=== PATIENT | female | born 1940 | race Caucasian/White ===

== ENCOUNTER → 2020-09-01 08:09 | Outpatient (BNVA) | payer MEDICARE, SELFPAY | PROVIDERS: Visit Provider Internal Medicine | DX: I48.92 Unspecified atrial flutter (principal); Z51.81 Encounter for therapeutic drug level monitoring; Z79.01 Long term (current) use of anticoagulants | CPT/HCPCS: 85610; 99211 ==

== ENCOUNTER → 2020-09-16 08:12 | Outpatient (BNVA) | payer MEDICARE, SELFPAY | PROVIDERS: Visit Provider Internal Medicine | DX: I48.92 Unspecified atrial flutter (principal); Z51.81 Encounter for therapeutic drug level monitoring; Z79.01 Long term (current) use of anticoagulants | CPT/HCPCS: 85610; 99211 ==

== ENCOUNTER → 2020-10-13 08:02 | Outpatient (BNVA) | payer MEDICARE, SELFPAY | PROVIDERS: Visit Provider Internal Medicine | DX: I48.92 Unspecified atrial flutter (principal); Z51.81 Encounter for therapeutic drug level monitoring; Z79.01 Long term (current) use of anticoagulants | CPT/HCPCS: 85610; 99211 ==

== ENCOUNTER → 2020-11-11 08:04 | Outpatient (BNVA) | payer MEDICARE, SELFPAY | PROVIDERS: Visit Provider Internal Medicine | DX: I48.92 Unspecified atrial flutter (principal); Z79.01 Long term (current) use of anticoagulants; Z51.81 Encounter for therapeutic drug level monitoring | CPT/HCPCS: 85610; 99211 ==

== ENCOUNTER → 2020-11-25 08:12 | Outpatient (BNVA) | payer MEDICARE, SELFPAY | PROVIDERS: Visit Provider Internal Medicine | DX: I48.92 Unspecified atrial flutter (principal); Z51.81 Encounter for therapeutic drug level monitoring; Z79.01 Long term (current) use of anticoagulants | CPT/HCPCS: 85610; 99211 ==

== ENCOUNTER → 2020-12-16 08:21 | Outpatient (BNVA) | payer MEDICARE, SELFPAY | PROVIDERS: PCP Internal Medicine; Visit Provider Internal Medicine | DX: I48.92 Unspecified atrial flutter (principal); Z51.81 Encounter for therapeutic drug level monitoring; Z79.01 Long term (current) use of anticoagulants | CPT/HCPCS: 85610; 99211 ==

== ENCOUNTER → 2021-01-13 08:02 | Outpatient (BNVA) | payer MEDICARE, SELFPAY | PROVIDERS: PCP Internal Medicine; Visit Provider Internal Medicine | DX: I48.92 Unspecified atrial flutter (principal); Z51.81 Encounter for therapeutic drug level monitoring; Z79.01 Long term (current) use of anticoagulants | CPT/HCPCS: 85610; 99211 ==

== ENCOUNTER → 2021-01-31 09:07 | Outpatient (BNVA) | payer MEDICARE, SELFPAY | PROVIDERS: PCP Internal Medicine; Visit Provider Internal Medicine | DX: E66.9 Obesity, unspecified (principal); J44.9 Chronic obstructive pulmonary disease, unspecified; I48.92 Unspecified atrial flutter; Z79.01 Long term (current) use of anticoagulants; Z51.81 Encounter for therapeutic drug level monitoring | CPT/HCPCS: 85610; 99211; 99212 ==

== ENCOUNTER → 2021-02-22 08:21 | Outpatient (BNVA) | payer MEDICARE, SELFPAY | PROVIDERS: PCP Internal Medicine; Visit Provider Internal Medicine | DX: I48.92 Unspecified atrial flutter (principal); Z79.01 Long term (current) use of anticoagulants; Z51.81 Encounter for therapeutic drug level monitoring | CPT/HCPCS: 85610; 99211 ==

== ENCOUNTER 2021-03-15 07:32 | Outpatient (REF) | payer MEDICARE, SELFPAY ==
[2021-03-15 08:08] LABS: MANUAL DIFF FLAG NO
[2021-03-15 08:25] LABS: Basophils Absolute Auto 0.1 X10*3/uL (0.0-0.2); Eosinophils Absolute Auto 0.2 X10*3/uL (0.0-0.4); Eosinophils Percent Auto 1.8 % (0-4); Hematocrit 45.4 % (37-47); Hemoglobin 15.1 g/dl (12.0-16.0); Imm Gran Abs Auto 0.03 X10*3/uL (0.00-0.03); Imm Gran Pct Auto 0.3 % (0.0-0.4); Lymphocytes Absolute Auto 3.1 X10*3/uL (1.2-4.9); Lymphocytes Percent Auto 33.7 % (20-40); Mean Corpuscular HGB Conc 33.3 g/dl (31.0-35.0); Mean Corpuscular Hemoglobin 30.7 pg (27.0-33.0); Mean Corpuscular Volume 92.3 fL (80-98); Mean Platelet Volume 9.9 fL (9.4-12.3); Monocytes Absolute Auto 0.6 X10*3/uL (0.1-1.2); Monocytes Percent Auto 6.7 % (2-11); Neutrophils Absolute Auto 5.2 X10*3/uL (2.0-8.3); Neutrophils Percent Auto 56.5 % (45-73); Platelet Count 311 X10*3/uL (160-400); Red Blood Count 4.92 X10*6/uL (4.20-5.50); Red Cell Distribution Width 12.4 % (11.0-16.0); White Blood Count 9.2 X10*3/uL (4.8-10.8)
[2021-03-15 08:35] LABS: Alanine Aminotransferase 13 U/L (0-31); Albumin Level 3.8 g/dL (3.5-5.0); Alkaline Phosphatase 63 U/L (39-117); Anion Gap 14 (12-20); Aspartate Amino Transferase 14 U/L (5-31); Bilirubin Total 0.3 mg/dL (0.0-1.0); Blood Urea Nitrogen 28 mg/dL (9-16); Calcium 9.4 mg/dL (8.4-10.2); Carbon Dioxide 30 mmol/L (22-29); Chloride 104 mmol/L (96-108); Cholesterol 198 mg/dL; Estimated Glomerular Filt Rate 51; Glucose Fasting 123 mg/dL (60-99); HDL Cholesterol 50 mg/dL; LDL Cholesterol Calculated 90 mg/dl; Potassium 3.9 mmol/L (3.3-5.1); Sodium 144 mmol/L (135-145); Total Protein 6.4 g/dL (6.5-8.0); Triglycerides 292 mg/dL
[2021-03-15 08:57] LABS: TSH reflex Free T4 1.25 uIU/mL (0.32-4.0)
[2021-03-15 09:19] LABS: Estimated Average Glucose 140 mg/dL; Hemoglobin A1c % 6.5 %
[2021-03-15 09:26] LABS: Glucose Urine UA NEG (NEG); Leukocyte Esterase Urine 2+ (NEG); Nitrite Urine POS (NEG); PH 6.5 (5.0-8.0); UACC Culture Trigger YES; Urine Blood TRACE (NEG); Urine Ketones NEG (NEG); Urine Protein NEG (NEG-TRACE)
[2021-03-15 09:33] LABS: Appearance Urine HAZY; Color Urine YELLOW
[2021-03-15 09:49] LABS: Bacteria Urine 4+ /LPF; RBC Urine 0-2 /HPF (0); Renal Epithelial Cells Urine TRACE /LPF; Squamous Epithelial Cell Urine 1+ /LPF
[2021-03-15 10:16] LABS: Creatinine Urine 113.31 mg/dL; Microalbum/Creatinine Ratio Ur 13.2 ug/mg cr
== END 2021-03-15 07:33 | disposition home or self-care (01) ==
LOC: HO.LAB 07:32
PROVIDERS: PCP Internal Medicine; Visit Provider Internal Medicine
DX: I10 Essential (primary) hypertension (principal); I48.0 Paroxysmal atrial fibrillation; E78.00 Pure hypercholesterolemia, unspecified; E11.69 Type 2 diabetes mellitus with other specified complication; E66.9 Obesity, unspecified
CPT/HCPCS: 36415; 80053; 80061; 81001; 81003; 82043; 83036; 84443; 85025; 87086; 87088; 87186

== ENCOUNTER → 2021-03-20 08:10 | Outpatient (BNVA) | payer MEDICARE, SELFPAY | PROVIDERS: PCP Internal Medicine; Visit Provider Internal Medicine | DX: I48.92 Unspecified atrial flutter (principal); Z51.81 Encounter for therapeutic drug level monitoring; Z79.01 Long term (current) use of anticoagulants | CPT/HCPCS: 85610; 99211 ==

== ENCOUNTER → 2021-04-18 08:00 | Outpatient (BNVA) | payer MEDICARE, SELFPAY | PROVIDERS: PCP Internal Medicine; Visit Provider Internal Medicine | DX: I48.92 Unspecified atrial flutter (principal); Z51.81 Encounter for therapeutic drug level monitoring; Z79.01 Long term (current) use of anticoagulants | CPT/HCPCS: 85610; 99211 ==

== ENCOUNTER → 2021-05-09 08:09 | Outpatient (REF) | payer MEDICARE, SELFPAY ==
--- NOTE | 2021-05-09 08:30 | CA_ITS ---
Transthoracic Echocardiogram Patient (Last, First, Middle): Rosa Carter R Gender: Female Date of : 1940 Age: 81 Procedure Date: 05/09/2021 Procedure Type: Transthoracic Echocardiogram Location: OP Height: 160.02 cm Weight: 89.36 kg BSA: 1.92 m2 Heart Rate: bpm BP: 140 / 70 mmHg Pool Nurse: Referring MD: Mike Tejada MD Symptoms: I35.0 NONRHEUMATIC Conclusions: - The left ventricular systolic function is normal. The visually estimated ejection fraction is between 60-65%. - There is moderate calcification of the aortic valve. There is mild aortic valve stenosis. Findings Procedure Information The patient receives contrast. Left Ventricle Normal left ventricular cavity size. The left ventricular systolic function is normal. The visually estimated ejection fraction is between 60-65%. There is no evidence of regional wall motion abnormalities. Evidence suggests grade I (mild) diastolic dysfunction. There is mild septal and mild basal asymmetric hypertrophy. Right Ventricle Normal right ventricular cavity size and systolic function. Atria Both atria are normal in size. Aortic Valve There is moderate calcification of the aortic valve. There is mild aortic valve stenosis. The peak aortic velocity is 2.48 m/s with a calculated peak gradient of 25 mmHg. The mean gradient is 13 mmHg. The aortic valve area is 1.60 cm2. There is no aortic valve regurgitation. Mitral Valve There is mild anterior mitral leaflet thickening. There is trace mitral valve regurgitation. There is no mitral valve stenosis. Pulmonic Valve The pulmonic valve was not well visualized. Tricuspid Valve Normal tricuspid valve structure. There is trace tricuspid valve regurgitation. The pulmonary artery systolic pressure is normal. Great Vessels The aortic annulus, sinuses of valsalva, and asc aorta are normal in size. Venous The inferior vena cava was not well visualized. The inferior vena cava is normal in size and collapses greater than 50% with inspiration. Pericardium/Pleural There is no evidence of pericardial effusion. Prior Study Comparison No significant change compared to prior study dated: 04/29/2020. Measurements 2D Linear Measurements RVIDd: 3.07 RVIDd Index: 0.30 IVSd: 1.15 0.6-0.9/0.6-1.0 cm LVIDd: 4.68 3.9-5.3/4.2-5.9 cm LVIDd Index: 0.46 2.4-3.2/2.2-3.1 cm/m2 LVIDs: 2.82 2.0-3.6 cm LVPWd: 0.95 0.7-1.1 cm Ao Root: 2.90 2.1-3.5 cm LA Diam: 3.30 2.7-3.8/3.0-4.0 cm LAIDs Index: 0.32 1.5-2.3 cm/m2 LV Mass: 216.96 67-162/88-224 g LV Mass Index: 21.12 43-95/49-115 g/m2 LVOT Diam: 2.30 3.0+(-)1.3 cm 2D Systolic Function EF 4C: 57.30 >55% EF 2C: 64.90 >55% EF BiP: 62.00 >55% Mitral Valve MV Pk E: 0.60 MV PK A: 0.80 MV Decel Time: 354.00 E/A: 0.70 E'Lateral: 6.96 E'Medial: 3.59 E/E' Med: 16.60 E/E' Lat: 8.60 Aortic Valve AoV Pk Daniel: 2.48 AoV Mn Daniel: 1.70 AoV VTI: 0.62 AoV Pk Grad: 25.00 Aov Mn Grad: 13.00 BELINDA Cont.VTI: 1.60 LVOT LVOT Pk Daniel: 0.91 LVOT Mn Daniel: 0.66 LVOT VTI: 0.24 LVOT Pk Grad: 3.00 LVOT Mn Grad: 2.00 LVOT Diam: 2.30 LVOT Area: 4.15 Diastolic Function MV Pk E: 0.60 MV Pk A: 0.80 E/A: 0.70 E'Medial: 3.59 E/E' Med: 16.60 E' Laterial: 6.96 E/E' Lat: 8.60 Tricuspid Valve TR Pk Daniel: 2.26 TR Pk Grad: 20.00 RA Press: 3.00 RVSP: 23.00 Great Vessels Aorta Ao Root-2D: 2.90 2.0-3.7 cm Ao Asc: 3.50 2.1-3.4 cm Ao Arch: 2.50 Updated in Other Vendor System with Status of Final Mike Tejada MD electronically signed on 05/09/2021 12:31:52 PM with status of Final
== END ==
LOC: HO.CARD 08:09
PROVIDERS: Visit Provider Internal Medicine
DX: J44.9 Chronic obstructive pulmonary disease, unspecified (principal); I35.0 Nonrheumatic aortic (valve) stenosis
CPT/HCPCS: 85610; 93306; 99211; Q9957

== ENCOUNTER → 2021-05-18 09:08 | Outpatient (BNVA) | payer MEDICARE, SELFPAY | PROVIDERS: PCP Internal Medicine; Referring Provider Internal Medicine; Visit Provider Internal Medicine | DX: I35.0 Nonrheumatic aortic (valve) stenosis (principal); I48.92 Unspecified atrial flutter; I10 Essential (primary) hypertension; E11.8 Type 2 diabetes mellitus with unspecified complications | CPT/HCPCS: 93005; 99212 ==

== ENCOUNTER → 2021-05-29 08:48 | Outpatient (BNVA) | payer MEDICARE, SELFPAY | PROVIDERS: PCP Internal Medicine; Visit Provider Internal Medicine | DX: I48.92 Unspecified atrial flutter (principal); J44.9 Chronic obstructive pulmonary disease, unspecified; E66.9 Obesity, unspecified; J98.4 Other disorders of lung; Z79.899 Other long term (current) drug therapy; Z51.81 Encounter for therapeutic drug level monitoring; Z79.01 Long term (current) use of anticoagulants | CPT/HCPCS: 85610; 99211; 99212 ==

== ENCOUNTER → 2021-06-27 08:12 | Outpatient (BNVA) | payer MEDICARE, SELFPAY | PROVIDERS: PCP Internal Medicine; Visit Provider Internal Medicine | DX: I48.92 Unspecified atrial flutter (principal); Z51.81 Encounter for therapeutic drug level monitoring; Z79.01 Long term (current) use of anticoagulants | CPT/HCPCS: 85610; 99211 ==

== ENCOUNTER → 2021-07-25 08:23 | Outpatient (BNVA) | payer MEDICARE, SELFPAY | PROVIDERS: PCP Internal Medicine; Visit Provider Internal Medicine | DX: I48.92 Unspecified atrial flutter (principal); Z51.81 Encounter for therapeutic drug level monitoring; Z79.01 Long term (current) use of anticoagulants | CPT/HCPCS: 85610; 99211 ==

== ENCOUNTER → 2021-08-29 08:13 | Outpatient (BNVA) | payer MEDICARE, SELFPAY | PROVIDERS: PCP Internal Medicine; Visit Provider Internal Medicine | DX: I48.92 Unspecified atrial flutter (principal); Z51.81 Encounter for therapeutic drug level monitoring; Z79.01 Long term (current) use of anticoagulants | CPT/HCPCS: 85610; 99211 ==

== ENCOUNTER → 2021-09-26 08:31 | Outpatient (BNVA) | payer MEDICARE, SELFPAY | PROVIDERS: PCP Internal Medicine; Visit Provider Internal Medicine | DX: I48.92 Unspecified atrial flutter (principal); Z51.81 Encounter for therapeutic drug level monitoring; Z79.01 Long term (current) use of anticoagulants | CPT/HCPCS: 85610; 99211 ==

== ENCOUNTER 2021-10-20 10:12 | Outpatient (REF) | payer MEDICARE, SELFPAY ==
[2021-10-20 10:28] LABS: MANUAL DIFF FLAG NO
[2021-10-20 11:03] LABS: Basophils Absolute Auto 0.1 X10*3/uL (0.0-0.2); Basophils Percent Auto 0.8 % (0-2); Eosinophils Absolute Auto 0.2 X10*3/uL (0.0-0.4); Eosinophils Percent Auto 1.9 % (0-4); Hematocrit 43.1 % (37.0-47.0); Hemoglobin 13.8 g/dl (12.0-16.0); Imm Gran Abs Auto 0.03 X10*3/uL (0.00-0.03); Imm Gran Pct Auto 0.3 % (0.0-0.4); Lymphocytes Absolute Auto 2.3 X10*3/uL (1.2-4.9); Lymphocytes Percent Auto 23.5 % (20-40); Mean Corpuscular Volume 93.7 fL (80.0-98.0); Monocytes Absolute Auto 0.7 X10*3/uL (0.1-1.2); Monocytes Percent Auto 6.9 % (2-11); Neutrophils Absolute Auto 6.4 x10*3/uL (2.0-8.3); Neutrophils Percent Auto 66.6 % (45-73); Platelet Count 405 X10*3/uL (160-400); Red Cell Distribution Width 12.5 % (11.0-16.0); White Blood Count 9.6 X10*3/uL (4.8-10.8)
[2021-10-20 11:15] LABS: Estimated Average Glucose 169 mg/dL; Hemoglobin A1c % 7.5 %
[2021-10-20 11:26] LABS: Alanine Aminotransferase 13 U/L (0-31); Albumin Level 3.7 g/dL (3.5-5.0); Alkaline Phosphatase 82 U/L (39-117); Anion Gap 12 (12-20); Aspartate Amino Transferase 16 U/L (5-31); Bilirubin Total 0.5 mg/dL (0.0-1.0); Blood Urea Nitrogen 21 mg/dL (9-16); Calcium 9.3 mg/dL (8.4-10.2); Carbon Dioxide 30 mmol/L (22-29); Chloride 105 mmol/L (96-108); Cholesterol 189 mg/dL; Estimated Glomerular Filt Rate 50; Glucose Fasting 134 mg/dL (60-99); HDL Cholesterol 46 mg/dL; LDL Cholesterol Calculated 97 mg/dl; Potassium 4.1 mmol/L (3.3-5.1); Sodium 143 mmol/L (135-145); Total Protein 6.7 g/dL (6.5-8.0); Triglycerides 233 mg/dL
[2021-10-20 13:58] LABS: Appearance Urine HAZY; Color Urine YELLOW; Glucose Urine UA NEG (NEG); Leukocyte Esterase Urine 2+ (NEG); Nitrite Urine POS (NEG); UACC Culture Trigger YES; Urine Blood TRACE (NEG); Urine Ketones NEG (NEG); Urine Protein NEG (NEG-TRACE)
[2021-10-20 14:28] LABS: Bacteria Urine 4+ /LPF; Squamous Epithelial Cell Urine 1+ /LPF
[2021-10-20 14:29] LABS: RBC Urine 0 /HPF (0)
== END 2021-10-20 10:13 | disposition home or self-care (01) ==
LOC: HO.LAB 10:12
PROVIDERS: PCP Internal Medicine; Visit Provider Internal Medicine
DX: I48.92 Unspecified atrial flutter (principal); Z51.81 Encounter for therapeutic drug level monitoring; Z79.01 Long term (current) use of anticoagulants; E11.69 Type 2 diabetes mellitus with other specified complication; E78.00 Pure hypercholesterolemia, unspecified; I10 Essential (primary) hypertension; E66.9 Obesity, unspecified; I48.0 Paroxysmal atrial fibrillation; J44.9 Chronic obstructive pulmonary disease, unspecified
CPT/HCPCS: 36415; 80053; 80061; 81001; 83036; 84443; 85025; 85610; 87086; 87088; 87186; 99211

== ENCOUNTER → 2021-11-02 08:34 | Outpatient (BNVA) | payer MEDICARE, SELFPAY | PROVIDERS: PCP Internal Medicine; Visit Provider Internal Medicine | DX: I48.92 Unspecified atrial flutter (principal); Z51.81 Encounter for therapeutic drug level monitoring; Z79.01 Long term (current) use of anticoagulants | CPT/HCPCS: 85610; 99211 ==

== ENCOUNTER → 2021-11-16 09:28 | Outpatient (BNVA) | payer MEDICARE, SELFPAY | PROVIDERS: PCP Internal Medicine; Visit Provider Internal Medicine | DX: I48.92 Unspecified atrial flutter (principal); Z51.81 Encounter for therapeutic drug level monitoring; Z79.01 Long term (current) use of anticoagulants | CPT/HCPCS: 85610; 99211 ==

== ENCOUNTER → 2021-11-28 09:39 | Outpatient (BNVA) | payer MEDICARE, SELFPAY | PROVIDERS: PCP Internal Medicine; Visit Provider Internal Medicine | DX: J44.9 Chronic obstructive pulmonary disease, unspecified (principal) | CPT/HCPCS: Q3014 ==

== ENCOUNTER → 2021-12-18 08:36 | Outpatient (BNVA) | payer MEDICARE, SELFPAY | PROVIDERS: PCP Internal Medicine; Visit Provider Internal Medicine | DX: I48.92 Unspecified atrial flutter (principal); Z51.81 Encounter for therapeutic drug level monitoring; Z79.01 Long term (current) use of anticoagulants | CPT/HCPCS: 85610; 99211 ==

== ENCOUNTER → 2022-01-15 08:46 | Outpatient (BNVA) | payer MEDICARE, SELFPAY | PROVIDERS: PCP Internal Medicine; Visit Provider Internal Medicine | DX: I48.92 Unspecified atrial flutter (principal); Z51.81 Encounter for therapeutic drug level monitoring; Z79.01 Long term (current) use of anticoagulants | CPT/HCPCS: 85610; 99211 ==

== ENCOUNTER 2022-02-15 08:26 | Outpatient (REF) | payer MEDICARE, SELFPAY ==
[2022-02-15 09:11] LABS: MANUAL DIFF FLAG NO
[2022-02-15 09:22] LABS: Basophils Absolute Auto 0.1 X10*3/uL (0.0-0.2); Basophils Percent Auto 0.9 % (0-2); Eosinophils Absolute Auto 0.2 X10*3/uL (0.0-0.4); Eosinophils Percent Auto 1.9 % (0-4); Hemoglobin 13.8 g/dl (12.0-16.0); Imm Gran Abs Auto 0.04 X10*3/uL (0.00-0.03); Imm Gran Pct Auto 0.4 % (0.0-0.4); Lymphocytes Absolute Auto 2.4 X10*3/uL (1.2-4.9); Lymphocytes Percent Auto 25.6 % (20-40); Mean Corpuscular HGB Conc 32.1 g/dl (31.0-35.0); Mean Corpuscular Hemoglobin 29.3 pg (27.0-33.0); Mean Corpuscular Volume 91.3 fL (80.0-98.0); Mean Platelet Volume 9.9 fL (9.4-12.3); Monocytes Absolute Auto 0.7 X10*3/uL (0.1-1.2); Monocytes Percent Auto 6.9 % (2-11); Neutrophils Absolute Auto 6.1 x10*3/uL (2.0-8.3); Neutrophils Percent Auto 64.3 % (45-73); Platelet Count 341 X10*3/uL (160-400); Red Blood Count 4.71 X10*6/uL (4.20-5.50); Red Cell Distribution Width 13.2 % (11.0-16.0); White Blood Count 9.5 X10*3/uL (4.8-10.8)
[2022-02-15 09:34] LABS: Estimated Average Glucose 189 mg/dL; Hemoglobin A1c % 8.2 %
[2022-02-15 10:04] LABS: Alanine Aminotransferase 12 U/L (0-31); Albumin Level 3.7 g/dL (3.5-5.0); Alkaline Phosphatase 77 U/L (39-117); Anion Gap 14 (12-20); Aspartate Amino Transferase 15 U/L (5-31); Bilirubin Total 0.7 mg/dL (0.0-1.0); Blood Urea Nitrogen 23 mg/dL (9-16); Calcium 9.1 mg/dL (8.4-10.2); Carbon Dioxide 28 mmol/L (22-29); Chloride 105 mmol/L (96-108); Cholesterol 190 mg/dL; Estimated Glomerular Filt Rate 51; Glucose Fasting 159 mg/dL (60-99); HDL Cholesterol 46 mg/dL; LDL Cholesterol Calculated 95 mg/dl; Potassium 3.8 mmol/L (3.3-5.1); Sodium 143 mmol/L (135-145); Total Protein 6.8 g/dL (6.5-8.0); Triglycerides 247 mg/dL
[2022-02-15 10:24] LABS: TSH reflex Free T4 1.03 uIU/mL (0.32-4.0); Vitamin D 25-OH Total 14.9 ng/mL (>30)
[2022-02-15 11:58] LABS: Appearance Urine CLOUDY; Color Urine YELLOW; Glucose Urine UA NEG (NEG); Leukocyte Esterase Urine 2+ (NEG); Nitrite Urine POS (NEG); Specific Gravity - Urine 1.025 (1.005-1.025); UACC Culture Trigger YES; Urine Blood 1+ (NEG); Urine Ketones NEG (NEG); Urine Protein NEG (NEG-TRACE)
[2022-02-15 12:07] LABS: Creatinine Urine 90.42 mg/dL; Microalbum/Creatinine Ratio Ur 27.6 ug/mg cr
[2022-02-15 12:31] LABS: Bacteria Urine 4+ /LPF; Squamous Epithelial Cell Urine 4+ /LPF
[2022-02-15 12:32] LABS: RBC Urine 0 /HPF (0)
== END 2022-02-15 08:27 | disposition home or self-care (01) ==
LOC: HO.LAB 08:26
PROVIDERS: PCP Internal Medicine; Visit Provider Internal Medicine
DX: I48.92 Unspecified atrial flutter (principal); I10 Essential (primary) hypertension; E11.9 Type 2 diabetes mellitus without complications; E78.00 Pure hypercholesterolemia, unspecified; E55.9 Vitamin D deficiency, unspecified; Z51.81 Encounter for therapeutic drug level monitoring; Z79.01 Long term (current) use of anticoagulants
CPT/HCPCS: 36415; 80053; 80061; 81001; 81003; 82043; 82306; 83036; 84443; 85025; 85610; 87086; 99211

== ENCOUNTER 2022-03-14 09:47 | Emergency (ER) | payer MEDICARE, SELFPAY ==
--- NOTE | ~2022-03-14 | CT_ITS ---
EXAMINATION: CT CERVICAL SPINE WITHOUT CONTRAST CLINICAL INFORMATION: Fall. Headache. Patient on blood thinning medicine. COMPARISON: None TECHNIQUE: Axial images through the cervical spine without contrast. Sagittal and coronal reconstructions on the technologist workstation were performed. This CT examination was performed using dose optimization techniques as appropriate, variously including the following: *Automated exposure control *Adjustment of mA and/or kV according to patient size (this includes techniques or standardized protocols for targeted exams where dose is matched to indication/reason for exam; i.e. extremities or head) *Use of iterative reconstruction technique DLP: 574 mGy-cm FINDINGS: There is mild 2 mm anterior subluxation of C4 respect to C5. There is slight head tilt to the left and curvature of the mid cervical spine to the right. Bone alignment is otherwise normal. No fracture or dislocation is seen. There is degenerative spondylosis and degenerative disc disease from C5-C6 to C7-T1. There is degenerative disc disease at C4-C5. There is bilateral multilevel facet arthritis. There are soft tissue well-corticated ossifications posterior to the C5 and C6 spinous processes likely related to old trauma. Prevertebral soft tissues are normal. There is a spiculated nodule at the left lung apex. This measures approximately 0.8 x 2.4 cm. This is new from November [address]/CT cervical spine wo con IMPRESSION: Degenerative changes. No fracture or dislocation seen. New spiculated nodule at the left lung apex. Follow-up chest CT recommended. Fleischner guidelines were followed.
--- NOTE | ~2022-03-14 | XR_ITS ---
EXAMINATION: XR CHEST CLINICAL INFORMATION: Hypoxia, cough, COPD. COMPARISON: 10/23/2017 chest radiographs. TECHNIQUE: 2 views of the chest were obtained. FINDINGS: No significant abnormality is noted involving the heart, lungs, mediastinum, bony thorax or soft tissues. XR/XR chest 2V IMPRESSION: No acute cardiopulmonary process.
--- NOTE | ~2022-03-14 | CT_ITS ---
CT HEAD WITHOUT CONTRAST CLINICAL INFORMATION: Headache. On Coumadin. COMPARISON: None available. TECHNIQUE: Contiguous axial imaging was performed from the skull base to vertex without intravenous administration of contrast. This CT examination was performed using dose optimization techniques as appropriate, variously including the following: *Automated exposure control *Adjustment of mA and/or kV according to patient size (this includes techniques or standardized protocols for targeted exams where dose is matched to indication/reason for exam; i.e. extremities or head) *Use of iterative reconstruction technique FINDINGS: Intraparenchymal hemorrhage with surrounding edema located within the right cerebellum. Additionally there is a peripherally calcified rounded tubular structure along the medial surface of the right cerebellar hemisphere. Right cerebellar hemorrhage with surrounding edema results in partial effacement of the fourth ventricle and leftward shift of the right cerebellar hemisphere. There is mild retroclival hemorrhage. There is mild lateral and third ventriculomegaly that should be followed to exclude developing hydrocephalus. The basilar cisterns are preserved. No significant soft tissue abnormality. No acute osseous abnormality. The paranasal sinuses and the mastoid air cells are well aerated. CT/CT head/brain wo con IMPRESSION: - Intraparenchymal hemorrhage with surrounding edema located within the right cerebellum. Additionally there is a peripherally calcified rounded tubular structure along the medial surface of the right cerebellar hemisphere adjacent to the hemorrhage. A CTA of the head and neck is recommended to exclude the presence of an underlying high flow vascular malformation or aneurysm. If the CTA is negative, a MRI of the brain with and without IV contrast would be advised to exclude an underlying pathologic lesion. - Right cerebellar hemorrhage with surrounding edema results in partial effacement of the fourth ventricle and leftward shift of the right cerebellar hemisphere. There is mild retroclival hemorrhage. - There is mild lateral and third ventriculomegaly that should be followed to exclude developing hydrocephalus. Covering provider paged with these findings at 1:57 PM on 03/14/2022.
[2022-03-14 10:08] VITALS: BP 139/72; PULSE 89; RESP 18; TEMP 37.1; O2SAT 92; BMI 37.2
[2022-03-14 10:48] LABS: MANUAL DIFF FLAG NO
[2022-03-14 10:52] LABS: Basophils Absolute Auto 0.1 X10*3/uL (0.0-0.2); Basophils Percent Auto 0.2 % (0-2); Hematocrit 42.9 % (37.0-47.0); Hemoglobin 14.4 g/dl (12.0-16.0); Imm Gran Abs Auto 0.15 X10*3/uL (0.00-0.03); Imm Gran Pct Auto 0.7 % (0.0-0.4); Lymphocytes Absolute Auto 1.1 X10*3/uL (1.2-4.9); Lymphocytes Percent Auto 5.2 % (20-40); Mean Corpuscular HGB Conc 33.6 g/dl (31.0-35.0); Mean Corpuscular Hemoglobin 29.8 pg (27.0-33.0); Mean Corpuscular Volume 88.8 fL (80.0-98.0); Mean Platelet Volume 9.6 fL (9.4-12.3); Monocytes Absolute Auto 0.9 X10*3/uL (0.1-1.2); Monocytes Percent Auto 4.6 % (2-11); Neutrophils Absolute Auto 18.4 x10*3/uL (2.0-8.3); Neutrophils Percent Auto 89.3 % (45-73); Platelet Count 360 X10*3/uL (160-400); Red Blood Count 4.83 X10*6/uL (4.20-5.50); Red Cell Distribution Width 13.4 % (11.0-16.0); White Blood Count 20.6 X10*3/uL (4.8-10.8)
[2022-03-14 10:54] LABS: INTERNATIONAL NORM RATIO 3.6 (0.9-1.1); Prothrombin Time 41.8 SEC (9.9-13.0)
[2022-03-14] MEDS: Albuterol Sulfate (0.083%) 2.5 MG/3 ML VIAL.NEB INHALE (10:57)
[2022-03-14] MEDS: Albuterol/Iprat 2.5/0.5MG 3 ML AMPUL.NEB INHALE (10:58)
[2022-03-14 11:00] VITALS: PULSE 82; RESP 20; O2SAT 95
--- NOTE | 2022-03-14 11:00 | ED_ITS ---
HPI - Fall General Chief Complaint: Fall Stated Complaint: fall head inj Time Seen by Provider: 03/14/22 10:15 Source: patient Mode of arrival: ambulatory Limitations: no limitations History of Present Illness HPI Narrative: Patient presents to the emergency department for evaluation headache. She reports a fall 3 days ago. She reports that she was going to her car, when suddenly she had fallen backwards striking her head. Denies any preceding dizziness or lightheadedness, vision changes, chest pain, shortness of breath, difficulty breathing. Does not recall tripping on anything in particular. She was not evaluated after the fall. She is on Coumadin. She reports that since she has been experiencing a diffuse headache that is becoming slightly worse, and today with vomiting x2 episodes. Currently denying fevers, chills, neck pain, neck stiffness, dizziness, lightheadedness, vision changes, confusion, numbness or tingling of the extremities, chest pain, shortness of breath breathing, palpitations, pedal edema abdominal pain, dysuria. Related Data Home Medications Medication Instructions Recorded Confirmed cholecalciferol (vitamin D3) 25 25 mcg PO DAILY 03/20/21 02/20/22 mcg (1,000 unit) capsule Previous Rx's Medication Instructions Recorded blood sugar diagnostic (OneTouch 1 strip MISCELLANEOUS BID #100 02/22/21 Ultra Blue Test Strip) strip lancets 30 gauge (OneTouch Delica See Rx Instructions .ROUTE BID 10/16/21 Plus Lancet) #100 cap potassium chloride 10 mEq 10 meq PO Q OTHER DAY #42 tab 11/07/21 tablet,extended release warfarin 2.5 mg tablet 2.5 mg PO DAILY #120 tab 11/25/21 albuterol sulfate 90 mcg/actuation 2 puff INHALATION QID PRN 30 Days 11/28/21 aerosol inhaler #8.5 g Breo Ellipta 200 mcg-25 mcg/dose 1 inh INHALATION DAILY #60 ea NS 01/15/22 powder for inhalation (fluticasone furoate-vilanterol) furosemide 20 mg tablet 20 mg PO DAILY #90 tab 01/18/22 lisinopril 20 1 tab PO DAILY #90 tab 01/18/22 mg-hydrochlorothiazide 12.5 mg tablet lovastatin 40 mg tablet 40 mg PO DAILY #90 tab 01/18/22 metoprolol succinate 50 mg 50 mg PO DAILY #90 tab 01/18/22 tablet,extended release 24 hr Januvia 100 mg tablet (sitagliptin) 100 mg PO DAILY 90 Days #90 tab NS 02/20/22 glipizide 5 mg tablet 5 mg PO BID 90 Days #180 tab 02/20/22 alogliptin 25 mg tablet 25 mg PO QAM 30 Days #30 tab 02/21/22 Allergies Allergy/AdvReac Type Severity Reaction Status Date / Time No Known Allergies Allergy Verified 02/20/22 09:06 [No Known Allergies*] Review of Systems Review of Systems: Constitutional: No weight loss. No fever. No chills. No weakness. No fatigue. Eye: No swelling. No redness. ENT: No sore throat. No rhinorrhea. No nasal congestion. No sore throat. No difficulty swallowing. Skin: No rash. No itching. Cardiovascular: No chest pain. No chest pressure. No palpitations. No pedal edema. Respiratory: No shortness of breath. positive cough. No sputum production. Gastrointestinal: No anorexia. No nausea. No vomiting. No diarrhea. No abdominal pain. No blood in stool. Genitourinary: No burning micturition. No urinary frequency. No incontinence. Neurologic: positive headache. No dizziness. No pre-syncope/ syncope. No unilateral weakness. No ataxia. No numbness. No tingling. No change in bowel or bladder control. Musculoskeletal: No muscle pain. No back pain. No joint pain. No stiffness. Hematologic: No bleeding. No bruising. Endocrine:. No polydipsia. Yes all other systems are reviewed and are negative PMFSH Past Medical History Attestation statement: The following information was validated with the patient. Source: old records reviewed Medical History Benign essential hypertension COPD (chronic obstructive pulmonary disease) Diabetes mellitus Non-rheumatic aortic stenosis Obesity (BMI 30-39.9) Paroxysmal atrial flutter Pure hypercholesterolemia Restrictive lung disease Surgical History No significant past surgical history Family History Family History Other Family history non-contributory Social History Social History (Reviewed 03/14/22 @ 11:49 by SILVIANO Morris Housing: House Alcohol intake: never Patient Tobacco Use Status: Former Tobacco user Quit Date: 3+ yrs ago Second Hand Smoke Exposure: Yes Use of substances other than those prescribed or required for medical reasons: No Advance Directives: Yes Advance Directives Information Provided: No Advance Directives on File: No service: No Current occupational status: retired Cognitive needs: No Hearing needs: No Vision needs: Yes Physical Exam Vital Signs: Vital Signs: Last Vital Signs Temp 99.2 F 03/14/22 14:30 Pulse 77 03/14/22 14:30 Resp 16 03/14/22 14:30 BP 118/58 L 03/14/22 14:30 Pulse Ox 93 03/14/22 14:30 BMI result Body Mass Index 37.2 Vital signs have been reviewed as normal and appeared to be correct. Blood pressure normal.? Heart rate normal.? Respiration rate normal. Temperature normal.? Oxygen saturation normal. Appearance: Alert.?Oriented to person, place and time. No acute distress.?Normal affect. Head: normocephalic atraumatic Eyes: Pupils equal, round and reactive to light.?EOMi. no nystagmus. Neck: no palpable midline cervical spine tenderness, step-offs, deformities ENT: Pharynx normal.?? Neck: Normal inspection.? Neck supple.?? CVS: Heart sounds normal. Normal heart rate and rhythm.? Pulses normal.?? Respiratory: No respiratory distress.? Lung sounds significantly diminished bilaterally, no wheezing, no rales Abdomen: Soft and non-tender. Normoactive bowel sounds. ? Skin: Skin warm and dry.? Normal skin color.? ? Extremities: No lower extremity edema.? No calf ttp? Neuro: Moves all extremities spontaneously. Sensation intact bilaterally. CN II- XII intact. No focal neuro deficits. Ambulates with normal steady gait. NIH Stroke Scale Time: 10:25 Level of Consciousness: Alert Level of Consciousness Questions: Answers both questions correctly Level of Consciousness Commands: Performs both tasks correctly Best Gaze: Normal Visual: No visual loss Facial Palsy: Normal Motor Arm (Right): No drift Motor Arm (Left): No drift Motor Leg (Right): No drift Motor Leg (Left): No drift Limb Ataxia: Absent Sensory: Normal Best Language: No aphasia Dysarthia: Normal Extinction and Inattention: No abnormality Score: 0 Course Course Course Narrative: patient is a 81-year-old female with a past medical history of hypertension, COPD, restrictive lung disease, diabetes, atrial flutter, aortic stenosis, on long-term anticoagulation with Coumadin. She presents to the emergency department for evaluation of a persistent headache with vomiting after a fall with head strike 3 days ago. She denies any loss of consciousness at that time. She was not evaluated after the fall, she states that she felt fine, therefore was not concerned. The mechanism of her fall is unclear, does not seem to have a mechanical component based on her history. NIH stroke score is negative. No focal neurological deficits. She is overall well-appearing, clear speech, ambulatory with a steady gait. On exam, her lung sounds are significantly diminished bilaterally, reports that she has been using her inhalers as prescribed, will order DuoNeb with total of albuterol 5 mg, Hypoxia on room air to 88%, while at rest and not talking. Applied O2 via nasal cannula at 2 L and O2 sat improved to 94%. Will obtain CBC to evaluate for leukocytosis/ anemia, CMP to evaluate for abnormal electrolytes /abnormal renal function/ abnormal hepatic function, CT of the head and cervical spine to evaluate for ICH/SAH/ fracture/subluxation, Chest x-ray to evaluate for consolidation/ infiltrate/ mass/ pulmonary congestion. Urinalysis to evaluate for infection. Reevaluation(s) Reevaluation #1: CBC reveals leukocytosis with WBC 20.6 with left shift, unclear for source of infection, urinalysis pending at this time, no obvious pneumonia on CXR. CT of the cervical spine revealed an incidental finding of a new spiculated nodule at the left lung apex new when compared to prior chest CT in November 2017. Cervical spine with no acute fracture subluxation, degenerative changes are present. CMP reveals BUN 32 and creatinine 1.24, both higher than prior labs, likely secondary to dehydration. INR 3.6, Supratherapeutic goal is 2-3. chest x-ray unremarkable for any acute cardiopulmonary, Time: 13:15 Reevaluation #2: CT of the head reveals an intraparenchymal hemorrhage with surrounding edema located within the right cerebellum and a peripherally calcified rounded tubular structure along the medial surface of the right cerebellar hemisphere adjacent to the hemorrhage. Partial effacement of the 4th ventricle and a leftward shift of the right cerebellar hemisphere, mild retroclivial hemorrhage. Patient with supratherapeutic INR, ordered vitamin K and Kcentra. Call placed to [facility] for transfer, awaiting call back from trauma service. Imaging uploaded to [facility] Trauma box. Patient and her family member updated on findings. Time: 14:01 Reevaluation #3: Patient placement called back, Trauma doctor currently in surgery, spoke with ED attending Jayy Moseley, who accepts patient for transfer to ED at [facility], transportation arrangements made with [facility] ambulance service. Time: 14:44 MDM - Fall Medical Records Attestation: I reviewed the patient's medical records. Lab Data Attestation: I reviewed the patient's lab results. Result diagrams: 03/14/22 10:44 03/14/22 10:44 Labs: Lab Results 03/14/22 03/14/22 03/14/22 Range/Units 10:44 10:44 10:44 WBC 20.6 H (4.8-10.8) X10*3/uL RBC 4.83 (4.20-5.50) X10*6/uL Hgb 14.4 (12.0-16.0) g/dl Hct 42.9 (37.0-47.0) % MCV 88.8 (80.0-98.0) fL MCH 29.8 (27.0-33.0) pg MCHC 33.6 (31.0-35.0) g/dl RDW 13.4 (11.0-16.0) % Plt Count 360 (160-400) X10*3/uL MPV 9.6 (9.4-12.3) fL Immature Gran % (Auto) 0.7 H (0.0-0.4) % Neut % (Auto) 89.3 H (45-73) % Lymph % (Auto) 5.2 L (20-40) % [place] % (Auto) 4.6 (2-11) % Eos % (Auto) 0.0 (0-4) % Baso % (Auto) 0.2 (0-2) % Lymph # (Auto) 1.1 L (1.2-4.9) X10*3/uL [place] # (Auto) 0.9 (0.1-1.2) X10*3/uL Eos # (Auto) 0.0 (0.0-0.4) X10*3/uL Baso # (Auto) 0.1 (0.0-0.2) X10*3/uL Abs Immat Gran (auto) 0.15 H (0.00-0.03) X10*3/uL Absolute Neuts (auto) 18.4 H (2.0-8.3) x10*3/uL Absolute Nucleated RBC 0.000 (0.0-0.012) X10*3/uL Nucleated RBC % (auto) 0.0 (0.0-0.2) /100WBC PT 41.8 H (9.9-13.0) SEC INR 3.6 H (0.9-1.1) Sodium 143 (135-145) mmol/L Potassium 3.7 (3.3-5.1) mmol/L Chloride 104 (96-108) mmol/L Carbon Dioxide 28 (22-29) mmol/L Anion Gap 15 (12-20) BUN 32 H (9-16) mg/dL Creatinine 1.24 (0.5-1.4) mg/dL Estim Creat Clear Calc 40.4 Estimated GFR 42 Random Glucose 268 H (60-115) mg/dL Calcium 9.6 (8.4-10.2) mg/dL Total Bilirubin 0.6 (0.0-1.0) mg/dL AST 14 (5-31) U/L ALT 14 (0-31) U/L Alkaline Phosphatase 71 (39-117) U/L Total Protein 7.1 (6.5-8.0) g/dL Albumin 3.8 (3.5-5.0) g/dL COVID-19 (ANEESH) (Negative) COVID-19 Clin Com 03/14/22 Range/Units 14:29 WBC (4.8-10.8) X10*3/uL RBC (4.20-5.50) X10*6/uL Hgb (12.0-16.0) g/dl Hct (37.0-47.0) % MCV (80.0-98.0) fL MCH (27.0-33.0) pg MCHC (31.0-35.0) g/dl RDW (11.0-16.0) % Plt Count (160-400) X10*3/uL MPV (9.4-12.3) fL Immature Gran % (Auto) (0.0-0.4) % Neut % (Auto) (45-73) % Lymph % (Auto) (20-40) % [place] % (Auto) (2-11) % Eos % (Auto) (0-4) % Baso % (Auto) (0-2) % Lymph # (Auto) (1.2-4.9) X10*3/uL [place] # (Auto) (0.1-1.2) X10*3/uL Eos # (Auto) (0.0-0.4) X10*3/uL Baso # (Auto) (0.0-0.2) X10*3/uL Abs Immat Gran (auto) (0.00-0.03) X10*3/uL Absolute Neuts (auto) (2.0-8.3) x10*3/uL Absolute Nucleated RBC (0.0-0.012) X10*3/uL Nucleated RBC % (auto) (0.0-0.2) /100WBC PT (9.9-13.0) SEC INR (0.9-1.1) Sodium (135-145) mmol/L Potassium (3.3-5.1) mmol/L Chloride (96-108) mmol/L Carbon Dioxide (22-29) mmol/L Anion Gap (12-20) BUN (9-16) mg/dL Creatinine (0.5-1.4) mg/dL Estim Creat Clear Calc Estimated GFR Random Glucose (60-115) mg/dL Calcium (8.4-10.2) mg/dL Total Bilirubin (0.0-1.0) mg/dL AST (5-31) U/L ALT (0-31) U/L Alkaline Phosphatase (39-117) U/L Total Protein (6.5-8.0) g/dL Albumin (3.5-5.0) g/dL COVID-19 (ANEESH) Negative (Negative) COVID-19 Clin Com See Note Imaging Data CT scan - head: Radiologist's impression: FINDINGS: Intraparenchymal hemorrhage with surrounding edema located within the right cerebellum. Additionally there is a peripherally calcified rounded tubular structure along the medial surface of the right cerebellar hemisphere. Right cerebellar hemorrhage with surrounding edema results in partial effacement of the fourth ventricle and leftward shift of the right cerebellar hemisphere. There is mild retroclival hemorrhage. There is mild lateral and third ventriculomegaly that should be followed to exclude developing hydrocephalus. The basilar cisterns are preserved. No significant soft tissue abnormality. No acute osseous abnormality. The paranasal sinuses and the mastoid air cells are well aerated. CT/CT head/brain wo con IMPRESSION: - Intraparenchymal hemorrhage with surrounding edema located within the right cerebellum. Additionally there is a peripherally calcified rounded tubular structure along the medial surface of the right cerebellar hemisphere adjacent to the hemorrhage. A CTA of the head and neck is recommended to exclude the presence of an underlying high flow vascular malformation or aneurysm. If the CTA is negative, a MRI of the brain with and without IV contrast would be advised to exclude an underlying pathologic lesion. ? - Right cerebellar hemorrhage with surrounding edema results in partial effacement of the fourth ventricle and leftward shift of the right cerebellar hemisphere. There is mild retroclival hemorrhage. ? - There is mild lateral and third ventriculomegaly that should be followed to exclude developing hydrocephalus. Chest x-ray: Radiologist's impression: FINDINGS: No significant abnormality is noted involving the heart, lungs, mediastinum, bony thorax or soft tissues. XR/XR chest 2V IMPRESSION: No acute cardiopulmonary process. CT cervical spine: Radiologist's impression: CT/CT cervical spine wo con IMPRESSION: Degenerative changes. No fracture or dislocation seen. New spiculated nodule at the left lung apex. Follow-up chest CT recommended Critical Care Time Critical Care Time Critical Care Time: Yes Total Critical Care Time: 45 Attestation: I personally attest to this time spent taking care of the patient Discharge Plan Discharge Clinical Impression: Acute cerebellar hemorrhage, Current use of anticoagulant therapy Patient Disposition: Xfer Acute Care Hospital Transfer Details: [facility] Prescriptions: No Action blood sugar diagnostic [OneTouch Ultra Blue Test Strip] Strip 1 strip miscellaneous BID Qty: 100 3RF lancets [OneTouch Delica Plus Lancet] 30 gauge misc See Rx Instructions .ROUTE BID Qty: 100 0RF Rx Instructions: 30 guage 2 times a day; potassium chloride 10 mEq tablet extended release 10 meq PO Q OTHER DAY Qty: 42 2RF warfarin 2.5 mg tablet 2.5 mg PO DAILY Qty: 120 3RF Protocol: Dose Management Condition: Saturday (Week One) Dose/Route: 2.5 mg Instruction: 1 x 2.5 mg tablet Condition: Saturday Dose/Route: 2.5 mg Instruction: 1 x 2.5 mg tablet Condition: Saturday Dose/Route: 5 mg Instruction: 2 x 2.5 mg tablets Condition: Saturday Dose/Route: 2.5 mg Instruction: 1 x 2.5 mg tablet Condition: Dose/Route: 2.5 mg Instruction: 1 x 2.5 mg tablet Condition: Saturday Dose/Route: 5 mg Instruction: 2 x 2.5 mg tablets Condition: Saturday Dose/Route: 2.5 mg Instruction: 1 x 2.5 mg tablet Condition: Saturday (Week Two) Dose/Route: 2.5 mg Instruction: 1 x 2.5 mg tablet Condition: Saturday Dose/Route: 2.5 mg Instruction: 1 x 2.5 mg tablet Condition: Saturday Dose/Route: 5 mg Instruction: 2 x 2.5 mg tablets Condition: Saturday Dose/Route: 2.5 mg Instruction: 1 x 2.5 mg tablet Condition: Dose/Route: 2.5 mg Instruction: 1 x 2.5 mg tablet Condition: Saturday Dose/Route: 5 mg Instruction: 2 x 2.5 mg tablets Condition: Saturday Dose/Route: 2.5 mg Instruction: 1 x 2.5 mg tablet Protocol Text: Adjustment Start Date: 02/15/22 INR Value: 2.8 INR Date: 02/15/22 Recheck Date: 03/15/22 Additional Instructions: eat a mix of reds and greens talk with MD maybe try physical therapy for balance and strength Breo Ellipta 200-25 mcg/dose blister with device 1 inh inhalation DAILY Qty: 60 5RF lovastatin 40 mg tablet 40 mg PO DAILY Qty: 90 3RF furosemide 20 mg tablet 20 mg PO DAILY Qty: 90 2RF lisinopril-hydrochlorothiazide 20-12.5 mg tablet 1 tab PO DAILY Qty: 90 1RF metoprolol succinate 50 mg tablet extended release 24 hr 50 mg PO DAILY Qty: 90 1RF alogliptin 25 mg tablet 25 mg PO QAM 30 Days Qty: 30 0RF cholecalciferol (vitamin D3) 25 mcg (1,000 unit) capsule 25 mcg PO DAILY 0RF Januvia 100 mg tablet 100 mg PO DAILY 90 Days Qty: 90 1RF glipizide 5 mg tablet 5 mg PO BID 90 Days Qty: 180 1RF albuterol sulfate 90 mcg/actuation HFA aerosol inhaler 2 puff inhalation QID PRN (Reason: shortness of breath or wheezing) 30 Days Qty: 8.5 5RF Interventions: Acute Care Transfer Worksheet (ED) Last Done: 03/14/22 15:41 Discharge Date/Time: 03/14/22 15:10
[2022-03-14 11:05] LABS: Albumin Level 3.8 g/dL (3.5-5.0); Anion Gap 15 (12-20); Aspartate Amino Transferase 14 U/L (5-31); Bilirubin Total 0.6 mg/dL (0.0-1.0); Blood Urea Nitrogen 32 mg/dL (9-16); Calcium 9.6 mg/dL (8.4-10.2); Carbon Dioxide 28 mmol/L (22-29); Chloride 104 mmol/L (96-108); Creatinine Clr Calc Pharmacy 40.4; Estimated Glomerular Filt Rate 42; Glucose Random 268 mg/dL (60-115); Potassium 3.7 mmol/L (3.3-5.1); Sodium 143 mmol/L (135-145); Total Protein 7.1 g/dL (6.5-8.0)
--- NOTE | 2022-03-14 11:52 | PC.NURSE ---
pt is a/o x 3. no hematoma noted
[2022-03-14 12:00] VITALS: BP 151/62; PULSE 65; RESP 18; TEMP 36.6
[2022-03-14 13:08] VITALS: BP 115/67; PULSE 85; RESP 14; TEMP 36.7; O2SAT 90
[2022-03-14 13:20] LABS: Alanine Aminotransferase 14 U/L (0-31); Alkaline Phosphatase 71 U/L (39-117)
[2022-03-14 13:53] VITALS: PULSE 78; RESP 18; O2SAT 93
--- NOTE | 2022-03-14 14:09 | PC.NURSE ---
KEON WILLINGHAM REQUEST CALL OUT TO [facility] PT TX LINE @ THIS TIME ZAINA ANSWERS, TAKES PT INFO, AND ASKS TO SPEAK WITH KEON WILLINGHAM TAKES OVER CALL RIGHT AWAY
[2022-03-14 14:30] VITALS: BP 118/58; PULSE 77; RESP 16; TEMP 37.3; O2SAT 93
[2022-03-14] MEDS: Phytonadione (Vit K1) 5 MG in 0.9 % Sodium Chloride 50 ML 50.5 MG IV (14:38)
[2022-03-14] MEDS: Hum Prothrombin Cplx(PCC)4Fact 2,500 UNIT in Container,Empty 0 ML 480 UNIT IV (14:44)
[2022-03-14 14:55] LABS: COVID-19 Test Negative (Negative); IDNOW Serial# 55D5AD1C
--- NOTE | 2022-03-14 15:40 | PC.NURSE ---
pt transfered dto [facility], pt/daughter aware of plan of care. rn to rn given to aj at [facility].
== END 2022-03-14 15:10 | disposition short-term general hospital (02) ==
PROVIDERS: Nurse Practitioner Family; Emergency Provider Emergency Medicine Emergency Medical Services; PCP Internal Medicine
DX: S06.340A Traumatic hemorrhage of right cerebrum without loss of consciousness, initial encounter (principal); G44.309 Post-traumatic headache, unspecified, not intractable; J44.9 Chronic obstructive pulmonary disease, unspecified; E11.9 Type 2 diabetes mellitus without complications; I10 Essential (primary) hypertension; R11.10 Vomiting, unspecified; R29.700 NIHSS score 0; W18.30XA Fall on same level, unspecified, initial encounter; Y93.9 Activity, unspecified; Y92.9 Unspecified place or not applicable; Y99.9 Unspecified external cause status; Z20.822 Contact with and (suspected) exposure to COVID-19; Z79.01 Long term (current) use of anticoagulants; Z87.891 Personal history of nicotine dependence; Z79.899 Other long term (current) drug therapy
CPT/HCPCS: 36415; 70450; 71046; 72125; 80053; 85025; 85610; 87635; 94640; 99285; J3430; J7168

== ENCOUNTER 2022-04-11 09:27 | Outpatient (REF) | payer MEDICARE, SELFPAY ==
[2022-04-11 09:48] LABS: MANUAL DIFF FLAG NO
[2022-04-11 10:04] LABS: Basophils Absolute Auto 0.1 X10*3/uL (0.0-0.2); Eosinophils Absolute Auto 0.2 X10*3/uL (0.0-0.4); Hematocrit 41.5 % (37.0-47.0); Hemoglobin 13.5 g/dl (12.0-16.0); Imm Gran Abs Auto 0.05 X10*3/uL (0.00-0.03); Imm Gran Pct Auto 0.5 % (0.0-0.4); Lymphocytes Absolute Auto 2.1 X10*3/uL (1.2-4.9); Lymphocytes Percent Auto 22.5 % (20-40); Mean Corpuscular HGB Conc 32.5 g/dl (31.0-35.0); Mean Corpuscular Hemoglobin 29.8 pg (27.0-33.0); Mean Corpuscular Volume 91.6 fL (80.0-98.0); Mean Platelet Volume 9.6 fL (9.4-12.3); Monocytes Absolute Auto 0.7 X10*3/uL (0.1-1.2); Monocytes Percent Auto 7.5 % (2-11); Neutrophils Absolute Auto 6.3 x10*3/uL (2.0-8.3); Neutrophils Percent Auto 66.5 % (45-73); Platelet Count 379 X10*3/uL (160-400); Red Blood Count 4.53 X10*6/uL (4.20-5.50); Red Cell Distribution Width 13.3 % (11.0-16.0); White Blood Count 9.4 X10*3/uL (4.8-10.8)
[2022-04-11 10:13] LABS: INTERNATIONAL NORM RATIO 1.2 (0.9-1.1); Prothrombin Time 14.1 SEC (9.9-13.0)
[2022-04-11 10:27] LABS: Estimated Average Glucose 154 mg/dL
[2022-04-11 10:34] LABS: Alanine Aminotransferase 10 U/L (0-31); Albumin Level 3.7 g/dL (3.5-5.0); Alkaline Phosphatase 70 U/L (39-117); Anion Gap 15 (12-20); Aspartate Amino Transferase 11 U/L (5-31); Bilirubin Total 0.5 mg/dL (0.0-1.0); Blood Urea Nitrogen 21 mg/dL (9-16); Calcium 9.4 mg/dL (8.4-10.2); Carbon Dioxide 28 mmol/L (22-29); Chloride 104 mmol/L (96-108); Cholesterol 212 mg/dL; Estimated Glomerular Filt Rate 52; Glucose Fasting 145 mg/dL (60-99); HDL Cholesterol 39 mg/dL; LDL Cholesterol Calculated 126 mg/dl; Sodium 143 mmol/L (135-145); Total Protein 6.8 g/dL (6.5-8.0); Triglycerides 237 mg/dL
[2022-04-11 10:51] LABS: Vitamin D 25-OH Total 15.2 ng/mL (>30)
== END 2022-04-11 09:28 | disposition home or self-care (01) ==
LOC: HO.LAB 09:27
PROVIDERS: Nurse Practitioner Family; Visit Provider Internal Medicine
DX: I10 Essential (primary) hypertension (principal); E11.69 Type 2 diabetes mellitus with other specified complication; E55.9 Vitamin D deficiency, unspecified; E78.00 Pure hypercholesterolemia, unspecified; Z79.01 Long term (current) use of anticoagulants
CPT/HCPCS: 36415; 80053; 80061; 82306; 83036; 84443; 85025; 85610

== ENCOUNTER → 2022-05-17 09:39 | Outpatient (BNVA) | payer MEDICARE, SELFPAY | PROVIDERS: PCP Internal Medicine; Visit Provider Internal Medicine | DX: J98.4 Other disorders of lung (principal); J44.9 Chronic obstructive pulmonary disease, unspecified | CPT/HCPCS: 99212 ==

== ENCOUNTER → 2022-06-21 11:04 | Outpatient (BNVA) | payer MEDICARE, SELFPAY | PROVIDERS: PCP Internal Medicine; Visit Provider Internal Medicine | DX: I48.92 Unspecified atrial flutter (principal); Z79.01 Long term (current) use of anticoagulants; Z51.81 Encounter for therapeutic drug level monitoring | CPT/HCPCS: Q3014 ==

== ENCOUNTER → 2022-06-27 08:01 | Outpatient (BNVA) | payer MEDICARE, SELFPAY | PROVIDERS: PCP Internal Medicine; Visit Provider Internal Medicine | DX: I48.92 Unspecified atrial flutter (principal); Z79.01 Long term (current) use of anticoagulants; Z51.81 Encounter for therapeutic drug level monitoring | CPT/HCPCS: 85610; 99211 ==

== ENCOUNTER 2022-07-05 07:46 | Outpatient (REF) | payer MEDICARE, SELFPAY ==
[2022-07-05 11:02] LABS: Creatinine Urine 98.49 mg/dL; Microalbum/Creatinine Ratio Ur 17.2 ug/mg cr
[2022-07-05 11:47] LABS: Appearance Urine Clear; Color Urine Yellow; Glucose Urine UA Negative (Negative); Leukocyte Esterase Urine Moderate (2+) (Negative); Nitrite Urine Positive (Negative); PH 6.5 (5.0-9.0); Specific Gravity - Urine 1.015 (1.005-1.025); Urine Blood Negative (Negative); Urine Ketones Negative (Negative); Urine Protein Negative (Neg-Trace)
[2022-07-05 11:56] LABS: Bacteria Urine 4+ (None Seen); Hyaline Casts Urine 0-2 /LPF (0-2); RBC Urine 0-2 /HPF (0-2); Squamous Epithelial Cell Urine 0-2 /HPF (0-2); UACC Culture Trigger YES; WBC Urine 21-50 /HPF (0-5)
== END 2022-07-05 07:47 | disposition home or self-care (01) ==
LOC: HO.LAB 07:46
PROVIDERS: PCP Internal Medicine; Visit Provider Internal Medicine
DX: E11.9 Type 2 diabetes mellitus without complications (principal); I10 Essential (primary) hypertension; B96.1 Klebsiella pneumoniae [K. pneumoniae] as the cause of diseases classified elsewhere; Z16.11 Resistance to penicillins
CPT/HCPCS: 81001; 81003; 82043; 85610; 87086; 87088; 87186; 99211

== ENCOUNTER → 2022-08-02 08:14 | Outpatient (BNVA) | payer MEDICARE, SELFPAY | PROVIDERS: PCP Internal Medicine; Visit Provider Internal Medicine | DX: I48.92 Unspecified atrial flutter (principal); Z79.01 Long term (current) use of anticoagulants; Z51.81 Encounter for therapeutic drug level monitoring | CPT/HCPCS: 85610; 99211 ==

== ENCOUNTER → 2022-09-05 08:28 | Outpatient (BNVA) | payer MEDICARE, SELFPAY | PROVIDERS: PCP Internal Medicine; Visit Provider Internal Medicine | DX: I48.92 Unspecified atrial flutter (principal); Z79.01 Long term (current) use of anticoagulants; Z51.81 Encounter for therapeutic drug level monitoring | CPT/HCPCS: 85610; 99211 ==

== ENCOUNTER → 2022-09-19 08:39 | Outpatient (BNVA) | payer MEDICARE, SELFPAY | PROVIDERS: PCP Internal Medicine; Visit Provider Internal Medicine | DX: J44.9 Chronic obstructive pulmonary disease, unspecified (principal); J98.4 Other disorders of lung; E66.9 Obesity, unspecified; I48.92 Unspecified atrial flutter; Z79.01 Long term (current) use of anticoagulants; Z51.81 Encounter for therapeutic drug level monitoring; Z68.39 Body mass index [BMI] 39.0-39.9, adult | CPT/HCPCS: 85610; 99211; 99212 ==

== ENCOUNTER → 2022-10-17 08:25 | Outpatient (BNVA) | payer MEDICARE, SELFPAY | PROVIDERS: PCP Internal Medicine; Visit Provider Internal Medicine | DX: I48.92 Unspecified atrial flutter (principal); Z51.81 Encounter for therapeutic drug level monitoring; Z79.01 Long term (current) use of anticoagulants | CPT/HCPCS: 85610; 99211 ==

== ENCOUNTER 2022-11-12 14:15 | Outpatient (REF) | payer MEDICARE, SELFPAY ==
[2022-11-12 14:33] LABS: MANUAL DIFF FLAG NO
[2022-11-12 14:54] LABS: Basophils Absolute Auto 0.1 X10*3/uL (0.0-0.2); Basophils Percent Auto 0.8 % (0-2); Eosinophils Absolute Auto 0.2 X10*3/uL (0.0-0.4); Eosinophils Percent Auto 1.3 % (0-4); Hematocrit 44.2 % (37.0-47.0); Hemoglobin 14.1 g/dl (12.0-16.0); Imm Gran Abs Auto 0.06 X10*3/uL (0.00-0.03); Imm Gran Pct Auto 0.5 % (0.0-0.4); Lymphocytes Absolute Auto 1.9 X10*3/uL (1.2-4.9); Lymphocytes Percent Auto 16.1 % (20-40); Mean Corpuscular HGB Conc 31.9 g/dl (31.0-35.0); Mean Corpuscular Hemoglobin 28.5 pg (27.0-33.0); Mean Corpuscular Volume 89.5 fL (80.0-98.0); Mean Platelet Volume 10.3 fL (9.4-12.3); Monocytes Absolute Auto 0.7 X10*3/uL (0.1-1.2); Neutrophils Absolute Auto 9.1 x10*3/uL (2.0-8.3); Neutrophils Percent Auto 75.3 % (45-73); Platelet Count 433 X10*3/uL (160-400); Red Blood Count 4.94 X10*6/uL (4.20-5.50); Red Cell Distribution Width 12.9 % (11.0-16.0); White Blood Count 12.1 X10*3/uL (4.8-10.8)
[2022-11-12 15:14] LABS: Estimated Average Glucose 174 mg/dL; Hemoglobin A1c % 7.7 %
[2022-11-12 15:39] LABS: Alanine Aminotransferase 10 U/L (0-31); Albumin Level 3.5 g/dL (3.5-5.0); Alkaline Phosphatase 79 U/L (39-117); Anion Gap 14 (12-20); Aspartate Amino Transferase 16 U/L (5-31); Bilirubin Total 0.4 mg/dL (0.0-1.0); Blood Urea Nitrogen 20 mg/dL (9-16); Calcium 9.2 mg/dL (8.4-10.2); Carbon Dioxide 29 mmol/L (22-29); Chloride 103 mmol/L (96-108); Cholesterol 148 mg/dL; Estimated Glomerular Filt Rate > 60; Glucose Fasting 115 mg/dL (60-99); HDL Cholesterol 37 mg/dL; LDL Cholesterol Calculated 69 mg/dl; Sodium 142 mmol/L (135-145); Total Protein 6.8 g/dL (6.5-8.0); Triglycerides 210 mg/dL
[2022-11-12 15:58] LABS: TSH reflex Free T4 1.17 uIU/mL (0.32-4.0)
== END 2022-11-12 14:16 | disposition home or self-care (01) ==
LOC: HO.LAB 14:15
PROVIDERS: PCP Internal Medicine; Visit Provider Internal Medicine
DX: E78.00 Pure hypercholesterolemia, unspecified (principal); E55.9 Vitamin D deficiency, unspecified; E11.9 Type 2 diabetes mellitus without complications; I10 Essential (primary) hypertension
CPT/HCPCS: 36415; 80053; 80061; 82306; 83036; 84443; 85025

== ENCOUNTER 2022-11-14 08:09 | Outpatient (REF) | payer MEDICARE, SELFPAY | END 2022-11-14 08:10 | disposition home or self-care (01) | LOC: HO.LAB 08:09 | PROVIDERS: Visit Provider Internal Medicine | DX: I48.92 Unspecified atrial flutter (principal); Z51.81 Encounter for therapeutic drug level monitoring; Z79.01 Long term (current) use of anticoagulants | CPT/HCPCS: 85610; 99211 ==

== ENCOUNTER 2022-11-22 08:54 | Outpatient (REF) | payer MEDICARE, SELFPAY ==
[2022-11-22 09:10] LABS: Appearance Urine Turbid; Color Urine Yellow; Glucose Urine UA Negative (Negative); Leukocyte Esterase Urine Small (1+) (Negative); Nitrite Urine Negative (Negative); PH 6.5 (5.0-9.0); UMIC TRIGGER UACC YES; Urine Blood Trace (Negative); Urine Ketones Negative (Negative); Urine Protein Trace mg/dL (Neg-Trace)
[2022-11-22 09:29] LABS: Bacteria Urine 4+ (None Seen); Hyaline Casts Urine 0-2 /LPF (0-2); UACC Culture Trigger YES
[2022-11-22 09:37] LABS: Creatinine Urine 77.41 mg/dL
== END 2022-11-22 08:55 | disposition home or self-care (01) ==
LOC: HO.LNP 08:54
PROVIDERS: Visit Provider Internal Medicine
DX: E11.9 Type 2 diabetes mellitus without complications (principal); I10 Essential (primary) hypertension; R82.90 Unspecified abnormal findings in urine
CPT/HCPCS: 81001; 81003; 82043; 87086

== ENCOUNTER → 2022-12-13 08:34 | Outpatient (BNVA) | payer MEDICARE, SELFPAY | PROVIDERS: PCP Internal Medicine; Visit Provider Internal Medicine | DX: I48.92 Unspecified atrial flutter (principal); Z79.01 Long term (current) use of anticoagulants; Z51.81 Encounter for therapeutic drug level monitoring | CPT/HCPCS: 85610; 99211 ==

== ENCOUNTER → 2023-01-16 08:16 | Outpatient (BNVA) | payer MEDICARE, SELFPAY | PROVIDERS: PCP Internal Medicine; Visit Provider Internal Medicine | DX: I48.92 Unspecified atrial flutter (principal); Z79.01 Long term (current) use of anticoagulants; Z51.81 Encounter for therapeutic drug level monitoring; J44.9 Chronic obstructive pulmonary disease, unspecified; J98.4 Other disorders of lung | CPT/HCPCS: 85610; 99211; 99212 ==

== ENCOUNTER → 2023-02-13 08:16 | Outpatient (BNVA) | payer MEDICARE, SELFPAY | PROVIDERS: PCP Internal Medicine; Visit Provider Internal Medicine | DX: I48.92 Unspecified atrial flutter (principal); Z51.81 Encounter for therapeutic drug level monitoring; Z79.01 Long term (current) use of anticoagulants | CPT/HCPCS: 85610; 99211 ==

== ENCOUNTER → 2023-03-13 08:16 | Outpatient (BNVA) | payer MEDICARE, SELFPAY | PROVIDERS: PCP Internal Medicine; Visit Provider Internal Medicine | DX: I48.92 Unspecified atrial flutter (principal); Z79.01 Long term (current) use of anticoagulants; Z51.81 Encounter for therapeutic drug level monitoring | CPT/HCPCS: 85610; 99211 ==

== ENCOUNTER 2023-03-29 15:57 | Emergency (ER) | payer MEDICARE, SELFPAY ==
[2023-03-29 16:02] VITALS: BP 125/92; PULSE 56; RESP 17; TEMP 36.2; O2SAT 97; BMI 36.4
--- NOTE | 2023-03-29 16:05 | ED.GENADULT ---
HPI - General Adult General Chief complaint: General Medical Stated complaint: blood in urine and stool Time Seen by Provider: 03/29/23 21:00 Source: patient and family (Daughter) Mode of arrival: ambulatory History of Present Illness HPI narrative: 82-year-old female who presents with complaints of 2 episodes of blood in her urine, she is currently on anticoagulation and in therapeutic range. She is on Coumadin for atrial fibrillation. She denies any fevers, chills, nausea, vomiting, shortness of breath, chest pain/palpitations. Related Data Home Medications Medication Instructions Recorded Confirmed cholecalciferol (vitamin D3) 25 25 mcg PO DAILY 03/20/21 03/26/23 mcg (1,000 unit) capsule alogliptin 25 mg tablet 25 mg PO DAILY 03/13/23 03/26/23 Previous Rx's Medication Instructions Recorded blood sugar diagnostic (OneTouch 1 strip miscellaneous BID for 02/22/21 Ultra Blue Test Strip) diabetes mellitus #100 strips albuterol sulfate 90 mcg/actuation 2 puff inhalation QID PRN 11/28/21 aerosol inhaler shortness of breath or wheezing 30 days #8.5 grams potassium chloride 10 mEq 10 meq PO Q OTHER DAY #42 tabs 07/30/22 tablet,extended release furosemide 20 mg tablet 20 mg PO DAILY #90 tabs 09/02/22 nadolol 40 mg tablet 40 mg PO DAILY #90 tabs 09/26/22 blood-glucose meter (OneTouch #1 ea 11/22/22 Ultra2 Meter kit) lancets 30 gauge (OneTouch Delica See Rx Instructions .Route BID for 11/22/22 Plus Lancet) diabetes mellitus #100 caps Breo Ellipta 200 mcg-25 mcg/dose See Rx Instructions .Route 12/18/22 powder for inhalation (fluticasone .COMPLEX #60 ea furoate-vilanterol) warfarin 2.5 mg tablet 2.5 mg PO DAILY #120 tabs 01/06/23 glipizide 5 mg tablet 10 mg PO BID 90 days #360 tabs 01/07/23 metformin 500 mg tablet,extended 500 mg PO BID 30 days #60 tabs 02/25/23 release 24hr lisinopril 20 1 tab PO DAILY #90 tabs 02/27/23 mg-hydrochlorothiazide 12.5 mg tablet lovastatin 40 mg tablet 40 mg PO DAILY #90 tabs 02/27/23 mupirocin 2 % topical ointment 1 appl topical BID 14 days #22 03/26/23 grams nystatin 100,000 unit/gram topical 1 appl topical TID 14 days #60 03/26/23 powder grams cefdinir 300 mg capsule 300 mg PO BID 7 days #14 caps 03/29/23 Allergies Allergy/AdvReac Type Severity Reaction Status Date / Time No Known Allergies Allergy Verified 03/26/23 11:27 [No Known Allergies*] Review of Systems Review of Systems: Pertinent positives and negatives as stated in [facility] Past Medical History Source: nursing notes reviewed Medical History Benign essential hypertension Cerebellar hemorrhage COPD (chronic obstructive pulmonary disease) Diabetes mellitus Non-rheumatic aortic stenosis Obesity (BMI 30-39.9) Paroxysmal atrial flutter Pure hypercholesterolemia Restrictive lung disease Surgical History No significant past surgical history Family History Family History Other Family history non-contributory Social History Social History Housing: House Alcohol intake: never Patient Tobacco Use Status: Former Tobacco user Quit Date: 3+ yrs ago e-Cigarette/Vaping Use: Never Used Second Hand Smoke Exposure: Yes Advance Directives: No Advance Directives Information Provided: No service: No Current occupational status: retired Cognitive needs: Yes (walker) Hearing needs: No Vision needs: Yes (glasses) Physical Exam ED Vital Signs: Vital Signs - 24 hr 03/29/23 16:02 03/29/23 17:58 03/29/23 20:17 Temperature 97.1 F 98.5 F 98.1 F Pulse Rate 56 66 56 Respiratory Rate 17 18 15 Blood Pressure 125/92 H 113/60 132/59 L Pulse Oximetry 97 66 L 94 Oxygen Delivery Method Room Air Room Air Room Air BMI result Body Mass Index 36.4 VITAL SIGNS: Reviewed. GENERAL: Well developed, well nourished, in no acute distress. HEAD: Normocephalic/atraumatic EYES: PERRLA, EOMI EARS: Ext canals without abnormality LUNGS: Normal breath sounds. No adventitious sounds or accessory muscle use. SpO2<94> CARDIOVASCULAR: Regular rate and rhythm without noted murmurs, no JVD or lower extremity edema. ABDOMEN: Soft, non-tender, non-distended with bowel sounds. MUSCULOSKELETAL: No tenderness, deformities, or effusions noted on gross inspection. EXTREMITIES: No cyanosis, clubbing or edema. SKIN: Inspection of the skin reveals no rashes NEUROLOGIC: Alert and oriented x 4. Strength and sensation to light touch were grossly intact x 4. Course Course Course Narrative: RME performed by Betsy Catherine PA-C. Patient is a 82 year old assigned female at presenting to the emergency department with blood in her urine. Labs ordered. Patient placed back in the waiting room pending room availability and results. Medical Decision Making Medical Decision Making MDM Narrative: 82-year-old female who otherwise appears well, she denies noticing any blood within her underwear and states that she has continued to be able to urinate without difficulty. She denies any pain or burning. She is afebrile and will treat patient after review of all investigations my interpretation is that patient has a urinary tract infection that is likely contributing to both the blood as well as the noted nitrite positivity. She received an initial dose of Augmentin here in the emergency room and will be discharged with a 1 week course of cefdinir, instructed to continue to drink plenty of fluids and she is otherwise discharged home because she is hemodynamically stable. I will refer this note over to her primary care doctor for re-evaluation and further outpatient management. She has been given strict return precautions. Differential Diagnosis Please see the discussion above Lab Data Please see the discussion above 03/29/23 16:18 03/29/23 16:18 Labs: Lab Results 03/29/23 03/29/23 03/29/23 Range/Units 16:18 16:18 16:18 WBC 13.4 H (4.8-10.8) X10*3/uL RBC 4.38 (4.20-5.50) X10*6/uL Hgb 11.8 L (12.0-16.0) g/dl Hct 37.6 (37.0-47.0) % MCV 85.8 (80.0-98.0) fL MCH 26.9 L (27.0-33.0) pg MCHC 31.4 (31.0-35.0) g/dl RDW 14.0 (11.0-16.0) % Plt Count 411 H (160-400) X10*3/uL MPV 10.0 (9.4-12.3) fL Immature Gran % (Auto) 0.5 H (0.0-0.4) % Neut % (Auto) 74.8 H (45-73) % Lymph % (Auto) 15.3 L (20-40) % [place] % (Auto) 7.4 (2-11) % Eos % (Auto) 1.3 (0-4) % Baso % (Auto) 0.7 (0-2) % Lymph # (Auto) 2.1 (1.2-4.9) X10*3/uL [place] # (Auto) 1.0 (0.1-1.2) X10*3/uL Eos # (Auto) 0.2 (0.0-0.4) X10*3/uL Baso # (Auto) 0.1 (0.0-0.2) X10*3/uL Abs Immat Gran (auto) 0.07 H (0.00-0.03) X10*3/uL Absolute Neuts (auto) 10.0 H (2.0-8.3) x10*3/uL Absolute Nucleated RBC 0.000 (0.0-0.012) X10*3/uL Nucleated RBC % (auto) 0.0 (0.0-0.2) /100WBC PT 29.3 H (10.0-13.1) SEC INR 2.5 H (0.9-1.1) APTT 40.1 H (26.0-36.4) SEC Sodium 139 (135-145) mmol/L Potassium 4.5 (3.3-5.1) mmol/L Chloride 103 (96-108) mmol/L Carbon Dioxide 28 (22-29) mmol/L Anion Gap 13 (12-20) BUN 19 H (9-16) mg/dL Creatinine 0.82 (0.5-1.4) mg/dL Estim Creat Clear Calc 57.1 Estimated GFR > 60 Random Glucose 145 H (60-115) mg/dL Calcium 9.3 (8.4-10.2) mg/dL Magnesium 1.9 (1.6-2.6) mg/dL Total Bilirubin 0.5 (0.0-1.0) mg/dL AST 25 (5-31) U/L ALT 15 (0-31) U/L Alkaline Phosphatase 149 H (39-117) U/L Total Protein 6.9 (6.5-8.0) g/dL Albumin 3.2 L (3.5-5.0) g/dL Urine Color Urine Appearance Urine pH (5.0-9.0) Ur Specific [place] (1.005-1.025) Urine Protein (Neg-Trace) mg/dL Urine Glucose (UA) (Negative) mg/dL Urine Ketones (Negative) mg/dL Urine Blood (Negative) Urine Nitrite (Negative) Ur Leukocyte Esterase (Negative) Urine RBC (0-2) /HPF Urine WBC (0-5) /HPF Ur Squamous Epith Cells (0-2) /HPF Urine Bacteria (None Seen) Hyaline Casts (0-2) /LPF 03/29/23 Range/Units 16:30 WBC (4.8-10.8) X10*3/uL RBC (4.20-5.50) X10*6/uL Hgb (12.0-16.0) g/dl Hct (37.0-47.0) % MCV (80.0-98.0) fL MCH (27.0-33.0) pg MCHC (31.0-35.0) g/dl RDW (11.0-16.0) % Plt Count (160-400) X10*3/uL MPV (9.4-12.3) fL Immature Gran % (Auto) (0.0-0.4) % Neut % (Auto) (45-73) % Lymph % (Auto) (20-40) % [place] % (Auto) (2-11) % Eos % (Auto) (0-4) % Baso % (Auto) (0-2) % Lymph # (Auto) (1.2-4.9) X10*3/uL [place] # (Auto) (0.1-1.2) X10*3/uL Eos # (Auto) (0.0-0.4) X10*3/uL Baso # (Auto) (0.0-0.2) X10*3/uL Abs Immat Gran (auto) (0.00-0.03) X10*3/uL Absolute Neuts (auto) (2.0-8.3) x10*3/uL Absolute Nucleated RBC (0.0-0.012) X10*3/uL Nucleated RBC % (auto) (0.0-0.2) /100WBC PT (10.0-13.1) SEC INR (0.9-1.1) APTT (26.0-36.4) SEC Sodium (135-145) mmol/L Potassium (3.3-5.1) mmol/L Chloride (96-108) mmol/L Carbon Dioxide (22-29) mmol/L Anion Gap (12-20) BUN (9-16) mg/dL Creatinine (0.5-1.4) mg/dL Estim Creat Clear Calc Estimated GFR Random Glucose (60-115) mg/dL Calcium (8.4-10.2) mg/dL Magnesium (1.6-2.6) mg/dL Total Bilirubin (0.0-1.0) mg/dL AST (5-31) U/L ALT (0-31) U/L Alkaline Phosphatase (39-117) U/L Total Protein (6.5-8.0) g/dL Albumin (3.5-5.0) g/dL Urine Color RED Urine Appearance Turbid Urine pH 6.5 (5.0-9.0) Ur Specific [place] 1.025 (1.005-1.025) Urine Protein 300 (3+) H (Neg-Trace) mg/dL Urine Glucose (UA) 100 H (Negative) mg/dL Urine Ketones Trace (Negative) mg/dL Urine Blood Large (3+) H (Negative) Urine Nitrite Positive H (Negative) Ur Leukocyte Esterase Small (1+) H (Negative) Urine RBC >20 H (0-2) /HPF Urine WBC >50 H (0-5) /HPF Ur Squamous Epith Cells 11-20 (0-2) /HPF Urine Bacteria 4+ (None Seen) Hyaline Casts 0-2 (0-2) /LPF External Record Review External record reviewed: Prior outpatient labs Discharge Plan Discharge Clinical Impression: Cystitis, Current use of anticoagulant therapy, Hematuria Patient Disposition: Home, Self-Care Instructions: Urinary Tract Infection in Women (ED), Hematuria (ED), Blood Thinners (ED), Urinary Tract Infection in Older Adults (ED) Additional Instructions: 1. Resume all home medications as prescribed. 2. Increase the amount of water intake to clear your system. Complete the entire course of antibiotics as ordered. 3. Follow-up with your primary care provider on Saturday morning. 4. If your unable to urinate for more than 8 hours you need to return to the emergency room, if you notice any blood in your underwear you need to return to the emergency room. Prescriptions: New cefdinir 300 mg capsule 300 mg PO BID 7 Days Qty: 14 0RF No Action blood sugar diagnostic [[employer] Ultra Blue Test Strip] Strip 1 strip miscellaneous BID Qty: 100 3RF potassium chloride 10 mEq tablet extended release 10 meq PO Q OTHER DAY Qty: 42 2RF furosemide 20 mg tablet 20 mg PO DAILY Qty: 90 2RF nadolol 40 mg tablet 40 mg PO DAILY Qty: 90 0RF Breo Ellipta 200-25 mcg/dose blister with device See Rx Instructions .ROUTE .COMPLEX Qty: 60 4RF Dose Instruction: TAKE 1 PUFF BY MOUTH EVERY DAY Rx Instructions: TAKE 1 PUFF BY MOUTH EVERY DAY warfarin 2.5 mg tablet 2.5 mg PO DAILY Qty: 120 3RF Hold Instructions: Doctor's Order Protocol: Dose Management Condition: Saturday (Week One) Dose/Route: 2.5 mg Instruction: 1 x 2.5 mg tablet Condition: Saturday Dose/Route: 2.5 mg Instruction: 1 x 2.5 mg tablet Condition: Saturday Dose/Route: 2.5 mg Instruction: 1 x 2.5 mg tablet Condition: Saturday Dose/Route: 2.5 mg Instruction: 1 x 2.5 mg tablet Condition: Dose/Route: 2.5 mg Instruction: 1 x 2.5 mg tablet Condition: Saturday Dose/Route: 2.5 mg Instruction: 1 x 2.5 mg tablet Condition: Saturday Dose/Route: 5 mg Instruction: 2 x 2.5 mg tablets Condition: Saturday (Week Two) Dose/Route: 2.5 mg Instruction: 1 x 2.5 mg tablet Condition: Saturday Dose/Route: 2.5 mg Instruction: 1 x 2.5 mg tablet Condition: Saturday Dose/Route: 2.5 mg Instruction: 1 x 2.5 mg tablet Condition: Saturday Dose/Route: 2.5 mg Instruction: 1 x 2.5 mg tablet Condition: Dose/Route: 2.5 mg Instruction: 1 x 2.5 mg tablet Condition: Saturday Dose/Route: 2.5 mg Instruction: 1 x 2.5 mg tablet Condition: Saturday Dose/Route: 5 mg Instruction: 2 x 2.5 mg tablets Protocol Text: Adjustment Start Date: Saturday03/13/23 INR Value: 2.3 INR Date: 03/13/23 Recheck Date: 04/10/23 Additional Instructions: cont reg dosing balance reds and greens call with any changes in medications glipizide 5 mg tablet 10 mg PO BID 90 Days Qty: 360 1RF lisinopril-hydrochlorothiazide 20-12.5 mg tablet 1 tab PO DAILY Qty: 90 1RF lovastatin 40 mg tablet 40 mg PO DAILY Qty: 90 3RF Hold Instructions: PT STATED [facility]DC STOPPED IT cholecalciferol (vitamin D3) 25 mcg (1,000 unit) capsule 25 mcg PO DAILY (DME) blood-glucose meter [OneTouch Ultra2 Meter] Kit See Rx Instructions .Route Qty: 1 0RF Rx Instructions: As directed lancets [OneTouch Delica Plus Lancet] 30 gauge misc See Rx Instructions .ROUTE BID Qty: 100 0RF Rx Instructions: 30 guage 2 times a day; nystatin 100,000 unit/gram powder 1 appl topical TID 14 Days Qty: 60 0RF mupirocin 2 % ointment 1 appl topical BID 14 Days Qty: 22 0RF metformin 500 mg tablet extended release 24hr 500 mg PO BID 30 Days Qty: 60 3RF albuterol sulfate 90 mcg/actuation HFA aerosol inhaler 2 puff inhalation QID PRN (Reason: shortness of breath or wheezing) 30 Days Qty: 8.5 5RF alogliptin 25 mg tablet 25 mg PO DAILY Referrals: Joe Tomlinson MD [Primary Care Provider] -
[2023-03-29 16:23] LABS: MANUAL DIFF FLAG NO
[2023-03-29 16:30] LABS: Basophils Absolute Auto 0.1 X10*3/uL (0.0-0.2); Basophils Percent Auto 0.7 % (0-2); Eosinophils Absolute Auto 0.2 X10*3/uL (0.0-0.4); Eosinophils Percent Auto 1.3 % (0-4); Hematocrit 37.6 % (37.0-47.0); Hemoglobin 11.8 g/dl (12.0-16.0); Imm Gran Abs Auto 0.07 X10*3/uL (0.00-0.03); Imm Gran Pct Auto 0.5 % (0.0-0.4); Lymphocytes Absolute Auto 2.1 X10*3/uL (1.2-4.9); Lymphocytes Percent Auto 15.3 % (20-40); Mean Corpuscular HGB Conc 31.4 g/dl (31.0-35.0); Mean Corpuscular Hemoglobin 26.9 pg (27.0-33.0); Mean Corpuscular Volume 85.8 fL (80.0-98.0); Monocytes Percent Auto 7.4 % (2-11); Neutrophils Percent Auto 74.8 % (45-73); Platelet Count 411 X10*3/uL (160-400); Red Blood Count 4.38 X10*6/uL (4.20-5.50); White Blood Count 13.4 X10*3/uL (4.8-10.8)
[2023-03-29 16:36] LABS: INTERNATIONAL NORM RATIO 2.5 (0.9-1.1); Prothrombin Time 29.3 SEC (10.0-13.1)
[2023-03-29 16:38] LABS: Appearance Urine Turbid; Color Urine RED; Glucose Urine UA 100 mg/dL (Negative); Leukocyte Esterase Urine Small (1+) (Negative); Nitrite Urine Positive (Negative); PH 6.5 (5.0-9.0); Specific Gravity - Urine 1.025 (1.005-1.025); UMIC TRIGGER UACC YES; Urine Blood Large (3+) (Negative); Urine Ketones Trace mg/dL (Negative); Urine Protein 300 (3+) mg/dL (Neg-Trace)
[2023-03-29 16:39] LABS: Partial Thromboplastin Time 40.1 SEC (26.0-36.4)
[2023-03-29 16:51] LABS: Alanine Aminotransferase 15 U/L (0-31); Albumin Level 3.2 g/dL (3.5-5.0); Alkaline Phosphatase 149 U/L (39-117); Anion Gap 13 (12-20); Aspartate Amino Transferase 25 U/L (5-31); Bilirubin Total 0.5 mg/dL (0.0-1.0); Blood Urea Nitrogen 19 mg/dL (9-16); Calcium 9.3 mg/dL (8.4-10.2); Carbon Dioxide 28 mmol/L (22-29); Chloride 103 mmol/L (96-108); Creatinine Clr Calc Pharmacy 57.1; Estimated Glomerular Filt Rate > 60; Glucose Random 145 mg/dL (60-115); Magnesium 1.9 mg/dL (1.6-2.6); Potassium 4.5 mmol/L (3.3-5.1); Sodium 139 mmol/L (135-145); Total Protein 6.9 g/dL (6.5-8.0)
[2023-03-29 16:59] LABS: Bacteria Urine 4+ (None Seen); Hyaline Casts Urine 0-2 /LPF (0-2); RBC Urine >20 /HPF (0-2); UACC Culture Trigger YES; WBC Urine >50 /HPF (0-5)
[2023-03-29 17:58] VITALS: BP 113/60; PULSE 66; RESP 18; TEMP 36.9; O2SAT 66
--- NOTE | 2023-03-29 19:58 | PC.NURSE ---
pt becoming increasingly anxious due to no provider seeing patient. This RN reassured patient and ensured that she would get seen by a provider when one signs up for her
[2023-03-29 20:17] VITALS: BP 132/59; PULSE 56; RESP 15; TEMP 36.7; O2SAT 94
--- NOTE | 2023-03-29 21:10 | PC.NURSE ---
pt becoming increasingy agitated, awaiting MD sign up. This RN spoke with MD Burt about the patient
[2023-03-29 21:38] VITALS: BP 124/61; PULSE 59; RESP 15; TEMP 36.8; O2SAT 96
--- NOTE | 2023-03-29 21:40 | PC.NURSE ---
vital signs at 1758 were inaccurate, pts O2 has never been below 92%
[2023-03-29] MEDS: Amoxicillin/Potassium Clav 875 MG TABLET PO (21:51)
== END 2023-03-29 21:55 | disposition home or self-care (01) ==
PROVIDERS: Physician Assistant Medical; Emergency Provider Student in an Organized Health Care Education/Training Program; PCP Internal Medicine
DX: N30.91 Cystitis, unspecified with hematuria (principal); B96.89 Other specified bacterial agents as the cause of diseases classified elsewhere; E11.9 Type 2 diabetes mellitus without complications; I10 Essential (primary) hypertension; E78.00 Pure hypercholesterolemia, unspecified; I48.0 Paroxysmal atrial fibrillation; Z87.891 Personal history of nicotine dependence; Z79.01 Long term (current) use of anticoagulants; Z79.899 Other long term (current) drug therapy; Z79.84 Long term (current) use of oral hypoglycemic drugs
CPT/HCPCS: 36415; 80053; 81001; 83735; 85025; 85610; 85730; 87086; 87088; 87186; 99283; 99284

== ENCOUNTER 2023-04-10 12:44 | Outpatient (RCR) | payer MEDICARE, SELFPAY | END 2023-04-24 16:00 | disposition home or self-care (01) | LOC: HO.WCC 12:44 | PROVIDERS: PCP Internal Medicine; Visit Provider Surgery | DX: L98.492 Non-pressure chronic ulcer of skin of other sites with fat layer exposed (principal); I10 Essential (primary) hypertension; J44.9 Chronic obstructive pulmonary disease, unspecified; R91.1 Solitary pulmonary nodule; Z87.891 Personal history of nicotine dependence; Z79.84 Long term (current) use of oral hypoglycemic drugs; Z79.01 Long term (current) use of anticoagulants; Z79.899 Other long term (current) drug therapy | CPT/HCPCS: 11042; 97602; 99212 ==

== ENCOUNTER → 2023-04-17 08:11 | Outpatient (BNVA) | payer MEDICARE, SELFPAY | PROVIDERS: PCP Internal Medicine; Visit Provider Internal Medicine | DX: I48.92 Unspecified atrial flutter (principal); Z79.01 Long term (current) use of anticoagulants; Z51.81 Encounter for therapeutic drug level monitoring | CPT/HCPCS: 85610; 99211 ==

== ENCOUNTER → 2023-04-24 09:06 | Outpatient (BNVA) | payer MEDICARE, SELFPAY | PROVIDERS: PCP Internal Medicine; Visit Provider Internal Medicine | DX: I48.92 Unspecified atrial flutter (principal); Z79.01 Long term (current) use of anticoagulants; Z51.81 Encounter for therapeutic drug level monitoring | CPT/HCPCS: 85610; 99211 ==

== ENCOUNTER 2023-04-30 13:22 | Inpatient (IN) | payer MEDICARE, SELFPAY ==
[2023-04-30] VITALS (7 sets, daily range): BP systolic 71–154; BP diastolic 35–108; PULSE 66–90; RESP 16–24; TEMP 36.4–36.8; O2SAT 86–94; BMI 35.3
--- NOTE | ~2023-04-30 | XR_ITS ---
EXAMINATION: XR CHEST CLINICAL INFORMATION: Shortness of breath COMPARISON: 04/30/2023 CT TECHNIQUE: Frontal view of the chest was obtained. FINDINGS: Lung volumes are symmetric. Right apical lung mass redemonstrated along with a few scattered bilateral nodules, better delineated on recent CT. No new focal consolidation is seen. No evidence of pneumothorax or significant pleural effusion. Cardiac size is within normal limits. Calcification is present at the aortic arch. Degenerative changes are noted in the spine. XR/XR chest 1V IMPRESSION: Redemonstrated right apical lung mass and scattered nodules, better delineated on recent CT. No new acute findings identified.
--- NOTE | ~2023-04-30 | XR_ITS ---
EXAMINATION: XR HIP, LEFT CLINICAL INFORMATION: Pain with walking. COMPARISON: X-ray left hip 12/08/2010 TECHNIQUE: Three views of the left hip. Pelvis one view. FINDINGS: Mild left hip arthritis, joint space loss. The femur is externally rotated in positioning. On the frontal radiographs, no discrete fracture is seen in the proximal left femur. However, evaluation is incomplete/limited, with the proximal femur including the femoral head, neck and intertrochanteric region is not well visualized on the crosstable views due to overlapping soft tissue structures. The more distal aspect of the visualized femur appears intact. There is vascular calcification present. On the pelvic view, there is mild right hip arthritis. Moderate symphysis pubis degeneration. Bilateral SI joint arthritis. Spondylosis in the visualized lower lumbar spine. No acute pelvic fractures identified. Prominent vascular calcification. XR/XR hip LT w PEL1V IMPRESSION: *Left hip arthritis. *Limited incomplete evaluation for left hip fracture, the provided views. On the frontal radiographs, no definite fracture is evident. Clinically correlate. Further evaluation with repeat radiographs or cross-sectional imaging as clinically warranted. *Mild right hip arthritis. *Additional arthritis as detailed above.
--- NOTE | ~2023-04-30 | XR_ITS ---
EXAMINATION: XR CHEST CLINICAL INFORMATION: Dyspnea COMPARISON: X-ray 03/23/2023 TECHNIQUE: Frontal view of the chest was obtained. FINDINGS: Rotated positioning. Lordotic view. There is borderline prominence of the cardiac silhouette, likely related to positioning/technique. Calcification of the aortic arch. Focus of hazy opacity right upper lung, right lower lung, in the left midlung, new from previous. This raises a possibility of infiltrates. Streaky opacities in bilateral lung apices, stable from previous. No pleural effusion. No pulmonary edema. No pneumothorax. XR/XR chest 1V IMPRESSION: Multifocal hazy opacities in bilateral lungs, raises the possibility of infiltrates from inflammatory/infectious process.
--- NOTE | ~2023-04-30 | US_ITS ---
EXAMINATION: US DIAGNOSTIC ULTRASOUND BREAST, LEFT CLINICAL INFORMATION: Open wound under left breast, r/o abscess, mass. COMPARISON: None available. TECHNIQUE: Ultrasound of the breast is performed with real-time wright scale imaging and color Doppler. FINDINGS: Targeted ultrasound of the area of the wound at about 4:00 position There is no focal suspicious finding. There is no solid mass, architectural abnormality, duct ectasia, or edema in the soft tissue planes. Results are discussed with the patient at time of visit. US/US breast LT limited IMPRESSION: 1. No suspicious ultrasound findings. ASSESSMENT: BI-RADS 1: Negative RECOMMENDATION: 1. Patient should be managed based on the clinical impression. Decision to proceed with biopsy should be based on clinical grounds and degree of clinical concern. 2. Otherwise, routine annual screening mammography.
--- NOTE | ~2023-04-30 | CT_ITS ---
EXAMINATION: CT CHEST WITHOUT CONTRAST CLINICAL INFORMATION: Hypoxia with question of pneumonia COMPARISON: Chest radiograph earlier today: Multifocal hazy opacities in bilateral lungs, raises the possibility of infiltrates from inflammatory/infectious process. CT chest 11/14/2016 TECHNIQUE: Multidetector volumetric CT imaging of the chest was done. Axial MIP volume rendering provided. Sagittal and coronal reformatted images were obtained. This CT examination was performed using dose optimization techniques as appropriate, variously including the following: *Automated exposure control *Adjustment of mA and/or kV according to patient size (this includes techniques or standardized protocols for targeted exams where dose is matched to indication/reason for exam; i.e. extremities or head) *Use of iterative reconstruction technique DLP: 511 mGy-cm FINDINGS: LUNGS: At the right apex medially there is a new 3.9 x 2.9 x 3.6 cm mass present (8:48). This extends medially and abuts the superior mediastinum. this from the SVC is difficult without IV contrast. Just below this there is a thick-walled cavitary mass measuring 3.1 x 2.8 x 2.4 cm (5:191). These findings are new when compared to the 2017 At the left apex there is a 1.7 x 1.4 x 1.2 cm pleural-based mass (5:148). This is a new finding when compared to the 2017 study. There is a pleural-based rounded 1.2 cm nodule in the right upper lobe posteriorly (5:237). 5 mm right upper lobe nodule anteromedially (5:233). Multiple other smaller pulmonary nodules are present as well (see dominique images). At the time of the previous study in 2017 consolidations were present in both lower lobes as well as the right middle lobe which have cleared. MEDIASTINUM: Some small mediastinal lymph nodes are seen. Right hilar lymph nodes may be present but diagnosis is not possible without IV contrast. Heart size normal. Coronary calcification is present. CORONARY ARTERY CALCIFICATION: None visualized on this study. PLEURA: There is no pleural effusion. No pleural mass or thickening. AXILLA: No lymphadenopathy. UPPER ABDOMEN: 2.5 cm cyst is present in the right lobe of the liver seen on the prior chest CT from 2017 along with multiple other smaller hypodensities scattered throughout the liver many of which appear to measure water density. Left benign simple renal cysts are present which need no additional imaging or follow-up. Adrenal glands are unremarkable OSSEOUS STRUCTURES: Degenerative changes are present throughout the spine. No bony destructive lesions. CT/CT chest wo IV con IMPRESSION: 1. Multiple new pulmonary masses as described above. Differential diagnosis would include infectious etiologies as well as malignancy. PET/CT may be useful for further evaluation. 2. Other incidental findings described above. Fleischner guidelines were followed.
--- NOTE | 2023-04-30 14:01 | ECG_ITS ---
Test Reason : SHORTNESS OF BREATH Blood Pressure : / mmHG Vent. Rate : 078 BPM Atrial Rate : 078 BPM P-R Int : 186 ms QRS Dur : 084 ms QT Int : 426 ms P-R-T Axes : 041 020 089 degrees QTc Int : 485 ms Sinus rhythm with Premature atrial complexes Nonspecific T wave abnormality Prolonged QT Abnormal ECG When compared with ECG of 31-OCT-2017 11:36, Premature atrial complexes are now Present Nonspecific T wave abnormality now evident in Lateral leads Referred By: Yisel Luna Electronically Signed By:Uri Wagner
--- NOTE | 2023-04-30 14:02 | PC.NURSE ---
pt brought in by ems alert and oriented, vital signs within normal limits aside from being hypertensive, provider in the room doing assessment stating the patient needs xrays to make sure pneumonia is not forming, pt is in no apparent distress, daughter bedside with her, call merino placed within reach, will continue to monitor.
--- NOTE | 2023-04-30 14:05 | ED.GENADULT ---
HPI - General Adult General Chief complaint: Dyspnea Stated complaint: COPD SOB Time Seen by Provider: 04/30/23 13:53 Source: patient and family Mode of arrival: wheelchair Limitations: no limitations History of Present Illness HPI narrative: Patient comes to the emergency room via ambulance from home. Patient complaining of right-sided hip pain. Patient states that she did not fall. According to the patient's daughter who is at bedside, states that yesterday she noticed that the patient started limping, usually walks at baseline without a walker. Today, patient was unable to sit up due to right-sided hip pain. Also, patient's daughter states that she has noted that even ambulating with a walker, patient become short of breath, which has been happening for about a week now. Patient denies any chest pain or shortness of breath at this time. Patient states that she is coughing at baseline, denies significant sputum production, no fever or chills. EMS found the patient saturating at 90% on room air Related Data Home Medications Medication Instructions Recorded Confirmed cholecalciferol (vitamin D3) 25 25 mcg PO DAILY 03/20/21 03/26/23 mcg (1,000 unit) capsule alogliptin 25 mg tablet 25 mg PO DAILY 03/13/23 03/26/23 collagenase clostridium histo. 250 topical 04/30/23 unit/gram topical ointment (Santyl) Previous Rx's Medication Instructions Recorded albuterol sulfate 90 mcg/actuation 2 puff inhalation QID PRN 11/28/21 aerosol inhaler shortness of breath or wheezing 30 days #8.5 grams potassium chloride 10 mEq 10 meq PO Q OTHER DAY #42 tabs 07/30/22 tablet,extended release furosemide 20 mg tablet 20 mg PO DAILY #90 tabs 09/02/22 blood-glucose meter (OneTouch #1 ea 11/22/22 Ultra2 Meter kit) Breo Ellipta 200 mcg-25 mcg/dose See Rx Instructions .Route 12/18/22 powder for inhalation (fluticasone .COMPLEX #60 ea furoate-vilanterol) warfarin 2.5 mg tablet 2.5 mg PO DAILY #120 tabs 01/06/23 glipizide 5 mg tablet 10 mg PO BID 90 days #360 tabs 01/07/23 metformin 500 mg tablet,extended 500 mg PO BID 30 days #60 tabs 02/25/23 release 24hr lisinopril 20 1 tab PO DAILY #90 tabs 02/27/23 mg-hydrochlorothiazide 12.5 mg tablet lovastatin 40 mg tablet 40 mg PO DAILY #90 tabs 02/27/23 mupirocin 2 % topical ointment 1 appl topical BID 14 days #22 03/26/23 grams nystatin 100,000 unit/gram topical 1 appl topical TID 14 days #60 03/26/23 powder grams nadolol 40 mg tablet 40 mg PO DAILY #90 tabs 03/30/23 Allergies Allergy/AdvReac Type Severity Reaction Status Date / Time No Known Allergies Allergy Verified 04/30/23 13:36 [No Known Allergies*] Review of Systems Review of Systems: Constitutional : No Weight loss, No Fever, No Chills, No Night Sweats, No Fatigue, No Malaise ENT/Mouth : No Hearing loss, No Ear Pain, No Nasal Congestion, No Sinus Pain, No Hoarseness, No sore throat, No Rhinorrhea, No Swallowing Difficulty Eyes: No Eye Pain, No Swelling, No Redness, No Foreign Body, No Discharge, No Vision Changes Cardiovascular : No Chest Pain, orthopnea, no palpitations, shortness of breath with ambulation Respiratory : Dry cough at baseline, chronic wheezing, shortness of breath with ambulation Gastrointestinal : No Nausea, No Vomiting, No Diarrhea, No Constipation, No abdominal Pain, No Hematochezia, No Melena Genitourinary : no irregular bleeding, No Dysuria, No Urinary Frequency, No Hematuria, No Urinary Incontinence, No Urgency, No Flank Pain, No Urinary Flow Changes, No Hesitancy Musculoskeletal : No joint pain, No Myalgias, No Joint Swelling Skin : No Skin Lesions, No rash Neuro : No Weakness, No Numbness, No Paresthesias, No Loss of Consciousness, No Dizziness, No Headache Psych : No Anxiety/Panic, No Depression, No SI/HI/AH/VH, No Social Issues, Heme/Lymph: No Bruising, No Bleeding,No Lymphadenopathy Endocrine : No Polyuria, No Polydipsia, No Temperature Intolerance [facility] Past Medical History Medical History Benign essential hypertension Cerebellar hemorrhage COPD (chronic obstructive pulmonary disease) Diabetes mellitus Non-rheumatic aortic stenosis Obesity (BMI 30-39.9) Paroxysmal atrial flutter Pure hypercholesterolemia Restrictive lung disease Surgical History No significant past surgical history Family History Family History Other Family history non-contributory Social History Social History Housing: House Alcohol intake: never Patient Tobacco Use Status: Former Tobacco user Quit Date: 3+ yrs ago Smoked in Last 30 Days: No e-Cigarette/Vaping Use: Never Used Second Hand Smoke Exposure: Yes Use of substances other than those prescribed or required for medical reasons: No Advance Directives: No service: No Current occupational status: retired Cognitive needs: Yes (walker) Hearing needs: No Vision needs: Yes (glasses) Physical Exam ED Vital Signs: Vital Signs - 24 hr 04/30/23 13:37 04/30/23 13:54 04/30/23 16:08 Temperature 97.6 F 98.2 F Pulse Rate 82 70 66 Respiratory Rate 22 H 16 24 H Blood Pressure 154/108 H 91/43 L Pulse Oximetry 94 86 L 88 L Oxygen Delivery Method Room Air Room Air Room Air BMI result Body Mass Index 35.3 Const Other: Appearance: Alert. Oriented X3. No acute distress. Eyes: Pupils equal, round and reactive to light. ENT: Pharynx normal. Neck: Normal inspection. Neck supple. No lymph nodes noted. No crepitus CVS: Normal heart rate and rhythm. Pulses normal. Normal S1 and S2 Respiratory: No respiratory distress. Bilateral crackles and rales, no wheezing Abdomen: Soft and nontender. No rigidity. No distention. Skin: Skin warm and dry. Normal skin color. Normal skin turgor. Extremities: No lower extremity edema. No Lacerations. No Rash. Pain to palpation over the left side of the hip, patient able to flex and extend the hip. Neuro: Oriented X 3. No motor deficit. No sensory deficit. Moving all extremities. No slurred speech. CN 2 through 12 grossly intact Psych: calm, cooperative, normal affect Course Course Course Narrative: -patient's oxygen saturation drops to 86%. Patient was started on 2 L O2 Medical Decision Making Medical Decision Making [facility] Narrative: -patient has acute kidney injury, fluids were starting slow, patient has CHF, no need for bolus of 30 mL/kilograms at this time, patient is not septic -my interpretation of chest x-ray shows bilateral pneumonia, started on azithromycin and ceftriaxone IV -INR is elevated, 6.0 -I discussed the patient with Dr. Rick, patient being admitted Admission/Observation Consideration of admission/observation: Escalation of care including admission/observation considered Consult Healthcare Provider Management of the patient was discussed with: Hospitalist Lab Data [facility] Lab Attestation statement: I reviewed the patient's lab results. 04/30/23 14:40 04/30/23 14:40 Labs: Lab Results 04/30/23 04/30/23 04/30/23 Range/Units 14:40 14:40 14:40 WBC 23.3 H (4.8-10.8) X10*3/uL RBC 4.12 L (4.20-5.50) X10*6/uL Hgb 10.7 L (12.0-16.0) g/dl Hct 35.1 L (37.0-47.0) % MCV 85.2 (80.0-98.0) fL MCH 26.0 L (27.0-33.0) pg MCHC 30.5 L (31.0-35.0) g/dl RDW 15.8 (11.0-16.0) % Plt Count 493 H (160-400) X10*3/uL MPV 9.9 (9.4-12.3) fL Immature Gran % (Auto) 0.9 H (0.0-0.4) % Neut % (Auto) 86.1 H (45-73) % Lymph % (Auto) 6.9 L (20-40) % [place] % (Auto) 5.6 (2-11) % Eos % (Auto) 0.2 (0-4) % Baso % (Auto) 0.3 (0-2) % Lymph # (Auto) 1.6 (1.2-4.9) X10*3/uL [place] # (Auto) 1.3 H (0.1-1.2) X10*3/uL Eos # (Auto) 0.0 (0.0-0.4) X10*3/uL Baso # (Auto) 0.1 (0.0-0.2) X10*3/uL Abs Immat Gran (auto) 0.21 H (0.00-0.03) X10*3/uL Absolute Neuts (auto) 20.1 H (2.0-8.3) x10*3/uL Absolute Nucleated RBC 0.000 (0.0-0.012) X10*3/uL Nucleated RBC % (auto) 0.0 (0.0-0.2) /100WBC Smear Tech's Comments VERIFIED PT 74.4 H (10.0-13.1) SEC INR 6.0 H* D (0.9-1.1) VBG pH (7.32-7.43) VBG pCO2 mmHg VBG pO2 mmHg VBG HCO3 (22-26) mmol/L VBG O2 Saturation % VBG Base Excess mmol/L Sodium 140 (135-145) mmol/L Potassium 3.9 (3.3-5.1) mmol/L Chloride 101 (96-108) mmol/L Carbon Dioxide 27 (22-29) mmol/L Anion Gap 16 (12-20) BUN 50 H (9-16) mg/dL Creatinine 1.50 H (0.5-1.4) mg/dL Estim Creat Clear Calc 30.2 Estimated GFR 33 Random Glucose 139 H (60-115) mg/dL Lactic Acid (0.5-2.0) mmol/L Calcium 10.3 H D (8.4-10.2) mg/dL Total Bilirubin 0.9 (0.0-1.0) mg/dL Direct Bilirubin 0.5 (0.0-0.5) mg/dL AST 37 H (5-31) U/L ALT 17 (0-31) U/L Alkaline Phosphatase 379 H (39-117) U/L Troponin I High Sens (<3.5-17.0) ng/L B-Natriuretic Peptide (<100) pg/mL Total Protein 6.5 (6.5-8.0) g/dL Albumin 2.8 L (3.5-5.0) g/dL COVID-19 (ANEESH) (Negative) COVID-19 Clin Com 04/30/23 04/30/23 04/30/23 Range/Units 14:40 14:40 14:40 WBC (4.8-10.8) X10*3/uL RBC (4.20-5.50) X10*6/uL Hgb (12.0-16.0) g/dl Hct (37.0-47.0) % MCV (80.0-98.0) fL MCH (27.0-33.0) pg MCHC (31.0-35.0) g/dl RDW (11.0-16.0) % Plt Count (160-400) X10*3/uL MPV (9.4-12.3) fL Immature Gran % (Auto) (0.0-0.4) % Neut % (Auto) (45-73) % Lymph % (Auto) (20-40) % [place] % (Auto) (2-11) % Eos % (Auto) (0-4) % Baso % (Auto) (0-2) % Lymph # (Auto) (1.2-4.9) X10*3/uL [place] # (Auto) (0.1-1.2) X10*3/uL Eos # (Auto) (0.0-0.4) X10*3/uL Baso # (Auto) (0.0-0.2) X10*3/uL Abs Immat Gran (auto) (0.00-0.03) X10*3/uL Absolute Neuts (auto) (2.0-8.3) x10*3/uL Absolute Nucleated RBC (0.0-0.012) X10*3/uL Nucleated RBC % (auto) (0.0-0.2) /100WBC Smear Tech's Comments PT (10.0-13.1) SEC INR (0.9-1.1) VBG pH (7.32-7.43) VBG pCO2 mmHg VBG pO2 mmHg VBG HCO3 (22-26) mmol/L VBG O2 Saturation % VBG Base Excess mmol/L Sodium (135-145) mmol/L Potassium (3.3-5.1) mmol/L Chloride (96-108) mmol/L Carbon Dioxide (22-29) mmol/L Anion Gap (12-20) BUN (9-16) mg/dL Creatinine (0.5-1.4) mg/dL Estim Creat Clear Calc Estimated GFR Random Glucose (60-115) mg/dL Lactic Acid 2.0 (0.5-2.0) mmol/L Calcium (8.4-10.2) mg/dL Total Bilirubin (0.0-1.0) mg/dL Direct Bilirubin (0.0-0.5) mg/dL AST (5-31) U/L ALT (0-31) U/L Alkaline Phosphatase (39-117) U/L Troponin I High Sens 11.2 (<3.5-17.0) ng/L B-Natriuretic Peptide 107 H (<100) pg/mL Total Protein (6.5-8.0) g/dL Albumin (3.5-5.0) g/dL COVID-19 (ANEEHS) (Negative) COVID-19 Clin Com 04/30/23 04/30/23 Range/Units 14:40 14:49 WBC (4.8-10.8) X10*3/uL RBC (4.20-5.50) X10*6/uL Hgb (12.0-16.0) g/dl Hct (37.0-47.0) % MCV (80.0-98.0) fL MCH (27.0-33.0) pg MCHC (31.0-35.0) g/dl RDW (11.0-16.0) % Plt Count (160-400) X10*3/uL MPV (9.4-12.3) fL Immature Gran % (Auto) (0.0-0.4) % Neut % (Auto) (45-73) % Lymph % (Auto) (20-40) % [place] % (Auto) (2-11) % Eos % (Auto) (0-4) % Baso % (Auto) (0-2) % Lymph # (Auto) (1.2-4.9) X10*3/uL [place] # (Auto) (0.1-1.2) X10*3/uL Eos # (Auto) (0.0-0.4) X10*3/uL Baso # (Auto) (0.0-0.2) X10*3/uL Abs Immat Gran (auto) (0.00-0.03) X10*3/uL Absolute Neuts (auto) (2.0-8.3) x10*3/uL Absolute Nucleated RBC (0.0-0.012) X10*3/uL Nucleated RBC % (auto) (0.0-0.2) /100WBC Smear Tech's Comments PT (10.0-13.1) SEC INR (0.9-1.1) VBG pH 7.48 H (7.32-7.43) VBG pCO2 39 mmHg VBG pO2 46 mmHg VBG HCO3 30 H (22-26) mmol/L VBG O2 Saturation 74.0 % VBG Base Excess 6.6 mmol/L Sodium (135-145) mmol/L Potassium (3.3-5.1) mmol/L Chloride (96-108) mmol/L Carbon Dioxide (22-29) mmol/L Anion Gap (12-20) BUN (9-16) mg/dL Creatinine (0.5-1.4) mg/dL Estim Creat Clear Calc Estimated GFR Random Glucose (60-115) mg/dL Lactic Acid (0.5-2.0) mmol/L Calcium (8.4-10.2) mg/dL Total Bilirubin (0.0-1.0) mg/dL Direct Bilirubin (0.0-0.5) mg/dL AST (5-31) U/L ALT (0-31) U/L Alkaline Phosphatase (39-117) U/L Troponin I High Sens (<3.5-17.0) ng/L B-Natriuretic Peptide (<100) pg/mL Total Protein (6.5-8.0) g/dL Albumin (3.5-5.0) g/dL COVID-19 (ANEESH) Negative (Negative) COVID-19 Clin Com See Note Independent Interpretation I performed an independent interpretation of an: Plain X-Ray Radiology Impression Discussion of test interpretation with radiology: I have reviewed the radiologist's reading. Radiologist Impression: Rotated positioning. Lordotic view. There is borderline prominence of the cardiac silhouette, likely related to positioning/technique. Calcification of the aortic arch. Focus of hazy opacity right upper lung, right lower lung, in the left midlung, new from previous. This raises a possibility of infiltrates. Streaky opacities in bilateral lung apices, stable from previous. No pleural effusion. No pulmonary edema. No pneumothorax. XR/XR chest 1V IMPRESSION: Multifocal hazy opacities in bilateral lungs, raises the possibility of infiltrates from inflammatory/infectious process. Hip x-ray: FINDINGS: Mild left hip arthritis, joint space loss. The femur is externally rotated in positioning. On the frontal radiographs, no discrete fracture is seen in the proximal left femur. However, evaluation is incomplete/limited, with the proximal femur including the femoral head, neck and intertrochanteric region is not well visualized on the crosstable views due to overlapping soft tissue structures. The more distal aspect of the visualized femur appears intact. There is vascular calcification present. On the pelvic view, there is mild right hip arthritis. Moderate symphysis pubis degeneration. Bilateral SI joint arthritis. Spondylosis in the visualized lower lumbar spine. No acute pelvic fractures identified. Prominent vascular calcification. XR/XR hip LT w PEL1V IMPRESSION: *Left hip arthritis. *Limited incomplete evaluation for left hip fracture, the provided views. On the frontal radiographs, no definite fracture is evident. Clinically correlate. Further evaluation with repeat radiographs or cross-sectional imaging as clinically warranted. *Mild right hip arthritis. *Additional arthritis as detailed above. Critical Care Time Critical Care Time Critical Care Time: Yes Total Critical Care Time: 60 Attestation: I have personally provided critical care time. Time includes review of lab data, radiology results, discussion with consultants, and monitoring for potential decompensation. Intervention performed as documented. Discharge Plan Discharge Clinical Impression: Pneumonia, BEENA (acute kidney injury), Supratherapeutic INR Patient Disposition: Admitted As Inpatient Prescriptions: No Action blood sugar diagnostic [OneTouch Ultra Blue Test Strip] Strip 1 strip miscellaneous BID Qty: 100 3RF potassium chloride 10 mEq tablet extended release 10 meq PO Q OTHER DAY Qty: 42 2RF furosemide 20 mg tablet 20 mg PO DAILY Qty: 90 2RF Breo Ellipta 200-25 mcg/dose blister with device See Rx Instructions .ROUTE .COMPLEX Qty: 60 4RF Dose Instruction: TAKE 1 PUFF BY MOUTH EVERY DAY Rx Instructions: TAKE 1 PUFF BY MOUTH EVERY DAY warfarin 2.5 mg tablet 2.5 mg PO DAILY Qty: 120 3RF Hold Instructions: Doctor's Order Protocol: Dose Management Condition: Saturday (Week One) Dose/Route: 2.5 mg Instruction: 1 x 2.5 mg tablet Condition: Saturday Dose/Route: 2.5 mg Instruction: 1 x 2.5 mg tablet Condition: Saturday Dose/Route: 2.5 mg Instruction: 1 x 2.5 mg tablet Condition: Saturday Dose/Route: 2.5 mg Instruction: 1 x 2.5 mg tablet Condition: Dose/Route: 0 mg Instruction: 0 tablets Condition: Saturday Dose/Route: 2.5 mg Instruction: 1 x 2.5 mg tablet Condition: Saturday Dose/Route: 2.5 mg Instruction: 1 x 2.5 mg tablet Condition: Saturday (Week Two) Dose/Route: 2.5 mg Instruction: 1 x 2.5 mg tablet Condition: Saturday Dose/Route: 2.5 mg Instruction: 1 x 2.5 mg tablet Condition: Saturday Dose/Route: 2.5 mg Instruction: 1 x 2.5 mg tablet Condition: Saturday Dose/Route: 2.5 mg Instruction: 1 x 2.5 mg tablet Condition: Dose/Route: 2.5 mg Instruction: 1 x 2.5 mg tablet Condition: Saturday Dose/Route: 2.5 mg Instruction: 1 x 2.5 mg tablet Condition: Saturday Dose/Route: 2.5 mg Instruction: 1 x 2.5 mg tablet Protocol Text: Adjustment Start Date: Saturday04/24/23 INR Value: 3.5 INR Date: 04/24/23 Recheck Date: 05/01/23 glipizide 5 mg tablet 10 mg PO BID 90 Days Qty: 360 1RF lisinopril-hydrochlorothiazide 20-12.5 mg tablet 1 tab PO DAILY Qty: 90 1RF lovastatin 40 mg tablet 40 mg PO DAILY Qty: 90 3RF Hold Instructions: PT STATED [facility] STOPPED IT nadolol 40 mg tablet 40 mg PO DAILY Qty: 90 0RF cholecalciferol (vitamin D3) 25 mcg (1,000 unit) capsule 25 mcg PO DAILY (DME) blood-glucose meter [VetrTouch Ultra2 Meter] Kit See Rx Instructions .Route Qty: 1 0RF Rx Instructions: As directed lancets [OneTouch Delica Plus Lancet] 30 gauge misc See Rx Instructions .ROUTE BID Qty: 100 0RF Rx Instructions: 30 guage 2 times a day; nystatin 100,000 unit/gram powder 1 appl topical TID 14 Days Qty: 60 0RF mupirocin 2 % ointment 1 appl topical BID 14 Days Qty: 22 0RF metformin 500 mg tablet extended release 24hr 500 mg PO BID 30 Days Qty: 60 3RF albuterol sulfate 90 mcg/actuation HFA aerosol inhaler 2 puff inhalation QID PRN (Reason: shortness of breath or wheezing) 30 Days Qty: 8.5 5RF alogliptin 25 mg tablet 25 mg PO DAILY
[2023-04-30 14:53] LABS: Basophils Absolute Auto 0.1 X10*3/uL (0.0-0.2); Basophils Percent Auto 0.3 % (0-2); Eosinophils Percent Auto 0.2 % (0-4); Hematocrit 35.1 % (37.0-47.0); Hemoglobin 10.7 g/dl (12.0-16.0); Imm Gran Abs Auto 0.21 X10*3/uL (0.00-0.03); Imm Gran Pct Auto 0.9 % (0.0-0.4); Lymphocytes Absolute Auto 1.6 X10*3/uL (1.2-4.9); Lymphocytes Percent Auto 6.9 % (20-40); MANUAL DIFF FLAG SCAN; Mean Corpuscular HGB Conc 30.5 g/dl (31.0-35.0); Mean Corpuscular Volume 85.2 fL (80.0-98.0); Mean Platelet Volume 9.9 fL (9.4-12.3); Monocytes Absolute Auto 1.3 X10*3/uL (0.1-1.2); Monocytes Percent Auto 5.6 % (2-11); Neutrophils Absolute Auto 20.1 x10*3/uL (2.0-8.3); Neutrophils Percent Auto 86.1 % (45-73); Platelet Count 493 X10*3/uL (160-400); Red Blood Count 4.12 X10*6/uL (4.20-5.50); Red Cell Distribution Width 15.8 % (11.0-16.0); SCAN SMEAR FLAG 1; White Blood Count 23.3 X10*3/uL (4.8-10.8)
[2023-04-30 14:56] LABS: VBG Base Excess 6.6 mmol/L; VBG HCO3 30 mmol/L (22-26); VBG pCO2 39 mmHg; VBG pH 7.48 (7.32-7.43); VBG pO2 46 mmHg
[2023-04-30 14:59] LABS: Venous Blood Gas Refer to POC result
[2023-04-30 15:06] LABS: Prothrombin Time 74.4 SEC (10.0-13.1)
[2023-04-30 15:10] LABS: COVID-19 Test Negative (Negative); IDNOW Serial# 9DB6401D
[2023-04-30 15:11] LABS: Alanine Aminotransferase 17 U/L (0-31); Albumin Level 2.8 g/dL (3.5-5.0); Alkaline Phosphatase 379 U/L (39-117); Anion Gap 16 (12-20); Aspartate Amino Transferase 37 U/L (5-31); Bilirubin Direct 0.5 mg/dL (0.0-0.5); Bilirubin Total 0.9 mg/dL (0.0-1.0); Blood Urea Nitrogen 50 mg/dL (9-16); Calcium 10.3 mg/dL (8.4-10.2); Carbon Dioxide 27 mmol/L (22-29); Chloride 101 mmol/L (96-108); Creatinine Clr Calc Pharmacy 30.2; Estimated Glomerular Filt Rate 33; Glucose Random 139 mg/dL (60-115); Potassium 3.9 mmol/L (3.3-5.1); Sodium 140 mmol/L (135-145); Total Protein 6.5 g/dL (6.5-8.0)
[2023-04-30 15:14] LABS: Troponin-I High Sensitivity 11.2 ng/L (<3.5-17.0)
[2023-04-30 15:15] LABS: B Type Natriuretic Peptide 107 pg/mL (<100)
[2023-04-30 15:17] LABS: SLIDE REVIEW VERIFIED
--- NOTE | 2023-04-30 16:32 | P.HPHOSP_ITS ---
History of Present Illness Date of Service: 04/30/23 Attending physician on admission: Ronel Benitez Chief Complaint: Left hip pain Pt is a 83-year-old female with a PMH significant for?non insulin-dependent diabetes 2, HTN, HLD, AFib on warfarin, COPD, and HFpEF who presents to the ED with a chief complaint of left hip pain but with multiple other complaints. Patient is unsure of any precipitating cause of hip pain: Denies any recent fall or trauma to the area. Thinks it may have occurred one week prior when she required assistance getting out of her recliner and her family pulled her out of her chair. Patient's daughter notes, however, that her mother only began complaining of pain yesterday. Pt apparently was able to ambulate on her own up until 2-3 weeks ago when she began getting getting extremely short of breath with only a few steps. Has had a chronic cough for years, but worse lately. Pt with COPD but not on home O2. Pt's daughter also notes that a little over two weeks ago pt developed a blister under her left breast that eventually popped and formed an open wound. Pt has had 3 wound care clinic visits so far with a fourth scheduled for tomorrow. Pt denies chest pain/pressure, palpitations. No fever, chills, nausea, vomiting, diarrhea, abdominal pain. D enies lightheadedness, dizziness, headache. In the ED patient was afebrile, but tachypneic up to 24, and hypotensive and satting at 86% O2 on RA. Labs were significant for leukocytosis of 23.3, H&H of 10.7/35.1, platelets 493, Pt 74.4, INR 6.0, BUN 50, creatinine 1.5, AST 37, alk- phos 379, BNP slightly elevated of 107, albumin 2.8. UA pending. CXR showed multifocal hazy opacities in bilateral lungs, possibility of infiltrates from inflammatory versus infectious process. Left hip and pelvis x-ray was limited incomplete evaluation of left hip fracture, on frontal radiographs note definite fracture is evident. EKG demonstrated sinus rhythm with PACs with prolonged QTc 485. Pt was treated with IVF, ceftriaxone, and azithromycin. Pt will be admitted to the hospital for treatment and further evaluation of BEENA and acute hypoxic respiratory failure in the setting of community-acquired pneumonia. Review of Systems Review of Systems: Left hip pain Worsening shortness of breath and cough Decreased ambulation Open wound under left breast Denies chest pain/pressure, palpitations No lightheadedness, dizziness Yes all other systems are reviewed and are negative [facility] Medical History Benign essential hypertension Cerebellar hemorrhage COPD (chronic obstructive pulmonary disease) Diabetes mellitus Non-rheumatic aortic stenosis Obesity (BMI 30-39.9) Paroxysmal atrial flutter Pure hypercholesterolemia Restrictive lung disease Family History Other Family history non-contributory Surgical History No significant past surgical history Social History Housing: House Alcohol intake: never Patient Tobacco Use Status: Former Tobacco user Quit Date: 3+ yrs ago Smoked in Last 30 Days: No e-Cigarette/Vaping Use: Never Used Second Hand Smoke Exposure: Yes Use of substances other than those prescribed or required for medical reasons: No Advance Directives: No service: No Current occupational status: retired Cognitive needs: Yes (walker) Hearing needs: No Vision needs: Yes (glasses) Meds Allergies Allergy/AdvReac Type Severity Reaction Status Date / Time No Known Allergies Allergy Verified 04/30/23 13:36 [No Known Allergies*] Active Medications: Current Medications Azithromycin 500 mg/ Sodium (Chloride) 250 mls @ 125 mls/hr IV ONCE ONE Stop: 04/30/23 17:45 Sodium Chloride (Ns) 1,000 mls @ 200 mls/hr IVCONT .Q5H ONE Stop: 04/30/23 20:46 Pharmacy Consult (Consult Rx Perform Med Rec) 1 each MISCELLANE ONCE PRN PRN Reason: Consult order Home Medications Medication Instructions Recorded Confirmed Last Taken Type alogliptin 25 mg tablet 25 mg PO DAILY 03/13/23 04/30/23 04/30/23 History collagenase clostridium histo. 250 1 appl topical DAILY 04/30/23 04/30/23 Unknown History unit/gram topical ointment (Santyl) fluticasone furoate 200 1 inh inhalation BID 04/30/23 04/30/23 Unknown History mcg-vilanterol 25 mcg/dose inhalation powder (Breo Ellipta) furosemide 20 mg tablet 20 mg PO DAILY PRN Edema 04/30/23 04/30/23 Unknown History warfarin 2.5 mg tablet 2.5 mg PO DAILY@1800 04/30/23 04/30/23 Unknown History Physical Exam Vital Signs and Narrative: Vital Signs: Last Vital Signs Temp 98.2 F 04/30/23 16:08 Pulse 66 04/30/23 16:08 Resp 24 H 04/30/23 16:08 BP 91/43 L 04/30/23 16:08 Pulse Ox 88 L 04/30/23 16:08 O2 Del Method Room Air 04/30/23 16:08 BMI result Body Mass Index 35.3 Constitutional: Alert, in no acute distress. Mental Status: Oriented to person, place and time. Eyes: Pupils are equal, round, and reactive to light. Ear, Nose, and Throat: Oropharynx clear, mucous membranes moist. Ears and nose without deformities. Trachea midline. Respiratory: Diffuse rales and crackles bilaterally. Cardiovascular: S1, S2 regular. No murmurs, rubs, or gallops. Gastrointestinal: Abdomen soft, non-tender, non-distended. Normal bowel sounds. Neurologic: Cranial nerves II-XII are grossly intact bilaterally. No focal neurological deficits. Moves all extremities spontaneously. Skin: Open wound under left breast. Clean margins, non-draining, non- erythematous, no signs of infection. See pictures below. Musculoskeletal: Reduced 1/5 strength of lower extremities bilaterally. Passive ROM of left hip intact, non-painful. Mild tenderness to palpation of left hip. Extremities: No edema. Psychiatric: Normal mood and affect. Results Labs 04/30/23 14:40 04/30/23 14:40 Labs: Laboratory Results - last 24 hr 04/30/23 04/30/23 04/30/23 14:40 14:40 14:40 MCV 85.2 MCH 26.0 L MCHC 30.5 L RDW 15.8 Plt Count 493 H MPV 9.9 Immature Gran % (Auto) 0.9 H Neut % (Auto) 86.1 H Lymph % (Auto) 6.9 L Union % (Auto) 5.6 Eos % (Auto) 0.2 Baso % (Auto) 0.3 Lymph # (Auto) 1.6 Union # (Auto) 1.3 H Eos # (Auto) 0.0 Baso # (Auto) 0.1 Abs Immat Gran (auto) 0.21 H Absolute Neuts (auto) 20.1 H Absolute Nucleated RBC 0.000 Nucleated RBC % (auto) 0.0 Smear Tech's Comments VERIFIED PT 74.4 H INR 6.0 H* D VBG pH VBG pCO2 VBG pO2 VBG HCO3 VBG O2 Saturation VBG Base Excess Anion Gap 16 Estim Creat Clear Calc 30.2 Estimated GFR 33 Random Glucose 139 H Lactic Acid Calcium 10.3 H D Total Bilirubin 0.9 Direct Bilirubin 0.5 AST 37 H ALT 17 Alkaline Phosphatase 379 H Troponin I High Sens B-Natriuretic Peptide Total Protein 6.5 Albumin 2.8 L COVID-19 (ANEESH) [employer] 04/30/23 04/30/23 04/30/23 14:40 14:40 14:40 MCV MCH MCHC RDW Plt Count MPV Immature Gran % (Auto) Neut % (Auto) Lymph % (Auto) Union % (Auto) Eos % (Auto) Baso % (Auto) Lymph # (Auto) Union # (Auto) Eos # (Auto) Baso # (Auto) Abs Immat Gran (auto) Absolute Neuts (auto) Absolute Nucleated RBC Nucleated RBC % (auto) Smear Tech's Comments PT INR VBG pH VBG pCO2 VBG pO2 VBG HCO3 VBG O2 Saturation VBG Base Excess Anion Gap Estim Creat Clear Calc Estimated GFR Random Glucose Lactic Acid 2.0 Calcium Total Bilirubin Direct Bilirubin AST ALT Alkaline Phosphatase Troponin I High Sens 11.2 B-Natriuretic Peptide 107 H Total Protein Albumin COVID-19 (ANEESH) [employer] 04/30/23 04/30/23 14:40 14:49 MCV MCH MCHC RDW Plt Count MPV Immature Gran % (Auto) Neut % (Auto) Lymph % (Auto) Union % (Auto) Eos % (Auto) Baso % (Auto) Lymph # (Auto) Union # (Auto) Eos # (Auto) Baso # (Auto) Abs Immat Gran (auto) Absolute Neuts (auto) Absolute Nucleated RBC Nucleated RBC % (auto) Smear Tech's Comments PT INR VBG pH 7.48 H VBG pCO2 39 VBG pO2 46 VBG HCO3 30 H VBG O2 Saturation 74.0 VBG Base Excess 6.6 Anion Gap Estim Creat Clear Calc Estimated GFR Random Glucose Lactic Acid Calcium Total Bilirubin Direct Bilirubin AST ALT Alkaline Phosphatase Troponin I High Sens B-Natriuretic Peptide Total Protein Albumin COVID-19 (ANEESH) Negative COVID-19 Clin Com See Note Imaging Radiologist's Impressions: Impressions Chest X-Ray 04/30/23 15:27 IMPRESSION: Multifocal hazy opacities in bilateral lungs, raises the possibility of infiltrates from inflammatory/infectious process. Hip/Pelvis X-Ray 04/30/23 15:27 IMPRESSION: *Left hip arthritis. *Limited incomplete evaluation for left hip fracture, the provided views. On the frontal radiographs, no definite fracture is evident. Clinically correlate. Further evaluation with repeat radiographs or cross-sectional imaging as clinically warranted. *Mild right hip arthritis. *Additional arthritis as detailed above. Assessment and Plan (1) Pneumonia: Status: Acute (2) BEENA (acute kidney injury): Status: Acute (3) Supratherapeutic INR: Status: Acute (4) Wound of skin: Status: Acute Plan Pt is a 83-year-old female with a PMH significant for?non insulin-dependent diabetes 2, HTN, HLD, AFib on warfarin, COPD, and HFpEF who presents to the ED with a chief complaint of left hip pain but with multiple other complaints. Pt will be admitted to the hospital for treatment and further evaluation of BEENA and acute hypoxic respiratory failure in the setting of community-acquired pneumoni a. Acute hypoxic respiratory failure in the setting community-acquired pneumonia Patient setting as low as 86% O2 on RA, patient not on home O2 Patient with worsening cough and shortness of breath recently, leukocytosis of 23.3, CXR concerning for multi focal hazy opacities in bilateral lungs, lungs with diffuse rales and crackles Will get CT of chest Ceftriaxone, azithromycin, started 04/30/2023 Titrate supplemental O2>92, wean as tolerated Pt does not meet sepsis criteria BEENA Patient's creatinine 1.50 at time of admission, up from previous of 0.8 Pt received IVF in ED Will give another 500 mls bolus Follow BMP Left breast wound Patient has an open wound under her left breast that initially began as a ?blister? that ?popped? 2 weeks ago Patient has been to Wound Care Clinic for 3 visits, next visit was set for tomorrow Wound with clear, rolled margins. No signs of acute infection or abscess Will get ultrasound of left breast to r/o abscess, mass Has been applying Santyl ointment, packing wound, and covering with gauze, continue for now General surgery consult Left hip pain Patient denies recent fall or trauma to the area Frontal left hip x-ray with no evidence for definite fracture Mild tenderness to palpation of left hip, no pain elicited with passive ROM or r eduction in range of motion Most likely secondary to musculoskeletal strain Acetaminophen for pain PT evaluation Elevated INR INR supratherapeutic at 6.0 Hold warfarin A repeat INR Normocytic anemia Patient with new onset normocytic anemia of 10.7/35.1, MCV of 85.2, down from H&H on 11/12/2022 of 14.1/44.2 No obvious signs of active bleeding Will check iron studies, B12, folate, stool for occult blood Hypotension Patient was hypotensive as low as 84/35 Patient given 500 mL bolus of normal saline Given albumin 25% x2 Monitor on telemetry Follow BP closely HFpEF Does not appear to be in acute exacerbation Receiving gentle IV resuscitation Hold furosemide d/t hypotension Paroxysmal AFib Hold Coumadin due to elevated INR Hold nadolol due to hypotension Monitor on telemetry Full Code Attending:?Dr. Rick DVT Prophylaxis: On Warfarin Pt will require a hospitalization of at least two nights for treatment of?acute hypoxic respiratory failure in the setting of community-acquired pneumonia and BEENA. Time Spent With Patient Time: Total time managing care of this patient today ____ minutes. Quality Stroke Does the patient have a stroke diagnosis?: No VTE Prior VTE?: No VTE Risk Level:: Medical - moderate - high VTE Device Contraindication: Treatment Not Indicated VTE Drug Contraindication: N/A - Med Ordered
[2023-04-30] MEDS: 0.9 % Sodium Chloride 1,000 ML 200 ML IVCONT (16:52)
[2023-04-30] MEDS: cefTRIAXone sodium 1 GM in 0.9 % Sodium Chloride 50 ML IV (16:53)
--- NOTE | 2023-04-30 16:55 | PC.NURSE ---
pt alert and oriented, NS and abx administered per provider order, call merino placed within reach, will continue to monitor.
--- NOTE | 2023-04-30 17:41 | PHA.MEDREC ---
Addendum entered by Aung Jean-Baptiste [facility] 05/01/23 14:50: got a call from RN, who had an updated list from [place]. Seems daughter was incorrect on most medications. [facility] list from 04/18. Here is a summary of updates: - Potassium qod to qd -warfarin 2.5 daily to 1.25 daily - lisinopril 20/12.5 to 10/12.5 -lovastatin 40 added of note, rx for breo says qd, list says BID. MEDICATION CAN ONLY BE DOSED ONCE DAILY MARC Original Note: Pharmacy Consult ? Medication Reconciliation Pharmacy has completed the medication reconciliation. Pt's daughter at bedside with list, however the list seemed incomplete/outdated. Asked the patient specifically about medications but she seemed confused. Used a combination of pt history and claim history to complete med rec. Daughter was sure about medications on list even though some have not been filled since November.
[2023-04-30] MEDS: Azithromycin 500 MG in 0.9 % Sodium Chloride 250 ML 125 MG IV (18:02)
--- NOTE | 2023-04-30 18:47 | PC.NURSE ---
patient continues to be alert & oriented x2, family at bedside, pt is now hypotensive- provider was notified however, patient is currently not complaining of dizziness or symptomatic of the hypotension, ivf continue to run, iv antibiotics running per order, call merino within reach, will continue to monitor.
[2023-04-30] MEDS: Albumin Human 25 % 100 ML IV ×2 (19:42→22:23)
[2023-04-30] MEDS: 0.9 % Sodium Chloride 500 ML IV (19:43)
[2023-04-30 21:05] LABS: Iron 11 mcg/dL (30-160); Percent Iron Saturation 8 % (15-50); Total Iron Binding Capacity 130 mcg/dL (228-428); Unsaturated Iron Binding 119 ug/dL
[2023-04-30 21:46] LABS: Folate 7.3 ng/mL (> or = 4.0); Vitamin B12 962 pg/mL (200-900)
--- NOTE | 2023-04-30 22:14 | PC.NURSE ---
Wound noted to under left breast. Per family at bedside, pt has been going to Wound Care for treatment. Pictures of wound sent to MD Sheldon through [facility] to be added into chart,
[2023-04-30 22:49] LABS: Appearance Urine Turbid; Color Urine Dark Yellow; Glucose Urine UA Negative (Negative); Leukocyte Esterase Urine Large (3+) (Negative); Nitrite Urine Positive (Negative); UMIC TRIGGER UACC YES; Urine Blood Large (3+) (Negative); Urine Ketones Trace mg/dL (Negative); Urine Protein 100 (2+) mg/dL (Neg-Trace)
[2023-04-30 23:10] LABS: Bacteria Urine 4+ (None Seen); Hyaline Casts Urine 0-2 /LPF (0-2); UACC Culture Trigger YES; WBC Urine >50 /HPF (0-5)
[2023-05-01] VITALS (7 sets, daily range): BP systolic 80–103; BP diastolic 50–68; PULSE 70–85; RESP 16–20; TEMP 36.6–37; O2SAT 91–96; BMI 35.6
--- NOTE | 2023-05-01 00:27 | PC.NURSE ---
patient in the process of being admitted patient report was given to the receiving nurse Jeanne patient will monitored safety
[2023-05-01] MEDS: 0.9 % Sodium Chloride Flush 3 ML SYRINGE IVFLUSH ×4 (01:44→21:13)
[2023-05-01] MEDS: Midodrine HCl 5 MG TABLET PO (01:44)
--- NOTE | 2023-05-01 06:28 | PM.EVENT ---
Event Note Date of Service: 05/01/23 Event Note: Patient was noted to have hypotension in the ED. Patient received 3 L total of IV fluids plus albumin infusion. Patient also received 5 mg of midodrine with improvement of BP. She is asymptomatic, completely awake alert on has no acute complaints. Time Spent With Patient Time: Total time managing care of this patient today ____ minutes.
[2023-05-01 06:45] LABS: Hematocrit 29.1 % (37.0-47.0); Hemoglobin 8.9 g/dl (12.0-16.0); Mean Corpuscular HGB Conc 30.6 g/dl (31.0-35.0); Mean Corpuscular Hemoglobin 25.9 pg (27.0-33.0); Mean Corpuscular Volume 84.8 fL (80.0-98.0); Mean Platelet Volume 9.7 fL (9.4-12.3); Platelet Count 400 X10*3/uL (160-400); Red Blood Count 3.43 X10*6/uL (4.20-5.50); Red Cell Distribution Width 15.6 % (11.0-16.0); White Blood Count 18.7 X10*3/uL (4.8-10.8)
[2023-05-01 07:00] LABS: Prothrombin Time 102.5 SEC (10.0-13.1)
[2023-05-01 07:09] LABS: Anion Gap 14 (12-20); Blood Urea Nitrogen 48 mg/dL (9-16); Calcium 9.3 mg/dL (8.4-10.2); Carbon Dioxide 26 mmol/L (22-29); Chloride 107 mmol/L (96-108); Creatinine Clr Calc Pharmacy 42.9; Estimated Glomerular Filt Rate 50; Glucose Random 69 mg/dL (60-115); Potassium 3.1 mmol/L (3.3-5.1); Sodium 144 mmol/L (135-145)
[2023-05-01 07:49] LABS: INTERNATIONAL NORM RATIO 8.2 (0.9-1.1)
[2023-05-01] MEDS: Potassium Chloride ER 20 MEQ TAB.ER.PRT 40 MEQ PO (08:12)
[2023-05-01] MEDS: Albuterol/Iprat 2.5/0.5MG 3 ML AMPUL.NEB INHALE (08:34)
--- NOTE | 2023-05-01 09:06 | MHC.CM.PN ---
CM met with Patient at bedside and addressed IMM with her, providing Patient with the original and placing a copy on the chart. Patient lives on the first floor of a 2 family house with her Adult Granddaughter, with her Daughter living on the 2nd floor. Patient is active with [facility] and home/resume said services is the goal. CM has initiated and will follow for dc planning. Patient has received Covid/Pfizer vax x3 and her PCP is Dr. Joe Tomlinson.
--- NOTE | 2023-05-01 09:06 | PM.CNGS ---
History of Present Illness Consult details Consult date: 05/01/23 Narrative: 83-year-old female patient presenting with a known history of a left breast wound which [facility] presenting to the hospital with increased shortness of breath found to have pneumonia. Surgical consultation was requested for management of the left breast open wound. She reports that this started as a pimple which subsequently popped and left a large wound located at the inframammary crease in the lateral lower left breast. She denies previous infections at this location. An ultrasound was negative for any suspicious findings. No mammograms are noted in the PACS. Review of Systems Review of Systems: Yes all other systems are reviewed and are negative Cardiovascular: Cardiovascular: Reports dyspnea Respiratory: Respiratory: Reports cough, Reports excessive phlegm production and Reports dyspnea Gastrointestinal: Gastrointestinal: Denies abdominal pain Integumentary/Breasts: Skin/Breast: Reports as per [facility] Past Medical History Medical History Benign essential hypertension Cerebellar hemorrhage COPD (chronic obstructive pulmonary disease) Diabetes mellitus Non-rheumatic aortic stenosis Obesity (BMI 30-39.9) Paroxysmal atrial flutter Pure hypercholesterolemia Restrictive lung disease Family History Family History Other Family history non-contributory Surgical History Surgical History No significant past surgical history Social History Social History Household Members: Family Household Members Other:: Daughter, Amarilis, her and kids. Downstairs is her other daughter. Housing: House Do you presently have visiting nurse or other home services: Yes Alcohol intake: never Patient Tobacco Use Status: Former Tobacco user Quit Date: 3+ yrs ago e-Cigarette/Vaping Use: Never Used Second Hand Smoke Exposure: Yes service: No Current occupational status: retired Cognitive needs: Yes (walker) Hearing needs: No Vision needs: Yes (glasses) Meds Allergies Allergy/AdvReac Type Severity Reaction Status Date / Time No Known Allergies Allergy Verified 04/30/23 13:36 [No Known Allergies*] Active Medications: Current Medications Acetaminophen (Acetaminophen 325 Mg Tablet) 650 mg PO Q6H PRN PRN Reason: Pain, Mild (Pain Scale 1-3) Albuterol Sulfate (Albuterol Sulfate 90 Mcg 8 Gm Inhaler) 2 puff INHALE QID PRN PRN Reason: shortness of breath or wheezing Albuterol/Ipratropium (Albuterol/Iprat 2.5/0.5mg 3 Ml Ampul.Neb) 3 ml INHALE RQ4H WHILE AWAKE [facility] Last Admin: 05/01/23 08:34 Dose: 3 ml Collagenase (Collagenase Clostridium Hist. 30 Gm Tube) 1 appl TOPICAL DAILY [facility]; Protocol Docusate Sodium (Docusate Sodium 100 Mg Capsule) 100 mg PO DAILY PRN PRN Reason: Constipation Fluticasone/Vilanterol (Fluticasone/Vilanterol 200/25 Blst.W.Dev) 1 puff INHALE RBID [facility] Last Admin: 05/01/23 08:36 Dose: Not Given Ceftriaxone Sodium 1 gm/ (Sodium Chloride) 50 mls @ 100 mls/hr IV Q24H [facility] Azithromycin 500 mg/ Sodium (Chloride) 250 mls @ 125 mls/hr IV Q24H [facility] Ondansetron HCl (Ondansetron Hcl 4 Mg/2 Ml Vial) 4 mg IVPUSH Q8H PRN PRN Reason: Nausea and Vomiting Pharmacy Consult (Consult Rx Perform Med Rec) 1 each MISCELLANE ONCE PRN PRN Reason: Consult order Potassium Chloride (Potassium Chloride Er 10 Meq Tablet.Er) 10 meq PO Q2D@0900 [facility] Sodium Chloride (0.9 % Sodium Chloride Flush 3 Ml Syringe) 3 ml IVFLUSH QSHIFT [facility] Last Admin: 05/01/23 08:12 Dose: 3 ml Home Medications Medication Instructions Recorded Confirmed Last Taken Type alogliptin 25 mg tablet 25 mg PO DAILY 03/13/23 04/30/23 04/30/23 History collagenase clostridium histo. 250 1 appl topical DAILY 04/30/23 04/30/23 Unknown History unit/gram topical ointment (Santyl) fluticasone furoate 200 1 inh inhalation BID 04/30/23 04/30/23 Unknown History mcg-vilanterol 25 mcg/dose inhalation powder (Breo Ellipta) furosemide 20 mg tablet 20 mg PO DAILY PRN Edema 04/30/23 04/30/23 Unknown History warfarin 2.5 mg tablet 2.5 mg PO DAILY@1800 04/30/23 04/30/23 Unknown History Physical Exam Vital Signs: Vital Signs: Last Vital Signs Temp 98.0 F 05/01/23 07:29 Pulse 85 05/01/23 08:34 Resp 16 05/01/23 08:34 BP 103/56 L 05/01/23 07:29 Pulse Ox 93 05/01/23 07:29 O2 Del Method Nasal Cannula 05/01/23 07:29 O2 Flow Rate 2 05/01/23 07:29 BMI result Body Mass Index 35.6 Const: General: alert and awake Nutritional Appearance: obese Orientation/consciousness: patient oriented x3 HEENT: Head: Yes normocephalic and Yes atraumatic Chest: Other: Open wound noted in the inframammary crease measuring approximately 3 cm x 2 cm by 1 cm deep with granulated base. The surrounding edges are soft with no palpable mass appreciated. Wound appears to be within the skin subcutaneous tissue with no extension into the breast tissue. Serous discharge is noted surrounding the wound. Chest/axillae images: 1. Site of breast ulcer left side inframammary crease Resp: Other: Mild shortness of breath with nasal O2, occasional cough productive. Skin: Other: Skin ulcer in breast as noted above Neuro: General: patient oriented x3 Results Labs 05/01/23 06:11 05/01/23 06:11 Labs: Abnormal lab results 04/30/23 04/30/23 04/30/23 Range/Units 14:40 14:40 14:40 WBC 23.3 H (4.8-10.8) X10*3/uL RBC 4.12 L (4.20-5.50) X10*6/uL Hgb 10.7 L (12.0-16.0) g/dl Hct 35.1 L (37.0-47.0) % MCH 26.0 L (27.0-33.0) pg MCHC 30.5 L (31.0-35.0) g/dl Plt Count 493 H (160-400) X10*3/uL Immature Gran % (Auto) 0.9 H (0.0-0.4) % Neut % (Auto) 86.1 H (45-73) % Lymph % (Auto) 6.9 L (20-40) % [place] # (Auto) 1.3 H (0.1-1.2) X10*3/uL Abs Immat Gran (auto) 0.21 H (0.00-0.03) X10*3/uL Absolute Neuts (auto) 20.1 H (2.0-8.3) x10*3/uL PT 74.4 H (10.0-13.1) SEC INR 6.0 H* D (0.9-1.1) VBG pH (7.32-7.43) VBG HCO3 (22-26) mmol/L Potassium (3.3-5.1) mmol/L BUN 50 H (9-16) mg/dL Creatinine 1.50 H (0.5-1.4) mg/dL Random Glucose 139 H (60-115) mg/dL Calcium 10.3 H D (8.4-10.2) mg/dL Iron (30-160) mcg/dL TIBC (228-428) mcg/dL % Saturation (15-50) % AST 37 H (5-31) U/L Alkaline Phosphatase 379 H (39-117) U/L B-Natriuretic Peptide (<100) pg/mL Albumin 2.8 L (3.5-5.0) g/dL Vitamin B12 (200-900) pg/mL Urine Protein (Neg-Trace) mg/dL Urine Blood (Negative) Urine Nitrite (Negative) Ur Leukocyte Esterase (Negative) Urine RBC (0-2) /HPF Urine WBC (0-5) /HPF 04/30/23 04/30/23 04/30/23 Range/Units 14:40 14:49 20:18 WBC (4.8-10.8) X10*3/uL RBC (4.20-5.50) X10*6/uL Hgb (12.0-16.0) g/dl Hct (37.0-47.0) % MCH (27.0-33.0) pg MCHC (31.0-35.0) g/dl Plt Count (160-400) X10*3/uL Immature Gran % (Auto) (0.0-0.4) % Neut % (Auto) (45-73) % Lymph % (Auto) (20-40) % [place] # (Auto) (0.1-1.2) X10*3/uL Abs Immat Gran (auto) (0.00-0.03) X10*3/uL Absolute Neuts (auto) (2.0-8.3) x10*3/uL PT (10.0-13.1) SEC INR (0.9-1.1) VBG pH 7.48 H (7.32-7.43) VBG HCO3 30 H (22-26) mmol/L Potassium (3.3-5.1) mmol/L BUN (9-16) mg/dL Creatinine (0.5-1.4) mg/dL Random Glucose (60-115) mg/dL Calcium (8.4-10.2) mg/dL Iron 11 L (30-160) mcg/dL TIBC 130 L (228-428) mcg/dL % Saturation 8 L (15-50) % AST (5-31) U/L Alkaline Phosphatase (39-117) U/L B-Natriuretic Peptide 107 H (<100) pg/mL Albumin (3.5-5.0) g/dL Vitamin B12 (200-900) pg/mL Urine Protein (Neg-Trace) mg/dL Urine Blood (Negative) Urine Nitrite (Negative) Ur Leukocyte Esterase (Negative) Urine RBC (0-2) /HPF Urine WBC (0-5) /HPF 04/30/23 04/30/23 05/01/23 Range/Units 20:18 22:39 06:11 WBC (4.8-10.8) X10*3/uL RBC (4.20-5.50) X10*6/uL Hgb (12.0-16.0) g/dl Hct (37.0-47.0) % MCH (27.0-33.0) pg MCHC (31.0-35.0) g/dl Plt Count (160-400) X10*3/uL Immature Gran % (Auto) (0.0-0.4) % Neut % (Auto) (45-73) % Lymph % (Auto) (20-40) % [place] # (Auto) (0.1-1.2) X10*3/uL Abs Immat Gran (auto) (0.00-0.03) X10*3/uL Absolute Neuts (auto) (2.0-8.3) x10*3/uL PT 102.5 H (10.0-13.1) SEC INR 8.2 H* D (0.9-1.1) VBG pH (7.32-7.43) VBG HCO3 (22-26) mmol/L Potassium (3.3-5.1) mmol/L BUN (9-16) mg/dL Creatinine (0.5-1.4) mg/dL Random Glucose (60-115) mg/dL Calcium (8.4-10.2) mg/dL Iron (30-160) mcg/dL TIBC (228-428) mcg/dL % Saturation (15-50) % AST (5-31) U/L Alkaline Phosphatase (39-117) U/L B-Natriuretic Peptide (<100) pg/mL Albumin (3.5-5.0) g/dL Vitamin B12 962 H (200-900) pg/mL Urine Protein 100 (2+) H (Neg-Trace) mg/dL Urine Blood Large (3+) H (Negative) Urine Nitrite Positive H (Negative) Ur Leukocyte Esterase Large (3+) H (Negative) Urine RBC 11-20 H (0-2) /HPF Urine WBC >50 H (0-5) /HPF 05/01/23 05/01/23 Range/Units 06:11 06:11 WBC 18.7 H (4.8-10.8) X10*3/uL RBC 3.43 L (4.20-5.50) X10*6/uL Hgb 8.9 L (12.0-16.0) g/dl Hct 29.1 L (37.0-47.0) % MCH 25.9 L (27.0-33.0) pg MCHC 30.6 L (31.0-35.0) g/dl Plt Count (160-400) X10*3/uL Immature Gran % (Auto) (0.0-0.4) % Neut % (Auto) (45-73) % Lymph % (Auto) (20-40) % [place] # (Auto) (0.1-1.2) X10*3/uL Abs Immat Gran (auto) (0.00-0.03) X10*3/uL Absolute Neuts (auto) (2.0-8.3) x10*3/uL PT (10.0-13.1) SEC INR (0.9-1.1) VBG pH (7.32-7.43) VBG HCO3 (22-26) mmol/L Potassium 3.1 L D (3.3-5.1) mmol/L BUN 48 H (9-16) mg/dL Creatinine (0.5-1.4) mg/dL Random Glucose (60-115) mg/dL Calcium (8.4-10.2) mg/dL Iron (30-160) mcg/dL TIBC (228-428) mcg/dL % Saturation (15-50) % AST (5-31) U/L Alkaline Phosphatase (39-117) U/L B-Natriuretic Peptide (<100) pg/mL Albumin (3.5-5.0) g/dL Vitamin B12 (200-900) pg/mL Urine Protein (Neg-Trace) mg/dL Urine Blood (Negative) Urine Nitrite (Negative) Ur Leukocyte Esterase (Negative) Urine RBC (0-2) /HPF Urine WBC (0-5) /HPF Short CBC 04/30/23 05/01/23 Range/Units 14:40 06:11 WBC 23.3 H 18.7 H (4.8-10.8) X10*3/uL Hgb 10.7 L 8.9 L (12.0-16.0) g/dl Hct 35.1 L 29.1 L (37.0-47.0) % Plt Count 493 H 400 (160-400) X10*3/uL BMP 04/30/23 05/01/23 14:40 06:11 Sodium 140 144 Potassium 3.9 3.1 L D Chloride 101 107 Carbon Dioxide 27 26 BUN 50 H 48 H Creatinine 1.50 H 1.06 Calcium 10.3 H D 9.3 D Liver Function 04/30/23 Range/Units 14:40 Total Bilirubin 0.9 (0.0-1.0) mg/dL Direct Bilirubin 0.5 (0.0-0.5) mg/dL AST 37 H (5-31) U/L ALT 17 (0-31) U/L Alkaline Phosphatase 379 H (39-117) U/L Albumin 2.8 L (3.5-5.0) g/dL Urine 04/30/23 Range/Units 22:39 Urine Color Dark Yellow Urine Appearance Turbid Urine pH 6.0 (5.0-9.0) Ur Specific [place] 1.020 (1.005-1.025) Urine Protein 100 (2+) H (Neg-Trace) mg/dL Urine Glucose (UA) Negative (Negative) mg/dL All other labs normal. Assessment and Plan (1) Left breast abscess: Status: Acute Plan 83-year-old female patient presenting to the hospitalist service with pneumonia found to have a left breast abscess being treated through the wound care center. On examination there is a 4 x 3 cm ulceration involving skin and subcutaneous tissue right at the inframammary crease in the lateral left breast. The base of the wound is granulating and no surrounding masses appreciated to indicate underlying malignancy. Recommend applying silver alginate to the wound followed by dry sterile dressing. Would not recommend a non adherent dressing which will hold the moisture to the skin. Dressing should be changed on a daily basis. She should follow-up with wound care following discharge. Time Spent With Patient Time: Total time managing care of this patient today ____ minutes. Procedures Date of Service Date of Service: 05/01/23
--- NOTE | 2023-05-01 09:23 | MHC.CM.PN ---
Patient is active with [facility] for RN.
--- NOTE | 2023-05-01 11:02 | P.PNIM_ITS ---
Subjective Subjective Date of Service: 05/01/23 Interval History: being followed for pneumonia, BEENA, feeling better less shortness of breath complaining of cough bringing up yellowish green phlegm, denies lightheadedness or dizziness, no fevers, no chills, soft blood pressures tele monitor showed normal sinus rhythm, BP improved this a.m. Review of Systems all other system reviewed and negative. Physical Exam Vital Signs: Vital Signs: Last Vital Signs Temp 98.0 F 05/01/23 07:29 Pulse 85 05/01/23 08:34 Resp 16 05/01/23 08:34 BP 103/56 L 05/01/23 07:29 Pulse Ox 93 05/01/23 07:29 O2 Del Method Nasal Cannula 05/01/23 07:29 O2 Flow Rate 2 05/01/23 07:29 BMI result Body Mass Index 35.6 Const: Other: Constitutional:?Alert, awake in no acute distress. Neck no jvd Respiratory:? bilateral coarse breath sound, no crackles, no use of accessory muscles Cardiovascular:?S1, S2 regular. No murmurs, rubs, or gallops. Gastrointestinal:?Abdomen soft, non-tender, non-distended. Normal bowel sounds. Neurologic:?Cranial nerves II-XII intact bilaterally. No focal neurological deficits. speech clear, limited range of motion lower extremity due to hip discomfort Skin:?Open wound under left breast. Clean margins, non-draining, non-eryth ematous, no signs of infection. See pictures in admission note Musculoskeletal:?Reduced 1/5 strength of lower extremities bilaterally. Passive ROM of left hip intact, non-painful. Extremities:?No edema. Psychiatric:?Normal mood and affect. Objective Data Active Medications Acetaminophen (Acetaminophen 325 Mg Tablet) 650 mg PO Q6H PRN PRN Reason: Pain, Mild (Pain Scale 1-3) Albuterol Sulfate (Albuterol Sulfate 90 Mcg 8 Gm Inhaler) 2 puff INHALE QID PRN PRN Reason: shortness of breath or wheezing Albuterol/Ipratropium (Albuterol/Iprat 2.5/0.5mg 3 Ml Ampul.Neb) 3 ml INHALE RQ4H WHILE AWAKE [facility] Last Admin: 05/01/23 08:34 Dose: 3 ml Documented By: DEANA Collagenase (Collagenase Clostridium Hist. 30 Gm Tube) 1 appl TOPICAL DAILY [facility]; Protocol Docusate Sodium (Docusate Sodium 100 Mg Capsule) 100 mg PO DAILY PRN PRN Reason: Constipation Fluticasone/Vilanterol (Fluticasone/Vilanterol 200/25 Blst.W.Dev) 1 puff INHALE RBID [facility] Last Admin: 05/01/23 08:36 Dose: Not Given Documented By: DEANA Non-Admin Reason: Patient Refused Ceftriaxone Sodium 1 gm/ (Sodium Chloride) 50 mls @ 100 mls/hr IV Q24H [facility] Azithromycin 500 mg/ Sodium (Chloride) 250 mls @ 125 mls/hr IV Q24H [facility] Ondansetron HCl (Ondansetron Hcl 4 Mg/2 Ml Vial) 4 mg IVPUSH Q8H PRN PRN Reason: Nausea and Vomiting Pharmacy Consult (Consult Rx Perform Med Rec) 1 each MISCELLANE ONCE PRN PRN Reason: Consult order Phytonadione (Phytonadione (Vit K1) Oral 10 Mg/Ml Ampul) 5 mg PO ONCE ONE Stop: 05/01/23 11:01 Potassium Chloride (Potassium Chloride Er 10 Meq Tablet.Er) 10 meq PO Q2D@0900 [facility] Sodium Chloride (0.9 % Sodium Chloride Flush 3 Ml Syringe) 3 ml IVFLUSH QSHIFT [facility] Last Admin: 05/01/23 08:12 Dose: 3 ml Documented By: RENE Labs 05/01/23 06:11 05/01/23 06:11 Labs: Laboratory Results - last 24 hr 04/30/23 04/30/23 04/30/23 14:40 14:40 14:40 MCV 85.2 MCH 26.0 L MCHC 30.5 L RDW 15.8 Plt Count 493 H MPV 9.9 Immature Gran % (Auto) 0.9 H Neut % (Auto) 86.1 H Lymph % (Auto) 6.9 L [place] % (Auto) 5.6 Eos % (Auto) 0.2 Baso % (Auto) 0.3 Lymph # (Auto) 1.6 [place] # (Auto) 1.3 H Eos # (Auto) 0.0 Baso # (Auto) 0.1 Abs Immat Gran (auto) 0.21 H Absolute Neuts (auto) 20.1 H Absolute Nucleated RBC 0.000 Nucleated RBC % (auto) 0.0 Smear Tech's Comments VERIFIED PT 74.4 H INR 6.0 H* D VBG pH VBG pCO2 VBG pO2 VBG HCO3 VBG O2 Saturation VBG Base Excess Anion Gap 16 Estim Creat Clear Calc 30.2 Estimated GFR 33 Random Glucose 139 H Lactic Acid Calcium 10.3 H D Iron TIBC % Saturation Unsat Iron Binding Total Bilirubin 0.9 Direct Bilirubin 0.5 AST 37 H ALT 17 Alkaline Phosphatase 379 H Troponin I High Sens B-Natriuretic Peptide Total Protein 6.5 Albumin 2.8 L Vitamin B12 Folate Urine Color Urine Appearance Urine pH Ur Specific [place] Urine Protein Urine Glucose (UA) Urine Ketones Urine Blood Urine Nitrite Ur Leukocyte Esterase Urine RBC Urine WBC Ur Squamous Epith Cells Urine Bacteria Hyaline Casts COVID-19 (ANEESH) [facility] 04/30/23 04/30/23 04/30/23 14:40 14:40 14:40 MCV MCH MCHC RDW Plt Count MPV Immature Gran % (Auto) Neut % (Auto) Lymph % (Auto) [place] % (Auto) Eos % (Auto) Baso % (Auto) Lymph # (Auto) [place] # (Auto) Eos # (Auto) Baso # (Auto) Abs Immat Gran (auto) Absolute Neuts (auto) Absolute Nucleated RBC Nucleated RBC % (auto) Smear Tech's Comments PT INR VBG pH VBG pCO2 VBG pO2 VBG HCO3 VBG O2 Saturation VBG Base Excess Anion Gap Estim Creat Clear Calc Estimated GFR Random Glucose Lactic Acid 2.0 Calcium Iron TIBC % Saturation Unsat Iron Binding Total Bilirubin Direct Bilirubin AST ALT Alkaline Phosphatase Troponin I High Sens 11.2 B-Natriuretic Peptide 107 H Total Protein Albumin Vitamin B12 Folate Urine Color Urine Appearance Urine pH Ur Specific [place] Urine Protein Urine Glucose (UA) Urine Ketones Urine Blood Urine Nitrite Ur Leukocyte Esterase Urine RBC Urine WBC Ur Squamous Epith Cells Urine Bacteria Hyaline Casts COVID-19 (ANEESH) COVID-19 [place] 04/30/23 04/30/23 04/30/23 14:40 14:49 20:18 MCV MCH MCHC RDW Plt Count MPV Immature Gran % (Auto) Neut % (Auto) Lymph % (Auto) [place] % (Auto) Eos % (Auto) Baso % (Auto) Lymph # (Auto) [place] # (Auto) Eos # (Auto) Baso # (Auto) Abs Immat Gran (auto) Absolute Neuts (auto) Absolute Nucleated RBC Nucleated RBC % (auto) Smear Tech's Comments PT INR VBG pH 7.48 H VBG pCO2 39 VBG pO2 46 VBG HCO3 30 H VBG O2 Saturation 74.0 VBG Base Excess 6.6 Anion Gap Estim Creat Clear Calc Estimated GFR Random Glucose Lactic Acid Calcium Iron 11 L TIBC 130 L % Saturation 8 L Unsat Iron Binding 119 Total Bilirubin Direct Bilirubin AST ALT Alkaline Phosphatase Troponin I High Sens B-Natriuretic Peptide Total Protein Albumin Vitamin B12 Folate Urine Color Urine Appearance Urine pH Ur Specific [place] Urine Protein Urine Glucose (UA) Urine Ketones Urine Blood Urine Nitrite Ur Leukocyte Esterase Urine RBC Urine WBC Ur Squamous Epith Cells Urine Bacteria Hyaline Casts COVID-19 (ANEESH) Negative COVID-QFPay See Note 04/30/23 04/30/23 05/01/23 20:18 22:39 06:11 MCV MCH MCHC RDW Plt Count MPV Immature Gran % (Auto) Neut % (Auto) Lymph % (Auto) [place] % (Auto) Eos % (Auto) Baso % (Auto) Lymph # (Auto) [place] # (Auto) Eos # (Auto) Baso # (Auto) Abs Immat Gran (auto) Absolute Neuts (auto) Absolute Nucleated RBC Nucleated RBC % (auto) Smear Tech's Comments PT 102.5 H INR 8.2 H* D VBG pH VBG pCO2 VBG pO2 VBG HCO3 VBG O2 Saturation VBG Base Excess Anion Gap Estim Creat Clear Calc Estimated GFR Random Glucose Lactic Acid Calcium Iron TIBC % Saturation Unsat Iron Binding Total Bilirubin Direct Bilirubin AST ALT Alkaline Phosphatase Troponin I High Sens B-Natriuretic Peptide Total Protein Albumin Vitamin B12 962 H Folate 7.3 Urine Color Dark Yellow Urine Appearance Turbid Urine pH 6.0 Ur Specific [place] 1.020 Urine Protein 100 (2+) H Urine Glucose (UA) Negative Urine Ketones Trace Urine Blood Large (3+) H Urine Nitrite Positive H Ur Leukocyte Esterase Large (3+) H Urine RBC 11-20 H Urine WBC >50 H Ur Squamous Epith Cells 3-5 Urine Bacteria 4+ Hyaline Casts 0-2 COVID-19 (ANEESH) COVID-QFPay 05/01/23 05/01/23 06:11 06:11 MCV 84.8 MCH 25.9 L MCHC 30.6 L RDW 15.6 Plt Count 400 MPV 9.7 Immature Gran % (Auto) Neut % (Auto) Lymph % (Auto) [place] % (Auto) Eos % (Auto) Baso % (Auto) Lymph # (Auto) [place] # (Auto) Eos # (Auto) Baso # (Auto) Abs Immat Gran (auto) Absolute Neuts (auto) Absolute Nucleated RBC 0.000 Nucleated RBC % (auto) 0.0 Smear Tech's Comments PT INR VBG pH VBG pCO2 VBG pO2 VBG HCO3 VBG O2 Saturation VBG Base Excess Anion Gap 14 Estim Creat Clear Calc 42.9 Estimated GFR 50 Random Glucose 69 Lactic Acid Calcium 9.3 D Iron TIBC % Saturation Unsat Iron Binding Total Bilirubin Direct Bilirubin AST ALT Alkaline Phosphatase Troponin I High Sens B-Natriuretic Peptide Total Protein Albumin Vitamin B12 Folate Urine Color Urine Appearance Urine pH Ur Specific [place] Urine Protein Urine Glucose (UA) Urine Ketones Urine Blood Urine Nitrite Ur Leukocyte Esterase Urine RBC Urine WBC Ur Squamous Epith Cells Urine Bacteria Hyaline Casts COVID-19 (ANEESH) COVID-19 Clin Com Assessment and Plan (1) Pneumonia: Status: Acute (2) BEENA (acute kidney injury): Status: Acute (3) Supratherapeutic INR: Status: Acute (4) Wound of skin: Status: Acute Plan 83-year-old female with a PMH significant for?non insulin-dependent diabetes 2, HTN, HLD, AFib on warfarin, COPD, and HFpEF who presents to the ED with a chief complaint of left hip pain but with multiple other complaints. Pt will be admitted to the hospital for treatment and further evaluation of BEENA and acute hypoxic respiratory failure in the setting of community-acquired pneumonia. Acute hypoxic respiratory failure in the setting community-acquired pneumonia and multiple masses as seen on CT chest feeling better less shortness of breath complaining of persistent cough productive of yellowish-green phlegm oxygenation improved to 93% on 2 L, on admission, 86% O2 on RA, patient not on home O2 no fevers WBC trending down,CXR concerning for multi focal hazy opacities in bilateral lungs, CT chest showed multiple new pulmonary masses differential include infectious versus malignancy continue iv Ceftriaxone,and iv azithromycin, started 04/30/2023, continue supportive care with cough medication, incentive spirometry Titrate supplemental O2>92, wean as tolerated obtain pulmonary consult for further evaluation of bilateral lung mass. BEENA likely pre renal, treated with IV fluid creatinine improved from 1.50-1.06 follow BMP, hold her Lasix, lisinopril and hydrochlorothiazide. Left breast wound open wound under her left breast crease that initially began as a ?blister? that ?popped? 2 weeks ago, is being followed in [facility] breast ultrasound showed no suspicious findings case discussed with Dr. Gar he recommend daily dressing with silver alginate and outpatient follow-up with wound clinic. Left hip pain Patient denies recent fall or trauma to the area Frontal left hip x-ray with no evidence for definite fracture Mild tenderness to palpation of left hip, no pain elicited with passive ROM or reduction in range of motion Most likely secondary to musculoskeletal strain, continue Tylenol. PT evaluation when medically stable Elevated INR INR bumped from 6-8 today will continue to hold warfarin since hematocrit dropped will give vitamin K 5 mg, follow PT INR daily and acute Normocytic anemia new onset normocytic anemia of 10.7/35.1, MCV of 85.2, down from H&H on 11/12/2022 of 14.1/44.2 No obvious signs of active bleeding iron studies with mixed pattern mild iron deficiency along with anemia chronic disease, normal B12, folate, stool for occult blood pending follow CBC, hematocrit above transfusion threshold Hypotension Patient was hypotensive as low as 84/35 treated with iv normal saline, midodrine and albumin 25% x2 BP soft this morning continue to hold antihypertensives HFpEF Does not appear to be in acute exacerbation, hold diuretics due to hypotension monitor clinical status Paroxysmal AFib currently in sinus rhythm with premature atrial complexes will continue to hold Nadolol and Coumadin due to elevated INR COPD no acute exacerbation, continue DuoNeb, continue Breo Ellipta. Full Code DVT Prophylaxis: elevated INR Pt. will require continued inpatient hospitalization for treatment of?acute hypoxic respiratory failure in the setting of community-acquired pneumonia,lung mass and BEENA. Time Spent With Patient Time: Total time managing care of this patient today ____ minutes. Quality Stroke Does the patient have a stroke diagnosis?: No VTE Prior VTE?: No VTE Risk Level:: Medical - moderate - high VTE Device Contraindication: Treatment Not Indicated VTE Drug Contraindication: N/A - Med Ordered
[2023-05-01] MEDS: Phytonadione (Vit K1) Oral 10 MG/ML AMPUL 5 MG PO (11:21)
--- NOTE | 2023-05-01 14:27 | MHC.CM.PN ---
Patient's HCP has been uploaded into [facility] and a copy has been placed on the chart.
[2023-05-01] MEDS: guaiFENesin DM 100/10/5 ML 5 ML SYRUP 10 ML PO ×2 (14:37→21:11)
--- NOTE | 2023-05-01 14:41 | PM.CNPUL ---
History of Present Illness History of Present Illness Consult date: 05/01/23 Chief complaint: pulmonary masses Narrative: 83-year-old lady with underlying history of mixed restrictive lung disease/COPD, AFib on anticoagulation, diastolic heart failure, patient of Dr. Leon, admitted on 04/30/2023 with breast abscess, coagulopathy, and malaise, treated with empiric antibiotics, as a part of workup had CT chest that demonstrated biapical pulmonary parenchymal masses and pulmonary evaluation was requested. Patient does complain of slowly worsening dyspnea over the last several weeks. Review of Systems Constitutional: Constitutional: Denies daytime sleepiness, Denies excessive sweating, Reports fatigue, Denies fever(s), Denies lethargy, Reports malaise, Denies night sweats, Denies snoring and Denies weight loss Eyes: Eyes: Denies blurry vision and Denies itchy eyes ENT: Denies nasal congestion, Denies post nasal drip, Denies sinus pain, Denies sinus pressure and Denies other ( Thrush) Cardiovascular: Cardiovascular: Denies chest pain, Reports pedal edema, Denies dyspnea, Reports dyspnea on exertion, Denies orthopnea and Denies paroxysmal nocturnal dyspnea Respiratory: Respiratory: Denies cough, Denies hemoptysis, Denies excessive phlegm production, Denies dyspnea, Reports dyspnea on exertion, Denies snoring and Denies wheezing Gastrointestinal: Gastrointestinal: Denies abdominal pain and Denies heartburn Musculoskeletal: Musculoskeletal: Denies myalgias, Denies arthralgias and Denies joint swelling Integumentary/Breasts: Skin/Breast: Denies rash Neurologic: Denies memory loss and Denies seizure-like activity Psychiatric: Psychiatric: Denies abnormal sleep pattern, Denies anxiety and Denies memory loss Endocrine: Endocrine: Denies excessive sweating, Reports fatigue and Denies heat intolerance Hematologic/Lymphatic: Hematologic/Lymphatic: Denies easy bruising Allergic/Immunologic: Allergic/Immunologic: Denies itchy eyes, Denies seasonal rhinorrhea and Denies wheezing PMFSH Past Medical History Medical History (Updated 05/01/23 @ 14:47 by Huey Nguyen MD) Benign essential hypertension Cerebellar hemorrhage COPD (chronic obstructive pulmonary disease) Diabetes mellitus Non-rheumatic aortic stenosis Obesity (BMI 30-39.9) Paroxysmal atrial flutter Pure hypercholesterolemia Restrictive lung disease Family History Family History Other Family history non-contributory Surgical History Surgical History No significant past surgical history Social History Social History Household Members: Family Household Members Other:: Daughter, Amarilis, her and kids. Downstairs is her other daughter. Housing: House Do you presently have visiting nurse or other home services: Yes Alcohol intake: never Patient Tobacco Use Status: Former Tobacco user Quit Date: 3+ yrs ago e-Cigarette/Vaping Use: Never Used Second Hand Smoke Exposure: Yes service: No Current occupational status: retired Cognitive needs: Yes (walker) Hearing needs: No Vision needs: Yes (glasses) Meds Allergies Allergy/AdvReac Type Severity Reaction Status Date / Time No Known Allergies Allergy Verified 04/30/23 13:36 [No Known Allergies*] Active Medications: Current Medications Acetaminophen (Acetaminophen 325 Mg Tablet) 650 mg PO Q6H PRN PRN Reason: Pain, Mild (Pain Scale 1-3) Albuterol Sulfate (Albuterol Sulfate 90 Mcg 8 Gm Inhaler) 2 puff INHALE QID PRN PRN Reason: shortness of breath or wheezing Albuterol/Ipratropium (Albuterol/Iprat 2.5/0.5mg 3 Ml Ampul.Neb) 3 ml INHALE RQ4H WHILE AWAKE [facility] Last Admin: 05/01/23 12:30 Dose: Not Given Collagenase (Collagenase Clostridium Hist. 30 Gm Tube) 1 appl TOPICAL DAILY [facility]; Protocol Last Admin: 05/01/23 11:12 Dose: Not Given Docusate Sodium (Docusate Sodium 100 Mg Capsule) 100 mg PO DAILY PRN PRN Reason: Constipation Fluticasone/Vilanterol (Fluticasone/Vilanterol 200/25 Blst.W.Dev) 1 puff INHALE RBID [facility] Last Admin: 05/01/23 08:36 Dose: Not Given Guaifenesin/Dextromethorphan (Guaifenesin Dm 100/10/5 Ml 5 Ml Syrup) 10 ml PO TID [facility] Last Admin: 05/01/23 14:37 Dose: 10 ml Ceftriaxone Sodium 1 gm/ (Sodium Chloride) 50 mls @ 100 mls/hr IV Q24H [facility] Azithromycin 500 mg/ Sodium (Chloride) 250 mls @ 125 mls/hr IV Q24H [facility] Ondansetron HCl (Ondansetron Hcl 4 Mg/2 Ml Vial) 4 mg IVPUSH Q8H PRN PRN Reason: Nausea and Vomiting Pharmacy Consult (Consult Rx Perform Med Rec) 1 each MISCELLANE ONCE PRN PRN Reason: Consult order Potassium Chloride (Potassium Chloride Er 10 Meq Tablet.Er) 10 meq PO Q2D@0900 [facility] Sodium Chloride (0.9 % Sodium Chloride Flush 3 Ml Syringe) 3 ml IVFLUSH QSHIFT [facility] Last Admin: 05/01/23 14:40 Dose: 3 ml Home Medications Medication Instructions Recorded Confirmed Last Taken Type alogliptin 25 mg tablet 25 mg PO DAILY 03/13/23 04/30/23 04/30/23 History collagenase clostridium histo. 250 1 appl topical DAILY 04/30/23 04/30/23 Unknown History unit/gram topical ointment (Santyl) fluticasone furoate 200 1 inh inhalation DAILY 04/30/23 05/01/23 Unknown History mcg-vilanterol 25 mcg/dose inhalation powder (Breo Ellipta) furosemide 20 mg tablet 20 mg PO DAILY PRN Edema 04/30/23 04/30/23 Unknown History warfarin 2.5 mg tablet 2.5 mg PO DAILY@1800 04/30/23 Unknown History lisinopril 10 1 tab PO DAILY 05/01/23 05/01/23 Unknown History mg-hydrochlorothiazide 12.5 mg tablet lovastatin 40 mg tablet 40 mg PO DAILY 05/01/23 05/01/23 Unknown History potassium chloride 10 mEq 10 meq PO DAILY 05/01/23 05/01/23 Unknown History tablet,extended release warfarin 2.5 mg tablet 1.25 mg PO DAILY 05/01/23 05/01/23 Unknown History Physical Exam Vital Signs: Vital Signs: Last Vital Signs Temp 97.9 F 05/01/23 11:38 Pulse 78 05/01/23 11:38 Resp 18 05/01/23 11:38 BP 98/60 05/01/23 11:38 Pulse Ox 93 05/01/23 11:38 O2 Del Method Nasal Cannula 05/01/23 11:38 O2 Flow Rate 2 05/01/23 07:29 BMI result Body Mass Index 35.6 Const: General: no acute distress and alert Nutritional Appearance: obese Orientation/consciousness: Other orientation findings ( oriented) HEENT: Head: Yes atraumatic Eyes: General: appearance normal, both eyes and all related structures Sclerae: sclerae normal EOM: EOMs intact bilaterally Neck: Neck: Yes supple Lymphatic: no lymphadenopathy noted Resp: Effort & Inspection: normal respiratory effort and no use of accessory muscles Auscultation: clear to auscultation bilaterally Cardio: Rate: regular rate Rhythm: regular rhythm Heart sounds: no gallops, no murmurs and no rubs Skin: General skin exam: other ( warm) Extrem: General: No clubbing, No cyanosis and Yes edema ( 1+ bilateral) Results Laboratory Findings 05/01/23 06:11 05/01/23 06:11 ABG, PT/INR, D-dimer: PT/INR, D-dimer PT 102.5 SEC (10.0-13.1) H 05/01/23 06:11 INR 8.2 (0.9-1.1) H* D 05/01/23 06:11 Abnormal lab findings: Abnormal Labs 04/30/23 04/30/23 04/30/23 14:40 14:40 14:40 WBC 23.3 H RBC 4.12 L Hgb 10.7 L Hct 35.1 L MCH 26.0 L MCHC 30.5 L Plt Count 493 H Immature Gran % (Auto) 0.9 H Neut % (Auto) 86.1 H Lymph % (Auto) 6.9 L [place] # (Auto) 1.3 H Abs Immat Gran (auto) 0.21 H Absolute Neuts (auto) 20.1 H PT 74.4 H INR 6.0 H* D VBG pH VBG HCO3 Potassium BUN 50 H Creatinine 1.50 H Random Glucose 139 H Calcium 10.3 H D Iron TIBC % Saturation AST 37 H Alkaline Phosphatase 379 H B-Natriuretic Peptide Albumin 2.8 L Vitamin B12 Urine Protein Urine Blood Urine Nitrite Ur Leukocyte Esterase Urine RBC Urine WBC 04/30/23 04/30/23 04/30/23 14:40 14:49 20:18 WBC RBC Hgb Hct MCH MCHC Plt Count Immature Gran % (Auto) Neut % (Auto) Lymph % (Auto) [place] # (Auto) Abs Immat Gran (auto) Absolute Neuts (auto) PT INR VBG pH 7.48 H VBG HCO3 30 H Potassium BUN Creatinine Random Glucose Calcium Iron 11 L TIBC 130 L % Saturation 8 L AST Alkaline Phosphatase B-Natriuretic Peptide 107 H Albumin Vitamin B12 Urine Protein Urine Blood Urine Nitrite Ur Leukocyte Esterase Urine RBC Urine WBC 04/30/23 04/30/23 05/01/23 20:18 22:39 06:11 WBC RBC Hgb Hct MCH MCHC Plt Count Immature Gran % (Auto) Neut % (Auto) Lymph % (Auto) [place] # (Auto) Abs Immat Gran (auto) Absolute Neuts (auto) PT 102.5 H INR 8.2 H* D VBG pH VBG HCO3 Potassium BUN Creatinine Random Glucose Calcium Iron TIBC % Saturation AST Alkaline Phosphatase B-Natriuretic Peptide Albumin Vitamin B12 962 H Urine Protein 100 (2+) H Urine Blood Large (3+) H Urine Nitrite Positive H Ur Leukocyte Esterase Large (3+) H Urine RBC 11-20 H Urine WBC >50 H 05/01/23 05/01/23 06:11 06:11 WBC 18.7 H RBC 3.43 L Hgb 8.9 L Hct 29.1 L MCH 25.9 L MCHC 30.6 L Plt Count Immature Gran % (Auto) Neut % (Auto) Lymph % (Auto) [place] # (Auto) Abs Immat Gran (auto) Absolute Neuts (auto) PT INR VBG pH VBG HCO3 Potassium 3.1 L D BUN 48 H Creatinine Random Glucose Calcium Iron TIBC % Saturation AST Alkaline Phosphatase B-Natriuretic Peptide Albumin Vitamin B12 Urine Protein Urine Blood Urine Nitrite Ur Leukocyte Esterase Urine RBC Urine WBC Assessment and Plan (1) Pulmonary parenchymal mass: Status: Acute (2) COPD (chronic obstructive pulmonary disease): Qualifiers: COPD type: unspecified COPD Qualified Code(s): J44.9 - Chronic obstructive pulmonary disease, unspecified Status: Acute (3) Acute respiratory failure with hypoxia: Status: Acute Plan Impression: 83-year-old lady admitted with malaise, breast abscess, possible pneumonia, also CT chest with redemonstration of known biapical pulmonary masses, that previously were evaluate by thoracic surgery at [facility] around April of 2022 with unclear follow-up. Recommendations: At this time would recommend to resume outpatient workup of patient's known biapical pulmonary masses, preferably with a transthoracic biopsy. Her COPD appears to be a stable at this time. It appears that her recent worsening dyspnea is related to mild worsening of underlying diastolic heart failure. Time Spent With Patient Time: Total time managing care of this patient today ____ minutes. Procedures Date of Service Date of Service: 05/01/23
[2023-05-01] MEDS: cefTRIAXone sodium 1 GM in 0.9 % Sodium Chloride 50 ML IV (16:03)
[2023-05-01] MEDS: Azithromycin 500 MG in 0.9 % Sodium Chloride 250 ML 125 MG IV (17:41)
[2023-05-01] MEDS: vancomycin/NS 2,000 MG/500 ML PLAST..BAG 250 MG IV (21:05)
[2023-05-02] VITALS (10 sets, daily range): BP systolic 98–119; BP diastolic 46–60; PULSE 61–72; RESP 16–28; TEMP 36.2–36.9; O2SAT 91–95
[2023-05-02] MEDS: Albuterol/Iprat 2.5/0.5MG 3 ML AMPUL.NEB INHALE ×4 (02:15→19:37)
[2023-05-02 06:58] LABS: Mean Corpuscular Hemoglobin 26.2 pg (27.0-33.0); Mean Corpuscular Volume 84.5 fL (80.0-98.0); Mean Platelet Volume 9.9 fL (9.4-12.3); Platelet Count 392 X10*3/uL (160-400); Red Blood Count 3.43 X10*6/uL (4.20-5.50); Red Cell Distribution Width 15.3 % (11.0-16.0); White Blood Count 17.8 X10*3/uL (4.8-10.8)
--- NOTE | 2023-05-02 07:00 | CA_ITS ---
Transthoracic Echocardiogram Patient (Last, First, Middle): Rosa Carter R Gender: Female Date of : 1940 Age: 83 Procedure Date: 05/02/2023 Procedure Type: Transthoracic [place] [facility] [place]: 157.48 cm Weight: 88. kg BSA: 1.89 m2 Heart Rate: bpm BP: 98 / 46 mmHg Manager Call Center: [facility] Referring MD: Quin BAGLEY Symptoms: sob Study Quality: Technically Difficult, contrast Conclusions: - Normal left ventricular size and systolic function. There is mildly increased left ventricular wall thickness. The visually estimated ejection fraction is between 60-65%. - E/E prime ratio is between 8 and 15 consistent with indeterminate filling pressures. - There is mild to moderate aortic valve stenosis. Findings Procedure Information Contrast agent, definity, is being given per protocol without apparent complications. Left Ventricle Normal left ventricular size and systolic function. There is mildly increased left ventricular wall thickness. The visually estimated ejection fraction is between 60-65%. There is no evidence of regional wall motion abnormalities. Abnormal diastolic function is noted. Spectral Doppler is indicative of an impaired relaxation filling pattern. E/E prime ratio is between 8 and 15 consistent with indeterminate filling pressures. Right Ventricle Normal right ventricular cavity size and systolic function. Atria The left atrium was not well visualized. The right atrium was not well visualized. Aortic Valve There is moderate calcification of the aortic valve. There is mild to moderate aortic valve stenosis. There is no aortic valve regurgitation. Mitral Valve The mitral valve was not well visualized. There is no mitral valve regurgitation. There is no mitral valve stenosis. Pulmonic Valve The pulmonic valve is likely normal. Tricuspid Valve Normal tricuspid valve structure. There is trace tricuspid valve regurgitation. Tricuspid regurgitation envelope is inadequate for calculation of right ventricular systolic pressure. Normal right atrial pressure. Great Vessels All visible segments of the aorta are normal in size. The visualized portions of the pulmonary artery and branches are normal. Venous The inferior vena cava is normal in size and collapses greater than 50% with inspiration. Pericardium/Pleural There is no evidence of pericardial effusion. Prior Study Comparison Changes noted compared to prior study. Mild to moderate . Measurements 2D Linear Measurements IVSd: 1.12 0.6-0.9/0.6-1.0 cm LVIDd: 4.80 3.9-5.3/4.2-5.9 cm LVIDd Index: 2.54 2.4-3.2/2.2-3.1 cm/m2 LVIDs: 2.08 2.0-3.6 cm LVPWd: 0.78 0.7-1.1 cm LA Diam: 3.10 2.7-3.8/3.0-4.0 cm LAIDs Index: 1.64 1.5-2.3 cm/m2 LV Mass: 197.08 67-162/88-224 g LV Mass Index: 104.27 43-95/49-115 g/m2 LVOT Diam: 2.10 3.0+(-)1.3 cm Mitral Valve MV Pk E: 0.60 MV PK A: 0.69 MV Decel Time: 375.00 E/A: 0.90 E'Lateral: 7.18 E'Medial: 4.90 E/E' Med: 12.20 E/E' Lat: 8.30 PHT: 110.00 MVA PHT: 2.00 Decel Taney: 1.59 Aortic Valve AoV Pk Daniel: 2.71 AoV Mn Daniel: 1.97 AoV VTI: 0.70 AoV Pk Grad: 29.00 Aov Mn Grad: 17.00 BELINDA Cont.VTI: 0.87 LVOT LVOT Pk Daniel: 0.73 LVOT Mn Daniel: 0.48 LVOT VTI: 0.18 LVOT Pk Grad: 2.00 LVOT Mn Grad: 1.00 LVOT Diam: 2.10 LVOT Area: 3.46 Diastolic Function MV Pk E: 0.60 MV Pk A: 0.69 E/A: 0.90 E'Medial: 4.90 E/E' Med: 12.20 E' Laterial: 7.18 E/E' Lat: 8.30 Right Ventricle TAPSE (mm): 22.30 TVS' Daniel: 12.20 Tricuspid Valve RA Press: 3.00 Great Vessels Aorta Sinus of Valsalva: 2.95 2.0-3.[address] [place]: 2.59 1.7-3.4 cm Updated in Other Vendor System with Status of Final Uri Wagner MD electronically signed on 05/02/2023 7:57:43 PM with status of Final
[2023-05-02 07:13] LABS: INTERNATIONAL NORM RATIO 1.7 (0.9-1.1); Prothrombin Time 20.3 SEC (10.0-13.1)
[2023-05-02 07:25] LABS: Anion Gap 13 (12-20); Blood Urea Nitrogen 41 mg/dL (9-16); Calcium 9.3 mg/dL (8.4-10.2); Carbon Dioxide 26 mmol/L (22-29); Chloride 106 mmol/L (96-108); Creatinine Clr Calc Pharmacy 52.3; Estimated Glomerular Filt Rate > 60; Glucose Random 175 mg/dL (60-115); Potassium 3.7 mmol/L (3.3-5.1); Sodium 141 mmol/L (135-145)
[2023-05-02] MEDS: Fluticasone/Vilanterol 200/25 BLST.W.DEV 1 PUFF INHALE (08:10)
--- NOTE | 2023-05-02 09:35 | HE.PHANOTE ---
Vancomycin Dosing Renal function is improving. Will increase dose vancomycin 1500 mg Q24H. New expected AUC 502 with a trough of 14.6. Pharmacy will monitor renal function. level scheduled for 05/03 @ 1999. Duy ArnoldD
[2023-05-02] MEDS: Potassium Chloride ER 10 MEQ TABLET.ER PO (10:25)
[2023-05-02] MEDS: guaiFENesin DM 100/10/5 ML 5 ML SYRUP 10 ML PO ×3 (10:25→20:28)
[2023-05-02] MEDS: Collagenase Clostridium Hist. 30 GM TUBE 1 APPL TOPICAL (10:27)
[2023-05-02] MEDS: 0.9 % Sodium Chloride Flush 3 ML SYRINGE IVFLUSH ×2 (10:28→16:38)
--- NOTE | 2023-05-02 10:40 | P.PNIM_ITS ---
Subjective Subjective Date of Service: 05/02/23 Interval History: seen and examined this morning follow up for sob sleeping when entering room, woke easily with verbal stimuli had sob overnight, cxr repeated and was negative - she denies sob at this time. reports ongoing productive cough Review of Systems Review of Systems: Yes all other systems are reviewed and are negative Constitutional Constitutional: Denies chills and Denies fever(s) Cardiovascular Cardiovascular: Denies chest pain and Denies dyspnea Respiratory Respiratory: Reports cough and Denies dyspnea Gastrointestinal Gastrointestinal: Denies abdominal pain Physical Exam Vital Signs: Vital Signs: Last Vital Signs Temp 97.3 F 05/02/23 07:51 Pulse 72 05/02/23 08:34 Resp 18 05/02/23 08:10 BP 98/46 L 05/02/23 07:51 Pulse Ox 93 05/02/23 07:51 O2 Del Method Nasal Cannula 05/02/23 07:51 O2 Flow Rate 1 05/02/23 07:51 BMI result Body Mass Index 35.6 Const: General: cooperative, comfortable, alert and awake Nutritional Appearance: overweight Orientation/consciousness: patient oriented x3 Resp: Effort & Inspection: normal respiratory effort, able to speak in complete sentences, no respiratory distress and no use of accessory muscles Auscultation: rhonchi Cardio: Rate: regular rate Heart sounds: S1 normal heart sound present and S2 normal heart sound present GI: Inspection: No distended Palpation (GI): Soft to palpation and nontender Skin: Other: left breast dressing c/d/i Neuro: General: patient oriented x3, moves all extremities and CN's II-XI in tact bilaterally Extrem: General: Yes no pedal edema Objective Data Active Medications Acetaminophen (Acetaminophen 325 Mg Tablet) 650 mg PO Q6H PRN PRN Reason: Pain, Mild (Pain Scale 1-3) Albuterol Sulfate (Albuterol Sulfate 90 Mcg 8 Gm Inhaler) 2 puff INHALE QID PRN PRN Reason: shortness of breath or wheezing Albuterol/Ipratropium (Albuterol/Iprat 2.5/0.5mg 3 Ml Ampul.Neb) 3 ml INHALE RQ4H WHILE AWAKE [facility] Last Admin: 05/02/23 02:15 Dose: 3 ml Documented By: RINA Collagenase (Collagenase Clostridium Hist. 30 Gm Tube) 1 appl TOPICAL DAILY [facility]; Protocol Last Admin: 05/02/23 10:27 Dose: 1 appl Documented By: CLEMENTE Docusate Sodium (Docusate Sodium 100 Mg Capsule) 100 mg PO DAILY PRN PRN Reason: Constipation Fluticasone/Vilanterol (Fluticasone/Vilanterol 200/25 Blst.W.Dev) 1 puff INHALE RDAILY [facility] Last Admin: 05/02/23 08:10 Dose: 1 puff Documented By: WHITNEY Guaifenesin/Dextromethorphan (Guaifenesin Dm 100/10/5 Ml 5 Ml Syrup) 10 ml PO TID [facility] Last Admin: 05/02/23 10:25 Dose: 10 ml Documented By: CLEMENTE Ceftriaxone Sodium 1 gm/ (Sodium Chloride) 50 mls @ 100 mls/hr IV Q24H [facility] Last Infusion: 05/01/23 16:39 Dose: 0 mls/hr Documented By: GRAZIC Azithromycin 500 mg/ Sodium (Chloride) 250 mls @ 125 mls/hr IV Q24H [facility] Last Infusion: 05/01/23 20:30 Dose: 0 mls/hr Documented By: JAMILTRYogesh Vancomycin HCl 1,500 mg/ (Sodium Chloride) 500 mls @ 333.333 mls/hr IV Q24H [facility] Ondansetron HCl (Ondansetron Hcl 4 Mg/2 Ml Vial) 4 mg IVPUSH Q8H PRN PRN Reason: Nausea and Vomiting Pharmacy Consult (Consult Rx Perform Med Rec) 1 each MISCELLANE ONCE PRN PRN Reason: Consult order Pharmacy Consult (Consult Rx Vancomycin Dosing) 1 each MISCELLANE DAILY PRN PRN Reason: Consult order Potassium Chloride (Potassium Chloride Er 10 Meq Tablet.Er) 10 meq PO DAILY [facility] Last Admin: 05/02/23 10:25 Dose: 10 meq Documented By: CLEMENTE Sodium Chloride (0.9 % Sodium Chloride Flush 3 Ml Syringe) 3 ml IVFLUSH QSHIFT [facility] Last Admin: 05/02/23 10:28 Dose: 3 ml Documented By: CLEMENTE Labs 05/02/23 06:31 05/02/23 06:31 Labs: Laboratory Results - last 24 hr 05/02/23 05/02/23 05/02/23 06:31 06:31 06:31 MCV 84.5 MCH 26.2 L MCHC 31.0 RDW 15.3 Plt Count 392 MPV 9.9 Absolute Nucleated RBC 0.000 Nucleated RBC % (auto) 0.0 PT 20.3 H INR 1.7 H D Anion Gap 13 Estim Creat Clear Calc 52.3 Estimated GFR > 60 Random Glucose 175 H Calcium 9.3 Microbiology Microbiology Results: Microbiology 04/30/23 14:40 Blood Culture - Final Blood - Venous Coag negative Staphylococcus 04/30/23 16:05 Blood Culture - Preliminary Blood - Venous No growth after 24 hours. Assessment and Plan (1) Acute respiratory failure with hypoxia: Status: Acute (2) Left breast abscess: Status: Acute (3) Pneumonia: Status: Acute Plan 83-year-old female with a PMH significant for?non insulin-dependent diabetes 2, HTN, HLD, AFib on warfarin, COPD, and HFpEF who presents to the ED with a chief complaint of left hip pain but with multiple other complaints. Pt will be admitted to the hospital for treatment and further evaluation of BEENA and acute hypoxic respiratory failure in the setting of community-acquired pneumonia. Acute hypoxic respiratory failure related to community-acquired pneumonia and multiple lung masses persistent cough productive of yellowish-green phlegm CXR concerning for multi focal hazy opacities in bilateral lungs, CT chest showed multiple new pulmonary masses differential include infectious versus malignancy - seen by pulm - [place] [facility] [place] follow up - rec outpatient follow up continue iv Ceftriaxone,and iv azithromycin, started 04/30/2023, continue supportive care with cough medication, incentive spirometry wean supplemental oxygen as tolerated HFpEF diuretics due to hypotension, only takes lasix prn at baseline seen by pulm - feels component of chf will check BNP, repeat echo BP soft, will be difficult to diureses if necessary consider cardiology consult BEENA likely pre renal. treated with IV fluid creatinine improved from 1.50-0.87 Lasix, lisinopril and hydrochlorothiazide has been on hold follow BP closely Left breast wound open wound under her left breast crease that initially began as a ?blister? that ?popped? 2 weeks ago, is being followed in [facility] breast ultrasound showed no suspicious findings case discussed with Dr. Gar he recommend daily dressing with silver alginate and outpatient follow-up with wound clinic. Left hip pain Patient denies recent fall or trauma to the area Frontal left hip x-ray with no evidence for definite fracture Mild tenderness to palpation of left hip, no pain elicited with passive ROM or reduction in range of motion Most likely secondary to musculoskeletal strain, continue Tylenol. seen by PT - rec home with services Elevated INR INR bumped up to 8 on 05/02 s/p vit k - now INR 1.7 resume coumadin follow INR acute Normocytic anemia new onset normocytic anemia of 10.7/35.1, MCV of 85.2, down from H&H on 11/12/2022 of 14.1/44.2 No obvious signs of active bleeding iron studies show mixed pattern mild iron deficiency along with anemia chronic disease, normal B12, folate, stool for occult blood pending follow CBC, hematocrit above transfusion threshold Hypotension Patient was hypotensive as low as 84/35 treated with iv normal saline, midodrine and albumin 25% x2 BP soft this morning continue to hold antihypertensives asymptomatic Paroxysmal AFib currently in sinus rhythm with premature atrial complexes continue to hold Nadolol for soft bp resume Coumadin follow INR COPD no acute exacerbation, continue DuoNeb, continue Breo Ellipta. Full Code DVT Prophylaxis: coumadin attending - dr. ashraf dispo - PT rec home with PT when medically stable Pt. will require continued inpatient hospitalization for treatment of?acute hypoxic respiratory failure in the setting of community-acquired pneumonia Time Spent With Patient Time: Total time managing care of this patient today ____ minutes. Quality Stroke Does the patient have a stroke diagnosis?: No VTE Prior VTE?: No VTE Risk Level:: Medical - moderate - high VTE Device Contraindication: Treatment Not Indicated VTE Drug Contraindication: N/A - Med Ordered
--- NOTE | 2023-05-02 12:16 | P.CDIM_ITS ---
PROVIDER RESPONSE TEXT: To clarify, the appropriate diagnosis supported by the clinical indicators: Other (explain): iron deficiency anemia AND anemia of chronic disease QUERY TEXT: PHYSICIAN'S DOCUMENTATION REQUEST Date of Query: 05/02/2023 11:58 AM EDT Patient Name: Rosa Carter Admit Date: 04/30/2023 Dear Quin Allan, A review of the medical record indicates additional documentation may be needed. Please review below and update the documentation accordingly. Clinical Indicators: PN: 05/02 - Plan: Acute normocytic anemia No obvious signs of active bleeding Iron studies with mixed pattern mild iron deficiency along with anemia of chronic disease. LAB: iron 11 L Based on the above, could you clarify the specifics to the iron deficiency: Iron deficiency anemia Other Other (explain)Clinically unable to determine (explain)Thank you, Kimberlee Frost, CCS, CDIS Use of terms such as suspected, likely, concern for, or probable (associated with a specific diagnosi s that is being evaluated, monitored, or treated as if it exists) are acceptable and can be coded in the inpatient se tting, when documented at the time of discharge. Please use your independent medical judgment in providing your response. THIS QUERY IS PART OF THE PERMANENT MEDICAL RECORD
--- NOTE | 2023-05-02 12:16 | P.CDIM_ITS ---
PROVIDER RESPONSE TEXT: To clarify, the appropriate diagnosis supported by the clinical indicators: Hypoalbuminemia QUERY TEXT: PHYSICIAN'S DOCUMENTATION REQUEST Date of Query: 05/02/2023 12:05 PM EDT Patient Name: Rosa Carter Admit Date: 04/30/2023 Dear Quin Allan, A review of the medical record indicates additional documentation may be needed. Please review below and update the documentation accordingly. Clinical Indicators: LAB FINDINGS: albumin 2.8 IV Albumin human Based on the above, is there a diagnosis that correlates with the lab findings: Hypoalbuminemia Labs indicate a diagnosis of (please specify) Other Other (explain)Clinically unable to determine (explain)Thank you, Kimberlee Frost, CCS, CDIS Use of terms such as suspected, likely, concern for, or probable (associated with a specific diagnosi s that is being evaluated, monitored, or treated as if it exists) are acceptable and can be coded in the inpatient se tting, when documented at the time of discharge. Please use your independent medical judgment in providing your response. THIS QUERY IS PART OF THE PERMANENT MEDICAL RECORD
[2023-05-02 12:39] LABS: Procalcitonin 0.58 ng/mL
[2023-05-02 13:05] LABS: B Type Natriuretic Peptide 304 pg/mL (<100)
[2023-05-02] MEDS: cefTRIAXone sodium 1 GM in 0.9 % Sodium Chloride 50 ML IV (16:42)
[2023-05-02] MEDS: Azithromycin 500 MG in 0.9 % Sodium Chloride 250 ML 125 MG IV (18:05)
[2023-05-02] MEDS: Warfarin Sodium 1.25 MG HALFTAB PO (18:12)
[2023-05-03] VITALS (9 sets, daily range): BP systolic 99–130; BP diastolic 53–70; PULSE 63–72; RESP 16–22; TEMP 36.3–36.5; O2SAT 90–95
[2023-05-03 06:51] LABS: MANUAL DIFF FLAG NO
[2023-05-03 06:58] LABS: Basophils Absolute Auto 0.1 X10*3/uL (0.0-0.2); Basophils Percent Auto 0.5 % (0-2); Eosinophils Absolute Auto 0.2 X10*3/uL (0.0-0.4); Eosinophils Percent Auto 1.7 % (0-4); Hematocrit 28.7 % (37.0-47.0); Hemoglobin 8.8 g/dl (12.0-16.0); Imm Gran Abs Auto 0.13 X10*3/uL (0.00-0.03); Imm Gran Pct Auto 0.9 % (0.0-0.4); Lymphocytes Absolute Auto 1.4 X10*3/uL (1.2-4.9); Mean Corpuscular HGB Conc 30.7 g/dl (31.0-35.0); Mean Corpuscular Hemoglobin 25.9 pg (27.0-33.0); Mean Corpuscular Volume 84.4 fL (80.0-98.0); Mean Platelet Volume 9.8 fL (9.4-12.3); Monocytes Absolute Auto 1.1 X10*3/uL (0.1-1.2); Monocytes Percent Auto 7.9 % (2-11); Neutrophils Absolute Auto 10.9 x10*3/uL (2.0-8.3); Platelet Count 383 X10*3/uL (160-400); Red Cell Distribution Width 15.3 % (11.0-16.0); White Blood Count 13.8 X10*3/uL (4.8-10.8)
[2023-05-03 07:11] LABS: Anion Gap 13 (12-20); Blood Urea Nitrogen 32 mg/dL (9-16); Calcium 9.3 mg/dL (8.4-10.2); Carbon Dioxide 26 mmol/L (22-29); Chloride 105 mmol/L (96-108); Creatinine Clr Calc Pharmacy 52.9; Estimated Glomerular Filt Rate > 60; Glucose Random 186 mg/dL (60-115); Potassium 3.8 mmol/L (3.3-5.1); Sodium 140 mmol/L (135-145)
[2023-05-03 07:21] LABS: INTERNATIONAL NORM RATIO 1.6 (0.9-1.1); Prothrombin Time 18.2 SEC (10.0-13.1)
[2023-05-03] MEDS: Albuterol/Iprat 2.5/0.5MG 3 ML AMPUL.NEB INHALE ×4 (07:35→20:04)
[2023-05-03] MEDS: Fluticasone/Vilanterol 200/25 BLST.W.DEV 1 PUFF INHALE (07:36)
[2023-05-03] MEDS: guaiFENesin DM 100/10/5 ML 5 ML SYRUP 10 ML PO ×2 (08:25→15:29)
[2023-05-03] MEDS: Potassium Chloride ER 10 MEQ TABLET.ER PO (08:25)
[2023-05-03] MEDS: 0.9 % Sodium Chloride Flush 3 ML SYRINGE IVFLUSH ×3 (08:26→22:16)
[2023-05-03] MEDS: Collagenase Clostridium Hist. 30 GM TUBE 1 APPL TOPICAL (08:28)
--- NOTE | 2023-05-03 08:44 | PM.CNCAR ---
History of Present Illness History of Present Illness Date of Service: 05/03/23 Requesting physician: Quin Allan Chief complaint: pulmonary masses, dyspnea. ?CHF Narrative: 83-year-old female with lung disease, [id number] aortic valve stenosis, and hypertension presenting for shortness of breath. She has multiple lung masses noticed differential of infection versus malignancy. It appears she had some workup done at [facility] for similar masses in the past. She is on IV antibiotics right now. She is saying her breathing is little better. She is saying that she gets out of breath very easily. She appears quite deconditioned. She is denying any orthopnea currently. No peripheral edema. She has a productive cough. [facility] Past Medical History Medical History Benign essential hypertension Cerebellar hemorrhage COPD (chronic obstructive pulmonary disease) Diabetes mellitus Non-rheumatic aortic stenosis Obesity (BMI 30-39.9) Paroxysmal atrial flutter Pure hypercholesterolemia Restrictive lung disease Family History Family History Other Family history non-contributory Surgical History Surgical History No significant past surgical history Social History Social History Household Members: Family Household Members Other:: Daughter, Amarilis, her and kids. Downstairs is her other daughter. Housing: House Do you presently have visiting nurse or other home services: Yes Alcohol intake: never Patient Tobacco Use Status: Former Tobacco user Quit Date: 3+ yrs ago e-Cigarette/Vaping Use: Never Used Second Hand Smoke Exposure: Yes service: No Current occupational status: retired Cognitive needs: Yes (walker) Hearing needs: No Vision needs: Yes (glasses) Meds Allergies Allergy/AdvReac Type Severity Reaction Status Date / Time No Known Allergies Allergy Verified 04/30/23 13:36 [No Known Allergies*] Active Medications: Current Medications Acetaminophen (Acetaminophen 325 Mg Tablet) 650 mg PO Q6H PRN PRN Reason: Pain, Mild (Pain Scale 1-3) Albuterol Sulfate (Albuterol Sulfate 90 Mcg 8 Gm Inhaler) 2 puff INHALE QID PRN PRN Reason: shortness of breath or wheezing Albuterol/Ipratropium (Albuterol/Iprat 2.5/0.5mg 3 Ml Ampul.Neb) 3 ml INHALE RQ4H WHILE AWAKE [facility] Last Admin: 05/03/23 07:35 Dose: 3 ml Collagenase (Collagenase Clostridium Hist. 30 Gm Tube) 1 appl TOPICAL DAILY [facility]; Protocol Last Admin: 05/03/23 08:28 Dose: 1 appl Docusate Sodium (Docusate Sodium 100 Mg Capsule) 100 mg PO DAILY PRN PRN Reason: Constipation Fluticasone/Vilanterol (Fluticasone/Vilanterol 200/25 Blst.W.Dev) 1 puff INHALE RDAILY [facility] Last Admin: 05/03/23 07:36 Dose: 1 puff Guaifenesin/Dextromethorphan (Guaifenesin Dm 100/10/5 Ml 5 Ml Syrup) 10 ml PO TID [facility] Last Admin: 05/03/23 08:25 Dose: 10 ml Ceftriaxone Sodium 1 gm/ (Sodium Chloride) 50 mls @ 100 mls/hr IV Q24H [facility] Last Infusion: 05/02/23 18:14 Dose: Infused Azithromycin 500 mg/ Sodium (Chloride) 250 mls @ 125 mls/hr IV Q24H [facility] Last Infusion: 05/02/23 20:29 Dose: Infused Ondansetron HCl (Ondansetron Hcl 4 Mg/2 Ml Vial) 4 mg IVPUSH Q8H PRN PRN Reason: Nausea and Vomiting Pharmacy Consult (Consult Rx Perform Med Rec) 1 each MISCELLANE ONCE PRN PRN Reason: Consult order Potassium Chloride (Potassium Chloride Er 10 Meq Tablet.Er) 10 meq PO DAILY [facility] Last Admin: 05/03/23 08:25 Dose: 10 meq Sodium Chloride (0.9 % Sodium Chloride Flush 3 Ml Syringe) 3 ml IVFLUSH QSHIFT [facility] Last Admin: 05/03/23 08:26 Dose: 3 ml Warfarin Sodium (Warfarin Sodium 1.25 Mg Halftab) 1.25 mg PO DAILY@1800 [facility] Last Admin: 05/02/23 18:12 Dose: 1.25 mg Home Medications Medication Instructions Recorded Confirmed Last Taken Type alogliptin 25 mg tablet 25 mg PO DAILY 03/13/23 04/30/23 04/30/23 History collagenase clostridium histo. 250 1 appl topical DAILY 04/30/23 04/30/23 Unknown History unit/gram topical ointment (Santyl) fluticasone furoate 200 1 inh inhalation DAILY 04/30/23 05/01/23 Unknown History mcg-vilanterol 25 mcg/dose inhalation powder (Breo Ellipta) furosemide 20 mg tablet 20 mg PO DAILY PRN Edema 04/30/23 04/30/23 Unknown History warfarin 2.5 mg tablet 2.5 mg PO DAILY@1800 04/30/23 Unknown History lisinopril 10 1 tab PO DAILY 05/01/23 05/01/23 Unknown History mg-hydrochlorothiazide 12.5 mg tablet lovastatin 40 mg tablet 40 mg PO DAILY 05/01/23 05/01/23 Unknown History potassium chloride 10 mEq 10 meq PO DAILY 05/01/23 05/01/23 Unknown History tablet,extended release warfarin 2.5 mg tablet 1.25 mg PO DAILY 05/01/23 05/01/23 Unknown History Physical Exam Vital Signs: Vital Signs: Last Vital Signs Temp 97.3 F 05/03/23 07:27 Pulse 63 05/03/23 08:14 Resp 16 05/03/23 07:37 BP 112/70 05/03/23 07:27 Pulse Ox 95 05/03/23 07:27 O2 Del Method Nasal Cannula 05/03/23 07:27 O2 Flow Rate 1 05/03/23 07:27 BMI result Body Mass Index 35.6 GENERAL APPEARANCE: in no acute distress, pleasant. NECK: no carotid bruit, no jugular venous distention. SKIN: no suspicious lesions, warm and dry. HEART: Systolic murmur, regular rate and rhythm. LUNGS: clear to auscultation bilaterally. ABDOMEN: soft, nontender. EXTREMITIES: no edema. PERIPHERAL PULSES: equal. NEUROLOGIC: No gross deficits, AAO X 3 Objective Labs and Meds 05/03/23 06:30 05/03/23 06:30 Lab results: Laboratory Results - last 24 hr 05/02/23 05/02/23 05/02/23 06:31 06:31 12:27 WBC RBC Hgb Hct MCV MCH MCHC RDW Plt Count MPV Immature Gran % (Auto) Neut % (Auto) Lymph % (Auto) [place] % (Auto) Eos % (Auto) Baso % (Auto) Lymph # (Auto) [place] # (Auto) Eos # (Auto) Baso # (Auto) Abs Immat Gran (auto) Absolute Neuts (auto) Absolute Nucleated RBC Nucleated RBC % (auto) PT INR Sodium Potassium Chloride Carbon Dioxide Anion Gap BUN Creatinine Estim Creat Clear Calc Estimated GFR Random Glucose Calcium B-Natriuretic Peptide Cancelled 304 H Procalcitonin 0.58 05/03/23 05/03/23 05/03/23 06:30 06:30 06:30 WBC 13.8 H RBC 3.40 L Hgb 8.8 L Hct 28.7 L MCV 84.4 MCH 25.9 L MCHC 30.7 L RDW 15.3 Plt Count 383 MPV 9.8 Immature Gran % (Auto) 0.9 H Neut % (Auto) 79.0 H Lymph % (Auto) 10.0 L [place] % (Auto) 7.9 Eos % (Auto) 1.7 Baso % (Auto) 0.5 Lymph # (Auto) 1.4 [place] # (Auto) 1.1 Eos # (Auto) 0.2 Baso # (Auto) 0.1 Abs Immat Gran (auto) 0.13 H Absolute Neuts (auto) 10.9 H Absolute Nucleated RBC 0.000 Nucleated RBC % (auto) 0.0 PT 18.2 H INR 1.6 H Sodium 140 Potassium 3.8 Chloride 105 Carbon Dioxide 26 Anion Gap 13 BUN 32 H Creatinine 0.86 Estim Creat Clear Calc 52.9 Estimated GFR > 60 Random Glucose 186 H Calcium 9.3 B-Natriuretic Peptide Procalcitonin Assessment and Plan (1) Acute respiratory failure with hypoxia: Status: Acute Plan [age] female who we have been asked to assess for congestive heart failure. She has multiple lung masses at this point with concern for malignancy versus infection. She is on IV antibiotics currently. On Coumadin for anticoagulation for paroxysmal atrial fibrillation. Blood pressure has been soft. Overall, it appears that underlying lung issues or the cause for the dyspnea. She is also quite frail and deconditioning. I do not think she has significantly volume overloaded to cause any symptoms. Her lisinopril hydrochlorothiazide has been held due to low blood pressures. Do not recommend any IV diuretics right now. [id number] aortic valve stenosis-this just needs observation for now. We will follow along with you. Thank you for allowing me to participate in the care of your patient. Please feel free to contact me if you have any questions. Time Spent With Patient Time: Total time managing care of this patient today ____ minutes. Procedures Date of Service Date of Service: 05/03/23
--- NOTE | 2023-05-03 10:35 | MHC.CM.PN ---
Per ROUNDS discussion, Patient is still SOB and not yet medically cleared for dc. PT is recommending home PT and CM will continue to follow.
--- NOTE | 2023-05-03 13:08 | P.PNIM_ITS ---
Subjective Subjective Date of Service: 05/03/23 Interval History: seen and examined this morning follow up for pneumonia feeling better this am, still with cough, sob with movement no chest pain Review of Systems Review of Systems: Yes all other systems are reviewed and are negative Constitutional Constitutional: Denies chills and Denies fever(s) Cardiovascular Cardiovascular: Denies chest pain, Denies palpitations and Reports dyspnea on exertion Respiratory Respiratory: Reports cough and Reports dyspnea on exertion Gastrointestinal Gastrointestinal: Denies abdominal pain, Denies nausea and Denies vomiting Endocrine Endocrine: Denies palpitations Physical Exam Vital Signs: Vital Signs: Last Vital Signs Temp 97.3 F 05/03/23 07:27 Pulse 68 05/03/23 11:33 Resp 18 05/03/23 11:33 BP 112/70 05/03/23 07:27 Pulse Ox 95 05/03/23 07:27 O2 Del Method Nasal Cannula 05/03/23 07:27 O2 Flow Rate 1 05/03/23 07:27 BMI result Body Mass Index 35.6 Const: General: cooperative, comfortable, alert and awake Nutritional Appearance: overweight Orientation/consciousness: patient oriented x3 Resp: Other: rhonchi b/l Effort & Inspection: normal respiratory effort, able to speak in complete sentences, no respiratory distress and no use of accessory muscles Cardio: Rate: regular rate Heart sounds: S1 normal heart sound present and S2 normal heart sound present GI: Inspection: No distended Palpation (GI): Soft to palpation and nontender Skin: Other: left breast dressing c/d/i Neuro: General: patient oriented x3, moves all extremities and CN's II-XI in tact bilaterally Extrem: General: Yes no pedal edema Objective Data Active Medications Acetaminophen (Acetaminophen 325 Mg Tablet) 650 mg PO Q6H PRN PRN Reason: Pain, Mild (Pain Scale 1-3) Albuterol Sulfate (Albuterol Sulfate 90 Mcg 8 Gm Inhaler) 2 puff INHALE QID PRN PRN Reason: shortness of breath or wheezing Albuterol/Ipratropium (Albuterol/Iprat 2.5/0.5mg 3 Ml Ampul.Neb) 3 ml INHALE RQ4H WHILE AWAKE [facility] Last Admin: 05/03/23 11:33 Dose: 3 ml Documented By: MELITON Collagenase (Collagenase Clostridium Hist. 30 Gm Tube) 1 appl TOPICAL DAILY [facility]; Protocol Last Admin: 05/03/23 08:28 Dose: 1 appl Documented By: JUDY Docusate Sodium (Docusate Sodium 100 Mg Capsule) 100 mg PO DAILY PRN PRN Reason: Constipation Fluticasone/Vilanterol (Fluticasone/Vilanterol 200/25 Blst.W.Dev) 1 puff INHALE RDAILY [facility] Last Admin: 05/03/23 07:36 Dose: 1 puff Documented By: MELITON Guaifenesin/Dextromethorphan (Guaifenesin Dm 100/10/5 Ml 5 Ml Syrup) 10 ml PO TID [facility] Last Admin: 05/03/23 08:25 Dose: 10 ml Documented By: JUDY Ceftriaxone Sodium 1 gm/ (Sodium Chloride) 50 mls @ 100 mls/hr IV Q24H [facility] Last Infusion: 05/02/23 18:14 Dose: 0 mls/hr Documented By: DON Azithromycin 500 mg/ Sodium (Chloride) 250 mls @ 125 mls/hr IV Q24H [facility] Last Infusion: 05/02/23 20:29 Dose: 0 mls/hr Documented By: DON Ondansetron HCl (Ondansetron Hcl 4 Mg/2 Ml Vial) 4 mg IVPUSH Q8H PRN PRN Reason: Nausea and Vomiting Pharmacy Consult (Consult Rx Perform Med Rec) 1 each MISCELLANE ONCE PRN PRN Reason: Consult order Potassium Chloride (Potassium Chloride Er 10 Meq Tablet.Er) 10 meq PO DAILY [facility] Last Admin: 05/03/23 08:25 Dose: 10 meq Documented By: JUDY Sodium Chloride (0.9 % Sodium Chloride Flush 3 Ml Syringe) 3 ml IVFLUSH QSHIFT [facility] Last Admin: 05/03/23 08:26 Dose: 3 ml Documented By: JUDY Warfarin Sodium (Warfarin Sodium 1.25 Mg Halftab) 1.25 mg PO DAILY@1800 [facility] Warfarin Sodium (Warfarin Sodium 5 Mg Tablet) 5 mg PO ONCE@1800 ONE Stop: 05/03/23 18:01 Labs 05/03/23 06:30 05/03/23 06:30 Labs: Laboratory Results - last 24 hr 06/30/23 06/30/23 06/30/23 06:30 06:30 06:30 MCV 84.4 MCH 25.9 L MCHC 30.7 L RDW 15.3 Plt Count 383 MPV 9.8 Immature Gran % (Auto) 0.9 H Neut % (Auto) 79.0 H Lymph % (Auto) 10.0 L [place] % (Auto) 7.9 Eos % (Auto) 1.7 Baso % (Auto) 0.5 Lymph # (Auto) 1.4 [place] # (Auto) 1.1 Eos # (Auto) 0.2 Baso # (Auto) 0.1 Abs Immat Gran (auto) 0.13 H Absolute Neuts (auto) 10.9 H Absolute Nucleated RBC 0.000 Nucleated RBC % (auto) 0.0 PT 18.2 H INR 1.6 H Anion Gap 13 Estim Creat Clear Calc 52.9 Estimated GFR > 60 Random Glucose 186 H Calcium 9.3 Microbiology Microbiology Results: Microbiology 04/30/23 Unknown Urine Culture - Preliminary Urine clean catch - Urine wright top Culture in progress. 05/01/23 20:36 Blood Culture - Preliminary Blood - Venous No growth after 24 hours. 05/01/23 20:36 Blood Culture - Preliminary Blood - Venous No growth after 24 hours. 04/30/23 16:05 Blood Culture - Preliminary Blood - Venous No growth after 48 hours. Assessment and Plan (1) Acute respiratory failure with hypoxia: Status: Acute (2) Left breast abscess: Status: Acute (3) Pneumonia: Status: Acute Plan 83-year-old female with a PMH significant for?non insulin-dependent diabetes 2, HTN, HLD, AFib on warfarin, COPD, and HFpEF who presents to the ED with a chief complaint of left hip pain but with multiple other complaints. Pt will be adm itted to the hospital for treatment and further evaluation of BEENA and acute hypoxic respiratory failure in the setting of community-acquired pneumonia. Acute hypoxic respiratory failure related to community-acquired pneumonia and multiple lung masses persistent cough productive of yellowish-green phlegm CXR concerning for multi focal hazy opacities in bilateral lungs, CT chest showe d multiple new pulmonary masses differential include infectious versus malignancy - seen by pulm - masses [place] [facility] [place] and initially was planned for biopsy but patient changed her mind. she is aware it could be malignancy but she does not want any biopsy or treatment. continue iv Ceftriaxone,and iv azithromycin, started 04/30/2023, continue supportive care with cough medication, incentive spirometry able to be weaned off of oxygen at rest, still with sob with minimal movement HFpEF diuretics held due to hypotension, only takes lasix prn at baseline seen by pulm - feels component of chf ECHO preserved EF, impaired relaxation. mild to moderate . seen by cardiology - does not feel patient is in CHF BEENA likely pre renal. treated with IV fluid creatinine improved from 1.50-0.86 Lasix, lisinopril and hydrochlorothiazide has been on hold follow BP closely Left breast wound open wound under her left breast crease that initially began as a ?blister? that ?popped? 2 weeks ago, is being followed in [facility] breast ultrasound showed no suspicious findings case discussed with Dr. Gar he recommend daily dressing with silver algi yulia and outpatient follow-up with wound clinic. Left hip pain Patient denies recent fall or trauma to the area Frontal left hip x-ray with no evidence for definite fracture Mild tenderness to palpation of left hip, no pain elicited with passive ROM or reduction in range of motion Most likely secondary to musculoskeletal strain, continue Tylenol. seen by PT - rec home with services Elevated INR INR bumped up to 8 on 05/02 s/p vit k - now INR 1.7 resume coumadin follow INR acute Normocytic anemia new onset normocytic anemia of 10.7/35.1, MCV of 85.2, down from H&H on 11/12/2022 of 14.1/44.2 No obvious signs of active bleeding iron studies show mixed pattern mild iron deficiency along with anemia chronic disease, normal B12, folate, stool for occult blood pending follow CBC, hematocrit above transfusion threshold Hypotension Patient was hypotensive as low as 84/35 treated with iv normal saline, midodrine and albumin 25% x2 BP improving continue to hold antihypertensives asymptomatic Paroxysmal AFib currently in sinus rhythm with premature atrial complexes continue to hold Nadolol for soft bp resume Coumadin follow INR COPD no acute exacerbation, continue DuoNeb, continue Breo Ellipta. Full Code DVT Prophylaxis: coumadin, mechanical devices attending - dr. ashraf dispo - PT rec home with PT. discussed with family, they don't feel like she is strong enough to return home at this time Pt. will require continued inpatient hospitalization for treatment of?acute hypoxic respiratory failure in the setting of community-acquired pneumonia Time Spent With Patient Time: Total time managing care of this patient today ____ minutes. Quality Stroke Does the patient have a stroke diagnosis?: No VTE Prior VTE?: No VTE Risk Level:: Medical - moderate - high VTE Device Contraindication: Treatment Not Indicated VTE Drug Contraindication: N/A - Med Ordered
[2023-05-03] MEDS: guaiFENesin LA 600 MG TAB.ER.12H PO ×2 (13:34→22:16)
[2023-05-03] MEDS: cefTRIAXone sodium 1 GM in 0.9 % Sodium Chloride 50 ML IV (15:28)
[2023-05-03] MEDS: Azithromycin 500 MG in 0.9 % Sodium Chloride 250 ML 125 MG IV (17:37)
[2023-05-03] MEDS: Warfarin Sodium 5 MG TABLET PO (17:38)
[2023-05-03 20:22] LABS: Vancomycin Random 7.2 mcg/mL (15-20)
[2023-05-04] VITALS (8 sets, daily range): BP systolic 114–123; BP diastolic 58–86; PULSE 66–77; RESP 18–22; TEMP 36.1–37.1; O2SAT 91–98
[2023-05-04] MEDS: Albuterol/Iprat 2.5/0.5MG 3 ML AMPUL.NEB INHALE ×4 (06:26→19:49)
[2023-05-04 08:13] LABS: INTERNATIONAL NORM RATIO 1.9 (0.9-1.1); Prothrombin Time 22.6 SEC (10.0-13.1)
[2023-05-04] MEDS: Fluticasone/Vilanterol 200/25 BLST.W.DEV 1 PUFF INHALE (08:24)
[2023-05-04] MEDS: 0.9 % Sodium Chloride Flush 3 ML SYRINGE IVFLUSH ×3 (09:06→20:51)
[2023-05-04] MEDS: guaiFENesin LA 600 MG TAB.ER.12H PO ×2 (09:06→20:50)
[2023-05-04] MEDS: Potassium Chloride ER 10 MEQ TABLET.ER PO (09:06)
[2023-05-04] MEDS: Collagenase Clostridium Hist. 30 GM TUBE 1 APPL TOPICAL (09:06)
--- NOTE | 2023-05-04 13:16 | HO.PM.IMPN ---
Subjective Subjective Date of Service: 05/04/23 Interval History: seen and examined this morning follow up for pneumonia having productive cough, no sob. still weak trying to ambulate Review of Systems Review of Systems: Yes all other systems are reviewed and are negative Constitutional Constitutional: Denies chills and Denies fever(s) ENT Ears, Nose, Mouth, and Throat: Denies dizziness Cardiovascular Cardiovascular: Denies chest pain, Denies palpitations and Denies dyspnea Respiratory Respiratory: Reports cough and Denies dyspnea Gastrointestinal Gastrointestinal: Denies abdominal pain Neurologic Neurologic: Denies dizziness Endocrine Endocrine: Denies palpitations Physical Exam Vital Signs: Vital Signs: Last Vital Signs Temp 97.3 F 05/04/23 07:21 Pulse 68 05/04/23 12:02 Resp 18 05/04/23 12:02 BP 114/64 05/04/23 07:21 Pulse Ox 91 L 05/04/23 07:21 O2 Del Method Room Air 05/04/23 07:21 O2 Flow Rate 1 05/03/23 07:27 BMI result Body Mass Index 35.6 Const: General: cooperative, comfortable, alert and awake Nutritional Appearance: overweight Orientation/consciousness: patient oriented x3 Resp: Other: rhonchi b/l Effort & Inspection: normal respiratory effort, able to speak in complete sentences, no respiratory distress and no use of accessory muscles Auscultation: rhonchi Cardio: Rate: regular rate Heart sounds: S1 normal heart sound present and S2 normal heart sound present GI: Inspection: No distended Palpation (GI): Soft to palpation and nontender Skin: Other: left breast dressing c/d/i Neuro: General: patient oriented x3, moves all extremities and CN's II-XI intact bilaterally Extrem: General: Yes no pedal edema Objective Data Active Medications Acetaminophen (Acetaminophen 325 Mg Tablet) 650 mg PO Q6H PRN PRN Reason: Pain, Mild (Pain Scale 1-3) Albuterol Sulfate (Albuterol Sulfate 90 Mcg 8 Gm Inhaler) 2 puff INHALE QID PRN PRN Reason: shortness of breath or wheezing Albuterol/Ipratropium (Albuterol/Iprat 2.5/0.5mg 3 Ml Ampul.Neb) 3 ml INHALE RQ4H WHILE AWAKE [facility] Last Admin: 05/04/23 12:00 Dose: 3 ml Documented By: KARINA Collagenase (Collagenase Clostridium Hist. 30 Gm Tube) 1 appl TOPICAL DAILY [facility]; Protocol Last Admin: 05/04/23 09:06 Dose: 1 appl Documented By: VICTORINO Dextrose (Dextrose 50 % 25 Gm/50 Ml Syringe) 25 gm IVPUSH Q15M PRN; Protocol PRN Reason: per Hypoglycemia Standing Ord. Docusate Sodium (Docusate Sodium 100 Mg Capsule) 100 mg PO DAILY PRN PRN Reason: Constipation Fluticasone/Vilanterol (Fluticasone/Vilanterol 200/25 Blst.W.Dev) 1 puff INHALE RDAILY [facility] Last Admin: 05/04/23 08:24 Dose: 1 puff Documented By: KARINA Glucose (Glucose Gel 15 Gm Gel..Gram.) 15 gm PO Q15M PRN; Protocol PRN Reason: per Hypoglycemia Standing Ord. Guaifenesin (Guaifenesin La 600 Mg Tab.Er.12h) 600 mg PO BID [facility] Last Admin: 05/04/23 09:06 Dose: 600 mg Documented By: VICTORINO Ceftriaxone Sodium 1 gm/ (Sodium Chloride) 50 mls @ 100 mls/hr IV Q24H [facility] Last Infusion: 05/03/23 16:09 Dose: 0 mls/hr Documented By: JUDY Azithromycin 500 mg/ Sodium (Chloride) 250 mls @ 125 mls/hr IV Q24H [facility] Last Infusion: 05/04/23 00:33 Dose: 0 mls/hr Documented By: MILDRED Insulin Human Lispro (Insulin Lispro 100 Unit/Ml 3 Ml Vial) 0 unit SUBCUT QIDACHS [facility]; Protocol Ondansetron HCl (Ondansetron Hcl 4 Mg/2 Ml Vial) 4 mg IVPUSH Q8H PRN PRN Reason: Nausea and Vomiting Pharmacy Consult (Consult Rx Perform Med Rec) 1 each MISCELLANE ONCE PRN PRN Reason: Consult order Potassium Chloride (Potassium Chloride Er 10 Meq Tablet.Er) 10 meq PO DAILY [facility] Last Admin: 05/04/23 09:06 Dose: 10 meq Documented By: VICTORINO Sodium Chloride (0.9 % Sodium Chloride Flush 3 Ml Syringe) 3 ml IVFLUSH QSHIFT [facility] Last Admin: 05/04/23 09:06 Dose: 3 ml Documented By: VICTORINO Warfarin Sodium (Warfarin Sodium 1.25 Mg Halftab) 1.25 mg PO DAILY@1800 [facility] Labs 05/03/23 06:30 05/03/23 06:30 Labs: Laboratory Results - last 24 hr 05/03/23 05/04/23 19:52 07:19 PT 22.6 H INR 1.9 H Random Vancomycin 7.2 L Microbiology Microbiology Results: Microbiology 04/30/23 Unknown Urine Culture - Final Urine clean catch - Urine wrigth top 05/01/23 20:36 Blood Culture - Preliminary Blood - Venous No growth after 48 hours. 05/01/23 20:36 Blood Culture - Preliminary Blood - Venous No growth after 48 hours. Assessment and Plan (1) Acute respiratory failure with hypoxia: Status: Acute (2) Pulmonary parenchymal mass: Status: Acute (3) Left breast abscess: Status: Acute (4) Pneumonia: Status: Acute Plan 83-year-old female with a PMH significant for?non insulin-dependent diabetes 2, HTN, HLD, AFib on warfarin, COPD, and HFpEF who presents to the ED with a chief complaint of left hip pain but with multiple other complaints. Pt will be admitted to the hospital for treatment and further evaluation of BEENA and acute hypoxic respiratory failure in the setting of community-acquired pneumonia. Acute hypoxic respiratory failure related to community-acquired pneumonia and multiple lung masses as well as underlying restrictive lung disease persistent cough CT chest showed multiple new pulmonary masses - seen by pulm - masses previously evaluated [place] [facility] [place] and initially was planned for biopsy but patient changed her mind. she is aware it could be malignancy but she does not want any biopsy or treatment. continue iv Ceftriaxone,and iv azithromycin, started 04/30/2023, continue supportive care with cough medication, incentive spirometry able to be weaned off of oxygen at rest, still with sob with minimal movement HFpEF diuretics held due to hypotension, only takes lasix prn at baseline seen by pulm - feels component of chf ECHO preserved EF, impaired relaxation. mild to moderate . seen by cardiology - does not feel patient is in CHF BEENA likely pre renal. treated with IV fluid creatinine improved from 1.50-0.86 Lasix, lisinopril and hydrochlorothiazide has been on hold follow BP closely Left breast wound open wound under her left breast crease that initially began as a ?blister? that ?popped? 2 weeks ago, is being followed in [facility] breast ultrasound showed no suspicious findings case discussed with Dr. Gar he recommend daily dressing with silver alginate and outpatient follow-up with wound clinic. Left hip pain Patient denies recent fall or trauma to the area Frontal left hip x-ray with no evidence for definite fracture Mild tenderness to palpation of left hip, no pain elicited with passive ROM or reduction in range of motion Most likely secondary to musculoskeletal strain, continue Tylenol. seen by PT - rec home with services Elevated INR INR bumped up to 8 on 05/02 s/p vit k - now INR 1.9 continue coumadin follow INR acute Normocytic anemia new onset normocytic anemia of 10.7/35.1, MCV of 85.2, down from H&H on 11/12/2022 of 14.1/44.2 No obvious signs of active bleeding iron studies show mixed pattern mild iron deficiency along with anemia chronic disease, normal B12, folate, stool for occult blood pending H/H stable, hematocrit above transfusion threshold Hypotension Patient was hypotensive as low as 84/35 treated with iv normal saline, midodrine and albumin 25% x2 BP improving continue to hold antihypertensives asymptomatic Paroxysmal AFib currently in sinus rhythm with premature atrial complexes continue to hold Nadolol for soft bp resume Coumadin follow INR DM glipizide, metformin, alogliptin on hold SSI, POCs, ada diet COPD no acute exacerbation, continue DuoNeb, continue Breo Ellipta. morbid obesity BMI 35.6 likely contributing to respiratory symptoms/restirictive lung disease Full Code DVT Prophylaxis: coumadin, mechanical devices attending - dr. Hartman dispo - PT rec STR, bed search underway Pt. will require continued inpatient hospitalization for treatment of?acute hypoxic respiratory failure in the setting of community-acquired pneumonia Time Spent With Patient Time: Total time managing care of this patient today ____ minutes. Quality Stroke Does the patient have a stroke diagnosis?: No VTE Prior VTE?: No VTE Risk Level:: Medical - moderate - high VTE Device Contraindication: Treatment Not Indicated VTE Drug Contraindication: N/A - Med Ordered
--- NOTE | 2023-05-04 13:22 | MHC.CM.PN ---
Notified by medical that PT re-evaled Pt and is now recommending STR. Medical indicates Pt and family both in agreement. Will approach Pt/family for choices. Pt has managed MCR (Melvin) which may present a challenge for STR transition over the W/E; medical notified and in agreement.
[2023-05-04] MEDS: cefTRIAXone sodium 1 GM in 0.9 % Sodium Chloride 50 ML IV (16:26)
[2023-05-04] MEDS: Insulin Lispro 100 UNIT/ML 3 ML VIAL SUBCUT ×2 (16:39→20:51)
[2023-05-04] MEDS: Warfarin Sodium 1.25 MG HALFTAB PO (17:33)
[2023-05-04] MEDS: Azithromycin 500 MG in 0.9 % Sodium Chloride 250 ML 125 MG IV (17:33)
[2023-05-05] VITALS (7 sets, daily range): BP systolic 119–131; BP diastolic 58–76; PULSE 68–82; RESP 16–22; TEMP 36.3–36.9; O2SAT 88–94
[2023-05-05 07:26] LABS: INTERNATIONAL NORM RATIO 2.6 (0.9-1.1); Prothrombin Time 30.8 SEC (10.0-13.1)
[2023-05-05] MEDS: Albuterol/Iprat 2.5/0.5MG 3 ML AMPUL.NEB INHALE ×2 (07:56→11:38)
[2023-05-05] MEDS: guaiFENesin LA 600 MG TAB.ER.12H PO (08:20)
[2023-05-05] MEDS: Potassium Chloride ER 10 MEQ TABLET.ER PO (08:20)
[2023-05-05] MEDS: Insulin Lispro 100 UNIT/ML 3 ML VIAL SUBCUT ×2 (08:20→11:37)
[2023-05-05] MEDS: 0.9 % Sodium Chloride Flush 3 ML SYRINGE IVFLUSH ×2 (08:21→22:05)
[2023-05-05] MEDS: Collagenase Clostridium Hist. 30 GM TUBE 1 APPL TOPICAL (08:21)
--- NOTE | 2023-05-05 10:29 | HO.PM.IMPN ---
Subjective Subjective Date of Service: 05/05/23 Interval History: seen and examined this morning follow up for pneumonia feeling tired today. still with productive cough. no sob at rest Review of Systems Review of Systems: Yes all other systems are reviewed and are negative Constitutional Constitutional: Denies chills and Denies fever(s) Cardiovascular Cardiovascular: Denies chest pain and Denies palpitations Respiratory Respiratory: Reports cough Gastrointestinal Gastrointestinal: Denies abdominal pain, Denies nausea and Denies vomiting Endocrine Endocrine: Denies palpitations Physical Exam Vital Signs: Vital Signs: Last Vital Signs Temp 98.4 F 05/05/23 07:25 Pulse 75 05/05/23 07:57 Resp 16 05/05/23 07:57 BP 120/68 05/05/23 07:25 Pulse Ox 91 L 05/05/23 07:25 O2 Del Method Room Air 05/05/23 07:25 O2 Flow Rate 1 05/03/23 07:27 BMI result Body Mass Index 35.6 Const: General: cooperative, comfortable, alert and awake Nutritional Appearance: overweight Orientation/consciousness: patient oriented x3 Resp: Other: rhonchi b/l Effort & Inspection: normal respiratory effort, able to speak in complete sentences, no respiratory distress and no use of accessory muscles Auscultation: rhonchi Cardio: Rate: regular rate Heart sounds: S1 normal heart sound present and S2 normal heart sound present GI: Inspection: No distended Palpation (GI): Soft to palpation and nontender Skin: Other: left breast dressing c/d/i Neuro: General: patient oriented x3, moves all extremities and CN's II-XI intact bilaterally Extrem: General: Yes no pedal edema Objective Data Active Medications Acetaminophen (Acetaminophen 325 Mg Tablet) 650 mg PO Q6H PRN PRN Reason: Pain, Mild (Pain Scale 1-3) Albuterol Sulfate (Albuterol Sulfate 90 Mcg 8 Gm Inhaler) 2 puff INHALE QID PRN PRN Reason: shortness of breath or wheezing Albuterol/Ipratropium (Albuterol/Iprat 2.5/0.5mg 3 Ml Ampul.Neb) 3 ml INHALE RQ4H WHILE AWAKE [facility] Last Admin: 05/05/23 07:56 Dose: 3 ml Documented By: DEANA Collagenase (Collagenase Clostridium Hist. 30 Gm Tube) 1 appl TOPICAL DAILY [facility]; Protocol Last Admin: 05/05/23 08:21 Dose: 1 appl Documented By: SHANAE Dextrose (Dextrose 50 % 25 Gm/50 Ml Syringe) 25 gm IVPUSH Q15M PRN; Protocol PRN Reason: per Hypoglycemia Standing Ord. Docusate Sodium (Docusate Sodium 100 Mg Capsule) 100 mg PO DAILY PRN PRN Reason: Constipation Fluticasone/Vilanterol (Fluticasone/Vilanterol 200/25 Blst.W.Dev) 1 puff INHALE RDAILY [facility] Last Admin: 05/05/23 07:57 Dose: Not Given Documented By: DEANA Non-Admin Reason: Medication Discontinued Glucose (Glucose Gel 15 Gm Gel..Gram.) 15 gm PO Q15M PRN; Protocol PRN Reason: per Hypoglycemia Standing Ord. Guaifenesin (Guaifenesin La 600 Mg Tab.Er.12h) 1,200 mg PO BID [facility] Ceftriaxone Sodium 1 gm/ (Sodium Chloride) 50 mls @ 100 mls/hr IV Q24H [facility] Last Infusion: 05/04/23 17:24 Dose: 0 mls/hr Documented By: VICTORINO Azithromycin 500 mg/ Sodium (Chloride) 250 mls @ 125 mls/hr IV Q24H [facility] Last Infusion: 05/04/23 19:51 Dose: 0 mls/hr Documented By: MILDRED Insulin Human Lispro (Insulin Lispro 100 Unit/Ml 3 Ml Vial) 0 unit SUBCUT QIDACHS [facility]; Protocol Last Admin: 05/05/23 08:20 Dose: 4 unit Documented By: SHANAE Ondansetron HCl (Ondansetron Hcl 4 Mg/2 Ml Vial) 4 mg IVPUSH Q8H PRN PRN Reason: Nausea and Vomiting Pharmacy Consult (Consult Rx Perform Med Rec) 1 each MISCELLANE ONCE PRN PRN Reason: Consult order Potassium Chloride (Potassium Chloride Er 10 Meq Tablet.Er) 10 meq PO DAILY [facility] Last Admin: 05/05/23 08:20 Dose: 10 meq Documented By: SHANAE Sodium Chloride (0.9 % Sodium Chloride Flush 3 Ml Syringe) 3 ml IVFLUSH QSHIFT [facility] Last Admin: 05/05/23 08:21 Dose: 3 ml Documented By: SHANAE Warfarin Sodium (Warfarin Sodium 1.25 Mg Halftab) 1.25 mg PO DAILY@1800 [facility] Last Admin: 05/04/23 17:33 Dose: 1.25 mg Documented By: VICTORINO Labs 05/03/23 06:30 05/03/23 06:30 Labs: Laboratory Results - last 24 hr 05/04/23 05/04/23 05/04/23 14:02 16:35 20:24 PT INR POC Glucose 206 H 171 H 193 H 05/05/23 05/05/23 06:01 07:12 PT 30.8 H INR 2.6 H POC Glucose 207 H Microbiology Microbiology Results: Microbiology 04/30/23 Unknown Urine Culture - Final Urine clean catch - Urine wright top Assessment and Plan (1) Acute respiratory failure with hypoxia: Status: Acute (2) Pulmonary parenchymal mass: Status: Acute (3) Left breast abscess: Status: Acute Plan 83-year-old female with a PMH significant for?non insulin-dependent diabetes 2, HTN, HLD, AFib on warfarin, COPD, and HFpEF who presents to the ED with a chief complaint of left hip pain but with multiple other complaints. Pt will be admitted to the hospital for treatment and further evaluation of BEENA and acute hypoxic respiratory failure in the setting of community-acquired pneumonia. Acute hypoxic respiratory failure related to community-acquired pneumonia and multiple lung masses as well as underlying restrictive lung disease persistent cough, sob with movement CT chest showed multiple new pulmonary masses - seen by pulm - masses previously evaluated [place] thoracic [place] [facility] [place] and initially was planned for biopsy but patient changed her mind. she is aware it could be malignancy but she does not want any biopsy or treatment. this was discussed with pt and both daughters in detail at bedside continue iv Ceftriaxone,and iv azithromycin, started 04/30/2023, day 04/13 continue supportive care with cough medication, incentive spirometry able to be weaned off of oxygen HFpEF diuretics held due to hypotension, only takes lasix prn at baseline seen by pulm - feels component of chf ECHO preserved EF, impaired relaxation. mild to moderate . seen by cardiology - does not feel patient is in CHF BEENA likely pre renal. treated with IV fluid creatinine improved from 1.50-0.86 Lasix, lisinopril and hydrochlorothiazide has been on hold follow BP closely Left breast wound open wound under her left breast crease that initially began as a ?blister? that ?popped? 2 weeks ago, is being followed in [facility] breast ultrasound showed no suspicious findings case discussed with Dr. Gar he recommend daily dressing with silver alginate and outpatient follow-up with wound clinic. Left hip pain Patient denies recent fall or trauma to the area Frontal left hip x-ray with no evidence for definite fracture Mild tenderness to palpation of left hip, no pain elicited with passive ROM or reduction in range of motion Most likely secondary to musculoskeletal strain, continue Tylenol. seen by PT - rec home with services Elevated INR INR bumped up to 8 on 05/02 s/p vit k INR 2.6 today continue coumadin follow INR acute Normocytic anemia new onset normocytic anemia of 10.7/35.1, MCV of 85.2, down from H&H on 11/12/2022 of 14.1/44.2 No obvious signs of active bleeding iron studies show mixed pattern mild iron deficiency along with anemia chronic disease, normal B12, folate, stool for occult blood pending H/H stable, hematocrit above transfusion threshold Hypotension Patient was hypotensive as low as 84/35 treated with iv normal saline, midodrine and albumin 25% x2 BP starting to improve resume antihypertensives as bp allows asymptomatic Paroxysmal AFib currently in sinus rhythm with premature atrial complexes continue to hold Nadolol for soft bp resume Coumadin follow INR DM glipizide, metformin, alogliptin on hold SSI, POCs, ada diet COPD no acute exacerbation, continue DuoNeb, continue Breo Ellipta. morbid obesity BMI 35.6 likely contributing to respiratory symptoms/restrictive lung disease Full Code DVT Prophylaxis: coumadin, mechanical devices attending - dr. Rodriguez dispo - PT rec STR Pt. will require continued inpatient hospitalization for treatment of?acute hypoxic respiratory failure in the setting of community-acquired pneumonia Time Spent With Patient Time: Total time managing care of this patient today ____ minutes. Quality Stroke Does the patient have a stroke diagnosis?: No VTE Prior VTE?: No VTE Risk Level:: Medical - moderate - high VTE Device Contraindication: Treatment Not Indicated VTE Drug Contraindication: N/A - Med Ordered
[2023-05-05] MEDS: cefTRIAXone sodium 1 GM in 0.9 % Sodium Chloride 50 ML IV (16:45)
[2023-05-05] MEDS: Azithromycin 500 MG in 0.9 % Sodium Chloride 250 ML 125 MG IV (18:12)
[2023-05-05] MEDS: Warfarin Sodium 1.25 MG HALFTAB PO (18:13)
[2023-05-06] VITALS (9 sets, daily range): BP systolic 126–136; BP diastolic 58–77; PULSE 64–79; RESP 17–20; TEMP 36.3–36.8; O2SAT 90–98
[2023-05-06 07:32] LABS: Prothrombin Time 35.9 SEC (10.0-13.1)
[2023-05-06] MEDS: Albuterol/Iprat 2.5/0.5MG 3 ML AMPUL.NEB INHALE ×4 (07:40→19:50)
[2023-05-06] MEDS: Fluticasone/Vilanterol 200/25 BLST.W.DEV 1 PUFF INHALE ×2 (07:40→07:41)
[2023-05-06] MEDS: Insulin Lispro 100 UNIT/ML 3 ML VIAL SUBCUT ×3 (08:59→20:21)
[2023-05-06] MEDS: Collagenase Clostridium Hist. 30 GM TUBE 1 APPL TOPICAL (09:00)
[2023-05-06] MEDS: Potassium Chloride ER 10 MEQ TABLET.ER PO (09:00)
[2023-05-06] MEDS: 0.9 % Sodium Chloride Flush 3 ML SYRINGE IVFLUSH ×3 (09:01→20:21)
--- NOTE | 2023-05-06 11:02 | HO.PM.IMPN ---
Subjective Subjective Date of Service: 05/06/23 Interval History: seen and examined this morning follow up for pneumonia feeling tired today. still with productive cough. no sob at rest Review of Systems Review of Systems: Yes all other systems are reviewed and are negative Constitutional Constitutional: Denies chills and Denies fever(s) Cardiovascular Cardiovascular: Denies chest pain and Denies palpitations Respiratory Respiratory: Reports cough Gastrointestinal Gastrointestinal: Denies abdominal pain, Denies nausea and Denies vomiting Endocrine Endocrine: Denies palpitations Physical Exam Vital Signs: Vital Signs: Last Vital Signs Temp 98.3 F 05/06/23 07:15 Pulse 77 05/06/23 07:43 Resp 20 05/06/23 07:43 BP 126/58 L 05/06/23 07:15 Pulse Ox 95 05/06/23 07:15 O2 Del Method Nasal Cannula 05/06/23 07:15 O2 Flow Rate 2 05/06/23 07:15 BMI result Body Mass Index 35.6 Appearing in no acute distress lung sounds rhonchi heart regular rate rhythm, clear S1, S2 positive bowel sounds, abdomen is soft, nontender neuro patient is alert x3, no focal deficits Objective Data Active Medications Acetaminophen (Acetaminophen 325 Mg Tablet) 650 mg PO Q6H PRN PRN Reason: Pain, Mild (Pain Scale 1-3) Albuterol Sulfate (Albuterol Sulfate 90 Mcg 8 Gm Inhaler) 2 puff INHALE QID PRN PRN Reason: shortness of breath or wheezing Albuterol/Ipratropium (Albuterol/Iprat 2.5/0.5mg 3 Ml Ampul.Neb) 3 ml INHALE RQ4H WHILE AWAKE [facility] Last Admin: 05/06/23 07:40 Dose: 3 ml Documented By: MELITON Collagenase (Collagenase Clostridium Hist. 30 Gm Tube) 1 appl TOPICAL DAILY [facility]; Protocol Last Admin: 05/06/23 09:00 Dose: 1 appl Documented By: MARIELY Dextrose (Dextrose 50 % 25 Gm/50 Ml Syringe) 25 gm IVPUSH Q15M PRN; Protocol PRN Reason: per Hypoglycemia Standing Ord. Docusate Sodium (Docusate Sodium 100 Mg Capsule) 100 mg PO DAILY PRN PRN Reason: Constipation Fluticasone/Vilanterol (Fluticasone/Vilanterol 200/25 Blst.W.Dev) 1 puff INHALE RDAILY [facility] Last Admin: 05/06/23 07:41 Dose: 1 puff Documented By: MELITON Glucose (Glucose Gel 15 Gm Gel..Gram.) 15 gm PO Q15M PRN; Protocol PRN Reason: per Hypoglycemia Standing Ord. Guaifenesin (Guaifenesin La 600 Mg Tab.Er.12h) 1,200 mg PO BID [facility] Last Admin: 05/06/23 09:00 Dose: 1,200 mg Documented By: MARIELY Ceftriaxone Sodium 1 gm/ (Sodium Chloride) 50 mls @ 100 mls/hr IV Q24H [facility] Last Infusion: 05/05/23 18:12 Dose: 0 mls/hr Documented By: SHANAE Azithromycin 500 mg/ Sodium (Chloride) 250 mls @ 125 mls/hr IV Q24H [facility] Last Infusion: 05/06/23 00:30 Dose: 0 mls/hr Documented By: BETTY Insulin Human Lispro (Insulin Lispro 100 Unit/Ml 3 Ml Vial) 0 unit SUBCUT QIDACHS [facility]; Protocol Last Admin: 05/06/23 08:59 Dose: 2 unit Documented By: MARIELY Ondansetron HCl (Ondansetron Hcl 4 Mg/2 Ml Vial) 4 mg IVPUSH Q8H PRN PRN Reason: Nausea and Vomiting Pharmacy Consult (Consult Rx Perform Med Rec) 1 each MISCELLANE ONCE PRN PRN Reason: Consult order Potassium Chloride (Potassium Chloride Er 10 Meq Tablet.Er) 10 meq PO DAILY [facility] Last Admin: 05/06/23 09:00 Dose: 10 meq Documented By: MARIELY Sodium Chloride (0.9 % Sodium Chloride Flush 3 Ml Syringe) 3 ml IVFLUSH QSHIFT [facility] Last Admin: 05/06/23 09:01 Dose: 3 ml Documented By: MARIELY Warfarin Sodium (Warfarin Sodium 1.25 Mg Halftab) 1.25 mg PO DAILY@1800 [facility] Last Admin: 05/05/23 18:13 Dose: 1.25 mg Documented By: SHANAE Labs 05/03/23 06:30 05/03/23 06:30 Labs: Laboratory Results - last 24 hr 05/05/23 05/05/23 05/05/23 11:07 15:40 20:32 PT INR POC Glucose 172 H 137 H 143 H 05/06/23 05/06/23 05:59 07:42 PT 35.9 H INR 3.0 H POC Glucose 164 H Microbiology Microbiology Results: Microbiology 04/30/23 16:05 Blood Culture - Final Blood - Venous No growth after 5 days. Assessment and Plan (1) Acute respiratory failure with hypoxia: Status: Acute (2) Pulmonary parenchymal mass: Status: Acute (3) Left breast abscess: Status: Acute Plan 83-year-old female with a PMH significant for?non insulin-dependent diabetes 2, HTN, HLD, AFib on warfarin, COPD, and HFpEF who presents to the ED with a chief complaint of left hip pain but with multiple other complaints. Pt will be admitted to the hospital for treatment and further evaluation of BEENA and acute hypoxic respiratory failure in the setting of community-acquired pneumonia. Acute hypoxic respiratory failure related to community-acquired pneumonia and multiple lung masses as well as underlying restrictive lung disease persistent cough, sob with movement CT chest showed multiple new pulmonary masses - seen by pulm - masses previously evaluated by thoracic surgery at [facility] [place] in April 2022 and initially was planned for biopsy but patient changed her mind. she is aware it could be malignancy but she does not want any biopsy or treatment. this was discussed with pt and both daughters in detail at bedside continue iv Ceftriaxone, and iv azithromycin, started 04/30/2023, cough medication, incentive spirometry HFpEF diuretics held due to hypotension, only takes lasix prn at baseline ECHO preserved EF, impaired relaxation. mild to moderate . seen by cardiology - does not feel patient is in CHF BEENA likely pre renal. treated with IV fluid creatinine improved from 1.50-0.86 Lasix, lisinopril and hydrochlorothiazide has been on hold follow BP closely Left breast wound open wound under her left breast crease that initially began as a ?blister? that ?popped? 2 weeks ago, is being followed [facility] breast ultrasound showed no suspicious findings case discussed with Dr. Gar he recommend daily dressing with silver alginate and outpatient follow-up with wound clinic. Left hip pain Patient denies recent fall or trauma to the area Frontal left hip x-ray with no evidence for definite fracture Mild tenderness to palpation of left hip, no pain elicited with passive ROM or reduction in range of motion Most likely secondary to musculoskeletal strain, continue Tylenol. seen by PT - rec home with services Elevated INR INR bumped up to 8 on 05/02 s/p vit k INR 3.0 today continue coumadin follow INR acute Normocytic anemia new onset normocytic anemia of 10.7/35.1, MCV of 85.2, down from H&H on 11/12/2022 of 14.1/44.2 No obvious signs of active bleeding iron studies show mixed pattern mild iron deficiency along with anemia chronic disease, normal B12, folate, stool for occult blood pending H/H stable, hematocrit above transfusion threshold Hypotension Patient was hypotensive as low as 84/35 treated with iv normal saline, midodrine and albumin 25% x2 BP starting to improve resume antihypertensives as bp allows asymptomatic Paroxysmal AFib currently in sinus rhythm with premature atrial complexes continue to hold Nadolol for soft bp resume Coumadin follow INR DM glipizide, metformin, alogliptin on hold SSI, POCs, ada diet COPD no acute exacerbation, continue DuoNeb, continue Breo Ellipta. morbid obesity BMI 35.6 likely contributing to respiratory symptoms/restrictive lung disease Full Code DVT Prophylaxis: coumadin, mechanical devices attending - dr. Benitez dispo - PT rec [facility] when bed available continued hospitalization for treatment of?acute hypoxic respiratory failure in the setting of community-acquired pneumonia Time Spent With Patient Time: Total time managing care of this patient today ____ minutes. Quality Stroke Does the patient have a stroke diagnosis?: No VTE Prior VTE?: No VTE Risk Level:: Medical - moderate - high VTE Device Contraindication: Treatment Not Indicated VTE Drug Contraindication: N/A - Med Ordered
--- NOTE | 2023-05-06 11:48 | MHC.CM.PN ---
Addendum entered by Tita Daniels 05/06/23 13:47: This CM spoke with pts daughters Mitzi and Amarilis and they would like their mother to go to [facility]. [facility] updated in [facility]. Original Note: EMR reviewed and per MD rounds, pt is medically cleared for D/C. Per PT recommendations, pt to go to [facility]. [facility] and [facility] willing to accept pt. This CM spoke to pt and she asked this CM to speak to her daughter Mitzi regarding which facility. This CM called and spoke with Mitzi who requested pt go to [facility] or [facility] for rehab. This CM explained that they likely wouldn't be able to accept pt for acute rehab but this CM would try and let her know. [facility] and [facility] unable to accommodate pt, this was relayed to Mitzi. Mitzi stated she would call her sister Amarilis to discuss which facility they would like for STR ([facility] vs [facility]). This CM has waited x 2 hours and has not heard back from Mitzi, call placed to Mitzi to check, and voicemail left. CM awaiting return call.
[2023-05-06] MEDS: cefTRIAXone sodium 1 GM in 0.9 % Sodium Chloride 50 ML IV (16:06)
[2023-05-06] MEDS: Azithromycin 500 MG in 0.9 % Sodium Chloride 250 ML 125 MG IV (18:35)
[2023-05-06] MEDS: Warfarin Sodium 1.25 MG HALFTAB PO (18:36)
[2023-05-07 04:07] VITALS: BP 128/64; PULSE 81; RESP 20; TEMP 37.2; O2SAT 95
[2023-05-07 07:21] VITALS: BP 122/69; PULSE 66; RESP 20; TEMP 36.1; O2SAT 96
[2023-05-07] MEDS: Albuterol/Iprat 2.5/0.5MG 3 ML AMPUL.NEB INHALE ×2 (08:05→15:42)
[2023-05-07] MEDS: Fluticasone/Vilanterol 200/25 BLST.W.DEV 1 PUFF INHALE (08:05)
[2023-05-07 08:42] VITALS: PULSE 83; RESP 18; O2SAT 91
[2023-05-07] MEDS: 0.9 % Sodium Chloride Flush 3 ML SYRINGE IVFLUSH ×3 (08:58→21:20)
[2023-05-07] MEDS: Potassium Chloride ER 10 MEQ TABLET.ER PO (08:58)
[2023-05-07] MEDS: Collagenase Clostridium Hist. 30 GM TUBE 1 APPL TOPICAL (08:58)
--- NOTE | 2023-05-07 09:00 | HO.PM.IMPN ---
Subjective Subjective Date of Service: 05/07/23 Interval History: seen and examined this morning follow up for pneumonia feeling tired today. still with productive cough. no sob at rest Review of Systems Review of Systems: Yes all other systems are reviewed and are negative Constitutional Constitutional: Denies chills and Denies fever(s) Cardiovascular Cardiovascular: Denies chest pain and Denies palpitations Respiratory Respiratory: Reports cough Gastrointestinal Gastrointestinal: Denies abdominal pain, Denies nausea and Denies vomiting Endocrine Endocrine: Denies palpitations Physical Exam Vital Signs: Vital Signs: Last Vital Signs Temp 97.0 F 05/07/23 07:21 Pulse 83 05/07/23 08:42 Resp 18 05/07/23 08:42 BP 122/69 05/07/23 07:21 Pulse Ox 96 05/07/23 07:21 O2 Del Method Nasal Cannula 05/07/23 07:21 O2 Flow Rate 2 05/07/23 07:21 BMI result Body Mass Index 35.6 Appearing in no acute distress lung sounds are clear to auscultation heart regular rate rhythm, clear S1, S2 positive bowel sounds, abdomen is soft, nontender neuro patient is alert x3, no focal deficits Objective Data Active Medications Acetaminophen (Acetaminophen 325 Mg Tablet) 650 mg PO Q6H PRN PRN Reason: Pain, Mild (Pain Scale 1-3) Albuterol Sulfate (Albuterol Sulfate 90 Mcg 8 Gm Inhaler) 2 puff INHALE QID PRN PRN Reason: shortness of breath or wheezing Albuterol/Ipratropium (Albuterol/Iprat 2.5/0.5mg 3 Ml Ampul.Neb) 3 ml INHALE RQ4H WHILE AWAKE [facility] Last Admin: 05/07/23 08:05 Dose: 3 ml Documented By: MELITON Collagenase (Collagenase Clostridium Hist. 30 Gm Tube) 1 appl TOPICAL DAILY [facility]; Protocol Last Admin: 05/06/23 09:00 Dose: 1 appl Documented By: MARIELY Dextrose (Dextrose 50 % 25 Gm/50 Ml Syringe) 25 gm IVPUSH Q15M PRN; Protocol PRN Reason: per Hypoglycemia Standing Ord. Docusate Sodium (Docusate Sodium 100 Mg Capsule) 100 mg PO DAILY PRN PRN Reason: Constipation Fluticasone/Vilanterol (Fluticasone/Vilanterol 200/25 Blst.W.Dev) 1 puff INHALE RDAILY [facility] Last Admin: 05/07/23 08:05 Dose: 1 puff Documented By: MELITON Glucose (Glucose Gel 15 Gm Gel..Gram.) 15 gm PO Q15M PRN; Protocol PRN Reason: per Hypoglycemia Standing Ord. Guaifenesin (Guaifenesin La 600 Mg Tab.Er.12h) 1,200 mg PO BID [facility] Last Admin: 05/06/23 20:21 Dose: 1,200 mg Documented By: LUIS Ceftriaxone Sodium 1 gm/ (Sodium Chloride) 50 mls @ 100 mls/hr IV Q24H [facility] Last Infusion: 05/06/23 19:26 Dose: 0 mls/hr Documented By: MARIELY Azithromycin 500 mg/ Sodium (Chloride) 250 mls @ 125 mls/hr IV Q24H [facility] Last Infusion: 05/06/23 21:48 Dose: 0 mls/hr Documented By: LUIS Insulin Human Lispro (Insulin Lispro 100 Unit/Ml 3 Ml Vial) [facility] Protocol Last Admin: 05/07/23 08:04 Dose: Not Given Documented By: CLEMENTE Non-Admin Reason: No Insulin Coverage Ondansetron HCl (Ondansetron Hcl 4 Mg/2 Ml Vial) 4 mg IVPUSH Q8H PRN PRN Reason: Nausea and Vomiting Pharmacy Consult (Consult Rx Perform Med Rec) 1 each MISCELLANE ONCE PRN PRN Reason: Consult order Potassium Chloride (Potassium Chloride Er 10 Meq Tablet.Er) 10 meq PO DAILY [facility] Last Admin: 05/06/23 09:00 Dose: 10 meq Documented By: MARIELY Sodium Chloride (0.9 % Sodium Chloride Flush 3 Ml Syringe) 3 ml IVFLUSH QSHIFT [facility] Last Admin: 05/06/23 20:21 Dose: 3 ml Documented By: LUIS Warfarin Sodium (Warfarin Sodium 1.25 Mg Halftab) 1.25 mg PO DAILY@1800 [facility] Last Admin: 05/06/23 18:36 Dose: 1.25 mg Documented By: MARIELY Labs 05/03/23 06:30 05/03/23 06:30 Labs: Laboratory Results - last 24 hr 05/06/23 05/06/23 05/07/23 11:14 19:34 06:05 PT 50.9 H INR 4.2 H POC Glucose 162 H 155 H 05/07/23 07:54 PT INR POC Glucose 149 H Microbiology Microbiology Results: Microbiology 05/01/23 20:36 Blood Culture - Final Blood - Venous No growth after 5 days. 05/01/23 20:36 Blood Culture - Final Blood - Venous No growth after 5 days. Assessment and Plan (1) Acute respiratory failure with hypoxia: Status: Acute (2) Pulmonary parenchymal mass: Status: Acute (3) Left breast abscess: Status: Acute Plan 83-year-old female with a PMH significant for?non insulin-dependent diabetes 2, HTN, HLD, AFib on warfarin, COPD, and HFpEF who presents to the ED with a chief complaint of left hip pain but with multiple other complaints. Pt will be admitted to the hospital for treatment and further evaluation of BEENA and acute hypoxic respiratory failure in the setting of community-acquired pneumonia. Acute hypoxic respiratory failure related to community-acquired pneumonia and multiple lung masses as well as underlying restrictive lung disease persistent cough, sob with movement multiple new pulmonary masses on CT, patient and family previously declined further treatment or workup for masses IV rocephin and azithromycin cough medication, incentive spirometry HFpEF continue home lasix ECHO preserved EF, impaired relaxation. mild to moderate . seen by cardiology - does not feel patient is in CHF BEENA. Resolved likely pre renal. treated with IV fluid lisinopril and hydrochlorothiazide have been on hold, restart as BP allows follow BP closely Left breast wound open wound under her left breast crease that initially began as a ?blister? that ?popped? 2 weeks ago, is being followed in [facility] breast ultrasound showed no suspicious findings Gen surg rec>daily dressing with silver alginate and outpatient follow-up with wound clinic. Left hip pain Patient denies recent fall or trauma to the area left hip x-ray with no evidence for definite fracture Most likely secondary to musculoskeletal strain, continue Tylenol. Supratherapeutic INR INR 4.2 today hold coumadin follow INR acute Normocytic anemia No obvious signs of active bleeding iron studies show mixed pattern mild iron deficiency along with anemia chronic disease, normal B12, folate, stool for occult blood pending H/H stable, hematocrit above transfusion threshold Hypotension Patient was hypotensive as low as 84/35 treated with iv normal saline, midodrine and albumin 25% x2 resume antihypertensives as bp allows asymptomatic Paroxysmal AFib currently in sinus rhythm with premature atrial complexes continue to hold Nadolol for soft bp resume Coumadin follow INR DM SSI, ada diet COPD no acute exacerbation continue DuoNeb continue Breo Ellipta. morbid obesity BMI 35.6 likely contributing to respiratory symptoms/restrictive lung disease Full Code DVT Prophylaxis: coumadin, mechanical devices attending - dr. Bedolla dispo - PT rec [facility] when bed available continued hospitalization for treatment of?acute hypoxic respiratory failure in the setting of community-acquired pneumonia Time Spent With Patient Time: Total time managing care of this patient today ____ minutes. Quality Stroke Does the patient have a stroke diagnosis?: No VTE Prior VTE?: No VTE Risk Level:: Medical - moderate - high VTE Device Contraindication: Treatment Not Indicated VTE Drug Contraindication: N/A - Med Ordered
[2023-05-07] MEDS: Insulin Lispro 100 UNIT/ML 3 ML VIAL SUBCUT ×2 (11:56→16:37)
[2023-05-07 15:28] VITALS: BP 134/69; PULSE 73; RESP 16; TEMP 36.8; O2SAT 98
[2023-05-07 15:43] VITALS: PULSE 76; RESP 16; O2SAT 95
[2023-05-07] MEDS: cefTRIAXone sodium 1 GM in 0.9 % Sodium Chloride 50 ML IV (16:35)
[2023-05-07] MEDS: Azithromycin 500 MG in 0.9 % Sodium Chloride 250 ML 125 MG IV (17:40)
[2023-05-07] MEDS: Acetaminophen 325 MG TABLET 650 MG PO (17:44)
[2023-05-08] VITALS: BP 119/59; PULSE 92; RESP 20; TEMP 36.5; O2SAT 96
[2023-05-08 03:42] VITALS: BP 132/60; PULSE 74; RESP 20; TEMP 36.7; O2SAT 95
[2023-05-08 07:27] VITALS: BP 135/82; PULSE 76; RESP 18; TEMP 36.2; O2SAT 97
[2023-05-08] MEDS: 0.9 % Sodium Chloride Flush 3 ML SYRINGE IVFLUSH ×2 (08:14→17:27)
--- NOTE | 2023-05-08 09:15 | PM.UROCN ---
History of Present Illness Consult details Consult date: 05/08/23 Narrative: 83-year-old female with a PMH significant for?non insulin-dependent diabetes 2, HTN, HLD, AFib on warfarin, COPD, and HFpEF who presents to the ED with a chief complaint of left hip pain but with multiple other complaints. Pt will be admitted to the hospital for treatment and further evaluation of BEENA and acute hypoxic respiratory failure in the setting of community-acquired pneumonia. Consult to Urology for hematuria. Supra therapeutic inR, PT. Review of chart - prior positive urine c/s 03/29/23 Review of Systems Review of Systems: 10 point ROS negative other than stated in HPI [facility] Past Medical History Medical History Benign essential hypertension Cerebellar hemorrhage COPD (chronic obstructive pulmonary disease) Diabetes mellitus Non-rheumatic aortic stenosis Obesity (BMI 30-39.9) Paroxysmal atrial flutter Pure hypercholesterolemia Restrictive lung disease Family History Family History Other Family history non-contributory Surgical History Surgical History No significant past surgical history Social History Social History Household Members: Family Household Members Other:: DaughterAmarilis, her and kids. Downstairs is her other daughter. Housing: House Do you presently have visiting nurse or other home services: Yes Alcohol intake: never Patient Tobacco Use Status: Former Tobacco user Quit Date: 3+ yrs ago e-Cigarette/Vaping Use: Never Used Second Hand Smoke Exposure: Yes service: No Current occupational status: retired Cognitive needs: Yes (walker) Hearing needs: No Vision needs: Yes (glasses) Meds Allergies Allergy/AdvReac Type Severity Reaction Status Date / Time No Known Allergies Allergy Verified 04/30/23 13:36 [No Known Allergies*] Active Medications: Current Medications Acetaminophen (Acetaminophen 325 Mg Tablet) 650 mg PO Q6H PRN PRN Reason: Pain, Mild (Pain Scale 1-3) Last Admin: 05/07/23 17:44 Dose: 650 mg Albuterol Sulfate (Albuterol Sulfate 90 Mcg 8 Gm Inhaler) 2 puff INHALE QID PRN PRN Reason: shortness of breath or wheezing Collagenase (Collagenase Clostridium Hist. 30 Gm Tube) 1 appl TOPICAL DAILY [facility]; Protocol Last Admin: 05/07/23 08:58 Dose: 1 appl Dextrose (Dextrose 50 % 25 Gm/50 Ml Syringe) 25 gm IVPUSH Q15M PRN; Protocol PRN Reason: per Hypoglycemia Standing Ord. Docusate Sodium (Docusate Sodium 100 Mg Capsule) 100 mg PO DAILY PRN PRN Reason: Constipation Fluticasone/Vilanterol (Fluticasone/Vilanterol 200/25 Blst.W.Dev) 1 puff INHALE RDAILY [facility] Last Admin: 05/08/23 07:56 Dose: Not Given Furosemide (Furosemide 20 Mg Tablet) 20 mg PO DAILY PRN; Protocol PRN Reason: Edema Glucose (Glucose Gel 15 Gm Gel..Gram.) 15 gm PO Q15M PRN; Protocol PRN Reason: per Hypoglycemia Standing Ord. Guaifenesin (Guaifenesin La 600 Mg Tab.Er.12h) 1,200 mg PO BID [facility] Last Admin: 05/08/23 08:11 Dose: 1,200 mg Ceftriaxone Sodium 1 gm/ (Sodium Chloride) 50 mls @ 100 mls/hr IV Q24H [facility] Last Infusion: 05/07/23 17:43 Dose: Infused Azithromycin 500 mg/ Sodium (Chloride) 250 mls @ 125 mls/hr IV Q24H [facility] Last Infusion: 05/07/23 21:15 Dose: Infused Insulin Human Lispro (Insulin Lispro 100 Unit/Ml 3 Ml Vial) 0 unit SUBCUT QIDACHS [facility]; Protocol Last Admin: 05/08/23 08:20 Dose: Not Given Nadolol (Nadolol 40 Mg Tablet) 40 mg PO DAILY [facility]; Protocol Last Admin: 05/08/23 08:11 Dose: 40 mg Ondansetron HCl (Ondansetron Hcl 4 Mg/2 Ml Vial) 4 mg IVPUSH Q8H PRN PRN Reason: Nausea and Vomiting Pharmacy Consult (Consult Rx Perform Med Rec) 1 each MISCELLANE ONCE PRN PRN Reason: Consult order Potassium Chloride (Potassium Chloride Er 10 Meq Tablet.Er) 10 meq PO DAILY [facility] Last Admin: 05/07/23 08:58 Dose: 10 meq Potassium Chloride (Potassium Chloride Er 10 Meq Tablet.Er) 10 meq PO DAILY [facility] Sodium Chloride (0.9 % Sodium Chloride Flush 3 Ml Syringe) 3 ml IVFLUSH QSHIFT [facility] Last Admin: 05/08/23 08:14 Dose: 3 ml Warfarin Sodium (Warfarin Sodium 1.25 Mg Halftab) 1.25 mg PO DAILY@1800 [facility] Last Admin: 05/06/23 18:36 Dose: 1.25 mg Home Medications Medication Instructions Recorded Confirmed Last Taken Type alogliptin 25 mg tablet 25 mg PO DAILY 03/13/23 04/30/23 04/30/23 History collagenase clostridium histo. 250 1 appl topical DAILY 04/30/23 04/30/23 Unknown History unit/gram topical ointment (Santyl) fluticasone furoate 200 1 inh inhalation DAILY 04/30/23 05/01/23 Unknown History mcg-vilanterol 25 mcg/dose inhalation powder (Breo Ellipta) furosemide 20 mg tablet 20 mg PO DAILY PRN Edema 04/30/23 04/30/23 Unknown History warfarin 2.5 mg tablet 2.5 mg PO DAILY@1800 04/30/23 Unknown History lisinopril 10 1 tab PO DAILY 05/01/23 05/01/23 Unknown History mg-hydrochlorothiazide 12.5 mg tablet lovastatin 40 mg tablet 40 mg PO DAILY 05/01/23 05/01/23 Unknown History potassium chloride 10 mEq 10 meq PO DAILY 05/01/23 05/01/23 Unknown History tablet,extended release warfarin 2.5 mg tablet 1.25 mg PO DAILY 05/01/23 05/01/23 Unknown History Physical Exam Vital Signs: Vital Signs: Last Vital Signs Temp 97.2 F 05/08/23 07:27 Pulse 76 05/08/23 07:27 Resp 18 05/08/23 07:27 BP 135/82 05/08/23 07:27 Pulse Ox 97 05/08/23 07:27 O2 Del Method Nasal Cannula 05/08/23 07:27 O2 Flow Rate 2 05/08/23 07:27 BMI result Body Mass Index 35.6 Const: General: cooperative and no acute distress Orientation/consciousness: patient oriented x3 HEENT: Head: Yes normal to inspection, Yes normocephalic and Yes atraumatic Eyes: Conjunctivae: conjunctivae normal Neck: Neck: Yes normal visual inspection and Yes trachea midline Chest: Chest palpation & inspection: normal inspection of the chest Resp: Effort & Inspection: normal respiratory effort Cardio: Rate: regular rate GI: Inspection: Yes normal to inspection Palpation (GI): Soft to palpation : Other: purewick in place, urine tea colored Skin: General skin exam: no rashes or lesions noted Neuro: General: patient oriented x3 Extrem: General: No edema Psych: Appearance: grossly normal Results Labs 05/08/23 06:14 05/08/23 06:14 Labs: Abnormal lab results 05/07/23 05/07/23 05/07/23 Range/Units 11:18 13:30 16:23 WBC (4.8-10.8) X10*3/uL RBC (4.20-5.50) X10*6/uL Hgb (12.0-16.0) g/dl Hct (37.0-47.0) % MCH (27.0-33.0) pg MCHC (31.0-35.0) g/dl Immature Gran % (Auto) (0.0-0.4) % Neut % (Auto) (45-73) % Lymph % (Auto) (20-40) % Abs Immat Gran (auto) (0.00-0.03) X10*3/uL Absolute Neuts (auto) (2.0-8.3) x10*3/uL PT (10.0-13.1) SEC INR (0.9-1.1) Anion Gap (12-20) POC Glucose 171 H 184 H (60-115) mg/dL Random Glucose (60-115) mg/dL Urine Protein 300 (3+) H (Neg-Trace) mg/dL Urine Blood Large (3+) H (Negative) Urine Nitrite Positive H (Negative) Urine RBC >20 H (0-2) /HPF 05/07/23 05/08/23 05/08/23 Range/Units 20:23 06:14 06:14 WBC 16.8 H (4.8-10.8) X10*3/uL RBC 3.51 L (4.20-5.50) X10*6/uL Hgb 9.0 L (12.0-16.0) g/dl Hct 29.4 L (37.0-47.0) % MCH 25.6 L (27.0-33.0) pg MCHC 30.6 L (31.0-35.0) g/dl Immature Gran % (Auto) 1.0 H (0.0-0.4) % Neut % (Auto) 83.7 H (45-73) % Lymph % (Auto) 7.0 L (20-40) % Abs Immat Gran (auto) 0.16 H (0.00-0.03) X10*3/uL Absolute Neuts (auto) 14.0 H (2.0-8.3) x10*3/uL PT (10.0-13.1) SEC INR (0.9-1.1) Anion Gap 11 L (12-20) POC Glucose 148 H (60-115) mg/dL Random Glucose 133 H (60-115) mg/dL Urine Protein (Neg-Trace) mg/dL Urine Blood (Negative) Urine Nitrite (Negative) Urine RBC (0-2) /HPF 05/08/23 05/08/23 Range/Units 07:21 08:33 WBC (4.8-10.8) X10*3/uL RBC (4.20-5.50) X10*6/uL Hgb (12.0-16.0) g/dl Hct (37.0-47.0) % MCH (27.0-33.0) pg MCHC (31.0-35.0) g/dl Immature Gran % (Auto) (0.0-0.4) % Neut % (Auto) (45-73) % Lymph % (Auto) (20-40) % Abs Immat Gran (auto) (0.00-0.03) X10*3/uL Absolute Neuts (auto) (2.0-8.3) x10*3/uL PT 60.1 H (10.0-13.1) SEC INR 4.9 H (0.9-1.1) Anion Gap (12-20) POC Glucose 141 H (60-115) mg/dL Random Glucose (60-115) mg/dL Urine Protein (Neg-Trace) mg/dL Urine Blood (Negative) Urine Nitrite (Negative) Urine RBC (0-2) /HPF Short CBC 05/08/23 Range/Units 06:14 WBC 16.8 H (4.8-10.8) X10*3/uL Hgb 9.0 L (12.0-16.0) g/dl Hct 29.4 L (37.0-47.0) % Plt Count 315 (160-400) X10*3/uL BMP 05/08/23 06:14 Sodium 139 Potassium 4.1 Chloride 105 Carbon Dioxide 27 BUN 15 Creatinine 0.78 Calcium 10.1 D Urine 04/30/23 05/07/23 Range/Units 22:39 13:30 Urine Color Dark Yellow BROWN Urine Appearance Turbid Cloudy Urine pH 6.0 6.5 (5.0-9.0) Ur Specific [place] 1.020 1.025 (1.005-1.025) Urine Protein 100 (2+) H 300 (3+) H (Neg-Trace) mg/dL Urine Glucose (UA) Negative Negative (Negative) mg/dL Collected: 03/29/23-UNK Status: COMP Req#: [id number] Received: 03/29/23-1710 Source: [facility] Desc: Urine wright Subm Dr: Betsy Catherine Ordered: Urine Culture Procedure Result Verified Site Urine Culture Final 04/01/23-1125 Organism 1 Enterobacter aerogenes Quant > 100,000 cfu/mL E aerogene M.I.C. RX --------- --- Ceftriaxone 8 R Ertapenem <=0.12 S Gentamicin <=1 S Levofloxacin <=0.12 S Nitrofurantoin 32 S Trimethoprim/Sulfamethoxazole <=20 S Assessment and Plan (1) BEENA (acute kidney injury): Status: Acute (2) Hematuria: Status: Inactive (3) Supratherapeutic INR: Status: Acute Plan Renal Ultrasound Time Spent With Patient Time: Total time managing care of this patient today ____ minutes. Procedures Date of Service Date of Service: 05/08/23
[2023-05-08 11:00] VITALS: BP 120/68; PULSE 96; RESP 18; TEMP 36.7; O2SAT 98
[2023-05-08] MEDS: Potassium Chloride ER 10 MEQ TABLET.ER PO (11:47)
[2023-05-08] MEDS: Insulin Lispro 100 UNIT/ML 3 ML VIAL SUBCUT (11:48)
[2023-05-08 13:35] VITALS: BP 120/68; PULSE 96; O2SAT 98
--- NOTE | 2023-05-08 14:40 | MHC.CM.PN ---
EMR reviewed and per MD rounds, pt is medically cleared for D/C, and insurance auth is pending for STR at [facility]. CM will continue to follow for D/C.
[2023-05-08 15:06] VITALS: BMI 35.6
[2023-05-08 15:15] VITALS: BP 115/69; PULSE 66; RESP 18; TEMP 36.1; O2SAT 97
--- NOTE | 2023-05-08 15:51 | HO.PM.IMPN ---
Subjective Subjective Date of Service: 05/08/23 Review of Systems Patient seen and evaluated at bedside this morning Physical Exam Vital Signs: Vital Signs: Last Vital Signs Temp 96.9 F 05/08/23 15:15 Pulse 66 05/08/23 15:15 Resp 18 05/08/23 15:15 BP 115/69 05/08/23 15:15 Pulse Ox 97 05/08/23 15:15 O2 Del Method Nasal Cannula 05/08/23 15:15 O2 Flow Rate 2 05/08/23 15:15 BMI result Body Mass Index 35.6 Objective Data Active Medications Acetaminophen (Acetaminophen 325 Mg Tablet) 650 mg PO Q6H PRN PRN Reason: Pain, Mild (Pain Scale 1-3) Last Admin: 05/07/23 17:44 Dose: 650 mg Documented By: CLEMENTE Albuterol Sulfate (Albuterol Sulfate 90 Mcg 8 Gm Inhaler) 2 puff INHALE QID PRN PRN Reason: shortness of breath or wheezing Collagenase (Collagenase Clostridium Hist. 30 Gm Tube) 1 appl TOPICAL DAILY [facility]; Protocol Last Admin: 05/07/23 08:58 Dose: 1 appl Documented By: CLEMENTE Dextrose (Dextrose 50 % 25 Gm/50 Ml Syringe) 25 gm IVPUSH Q15M PRN; Protocol PRN Reason: per Hypoglycemia Standing Ord. Docusate Sodium (Docusate Sodium 100 Mg Capsule) 100 mg PO DAILY PRN PRN Reason: Constipation Fluticasone/Vilanterol (Fluticasone/Vilanterol 200/25 Blst.W.Dev) 1 puff INHALE RDAILY [facility] Last Admin: 05/08/23 07:56 Dose: Not Given Documented By: MELITON Non-Admin Reason: Patient Asleep Furosemide (Furosemide 20 Mg Tablet) 20 mg PO DAILY PRN; Protocol PRN Reason: Edema Glucose (Glucose Gel 15 Gm Gel..Gram.) 15 gm PO Q15M PRN; Protocol PRN Reason: per Hypoglycemia Standing Ord. Guaifenesin (Guaifenesin La 600 Mg Tab.Er.12h) 1,200 mg PO BID [facility] Last Admin: 05/08/23 08:11 Dose: 1,200 mg Documented By: DON Insulin Human Lispro (Insulin Lispro 100 Unit/Ml 3 Ml Vial) 0 unit SUBCUT QIDACHS [facility]; Protocol Last Admin: 05/08/23 11:48 Dose: 2 unit Documented By: DON Nadolol (Nadolol 40 Mg Tablet) 40 mg PO DAILY [facility]; Protocol Last Admin: 05/08/23 08:11 Dose: 40 mg Documented By: DON Ondansetron HCl (Ondansetron Hcl 4 Mg/2 Ml Vial) 4 mg IVPUSH Q8H PRN PRN Reason: Nausea and Vomiting Pharmacy Consult (Consult Rx Perform Med Rec) 1 each MISCELLANE ONCE PRN PRN Reason: Consult order Potassium Chloride (Potassium Chloride Er 10 Meq Tablet.Er) 10 meq PO DAILY [facility] Last Admin: 05/08/23 11:47 Dose: 10 meq Documented By: DON Potassium Chloride (Potassium Chloride Er 10 Meq Tablet.Er) 10 meq PO DAILY [facility] Last Admin: 05/08/23 11:48 Dose: 10 meq Documented By: DON Sodium Chloride (0.9 % Sodium Chloride Flush 3 Ml Syringe) 3 ml IVFLUSH QSHIFT [facility] Last Admin: 05/08/23 08:14 Dose: 3 ml Documented By: DON Warfarin Sodium (Warfarin Sodium 1.25 Mg Halftab) 1.25 mg PO DAILY@1800 [facility] Last Admin: 05/06/23 18:36 Dose: 1.25 mg Documented By: MARIELY Labs 05/08/23 06:14 05/08/23 06:14 Labs: Laboratory Results - last 24 hr 05/07/23 05/07/23 05/08/23 16:23 20:23 06:14 MCV 83.8 MCH 25.6 L MCHC 30.6 L RDW 15.8 Plt Count 315 MPV 9.5 Immature Gran % (Auto) 1.0 H Neut % (Auto) 83.7 H Lymph % (Auto) 7.0 L [place] % (Auto) 6.9 Eos % (Auto) 1.0 Baso % (Auto) 0.4 Lymph # (Auto) 1.2 [place] # (Auto) 1.2 Eos # (Auto) 0.2 Baso # (Auto) 0.1 Abs Immat Gran (auto) 0.16 H Absolute Neuts (auto) 14.0 H Absolute Nucleated RBC 0.000 Nucleated RBC % (auto) 0.0 PT INR Anion Gap Estim Creat Clear Calc Estimated GFR POC Glucose 184 H 148 H Random Glucose Calcium 05/08/23 05/08/23 05/08/23 06:14 07:21 08:33 MCV MCH MCHC RDW Plt Count MPV Immature Gran % (Auto) Neut % (Auto) Lymph % (Auto) [place] % (Auto) Eos % (Auto) Baso % (Auto) Lymph # (Auto) [place] # (Auto) Eos # (Auto) Baso # (Auto) Abs Immat Gran (auto) Absolute Neuts (auto) Absolute Nucleated RBC Nucleated RBC % (auto) PT 60.1 H INR 4.9 H Anion Gap 11 L Estim Creat Clear Calc 58.3 Estimated GFR > 60 POC Glucose 141 H Random Glucose 133 H Calcium 10.1 D 05/08/23 11:01 MCV MCH MCHC RDW Plt Count MPV Immature Gran % (Auto) Neut % (Auto) Lymph % (Auto) [place] % (Auto) Eos % (Auto) Baso % (Auto) Lymph # (Auto) [place] # (Auto) Eos # (Auto) Baso # (Auto) Abs Immat Gran (auto) Absolute Neuts (auto) Absolute Nucleated RBC Nucleated RBC % (auto) PT INR Anion Gap Estim Creat Clear Calc Estimated GFR POC Glucose 192 H Random Glucose Calcium Microbiology Microbiology Results: Microbiology 05/07/23 Unknown Urine Culture - Final Urine clean catch - Urine wright top No growth. Assessment and Plan Time Spent With Patient Time: Total time managing care of this patient today ____ minutes. Quality Stroke Does the patient have a stroke diagnosis?: No VTE Prior VTE?: No VTE Risk Level:: Medical - moderate - high VTE Device Contraindication: Treatment Not Indicated VTE Drug Contraindication: N/A - Med Ordered
--- NOTE | 2023-05-08 16:16 | PM.EVENT ---
Event Note Date of Service: 05/08/23 Event Note: Goals of care discussed with daughter and ascertained that pt wish not to have further testing for what is likely cancer in chest and probably elsewhere if further investigation. Patient wishes not to have further testing. I discussed hospice as an option and this will be considered on outpatient basis. Conversation witnessd by Regi Orta. KEVYN Time Spent With Patient Time: Total time managing care of this patient today ____ minutes.
--- NOTE | 2023-05-08 16:18 | PM.DS ---
DS: Providers Provider Date of Service: 05/08/23 Date of admission: 04/30/23 18:07 Primary care physician: Joe Tomlinson MD Consults: 04/30/23 18:13 Consult to General Surgery Routine Consulting Provider: [facility] [facility] Reason for consultation: Open wound under left breast 05/01/23 11:40 Consult to Pulmonology Routine Consulting Provider: [facility] [place] [facility] Reason for consultation: lung mass Has provider been notified: No 05/02/23 17:26 Consult to Cardiology Routine Consulting Provider: [facility] [place] [facility] Reason for consultation: ?chf Has provider been notified: Yes 05/07/23 13:53 Consult to Urology Routine Consulting Provider: Margaux Francis Reason for consultation: hematuria DS: Diagnosis Discharge Diagnosis (1) BEENA (acute kidney injury): Status: Acute (2) Hematuria: Status: Inactive (3) Supratherapeutic INR: Status: Acute DS: Summary Hospital Course Hospital Course: Admission H&P: Pt is a 83-year-old female with a PMH significant for?non insulin-dependent diabetes 2, HTN, HLD, AFib on warfarin, COPD, and HFpEF who presents to the ED with a chief complaint of left hip pain but with multiple other complaints. Patient is unsure of any precipitating cause of hip pain:? Denies any recent fall or trauma to the area. Thinks it may have occurred one week prior when she required assistance getting out of her recliner and her family pulled her out of her chair.? Patient's daughter notes, however, that her mother only began complaining of pain yesterday. Pt apparently was able to ambulate on her own up until 2-3 weeks ago when she began getting getting extremely short of breath with only a few steps. Has had a chronic cough for years, but worse lately. Pt with COPD but not on home O2. Pt's daughter also notes that a little over two weeks ago pt developed a blister under her left breast that eventually popped and formed an open wound. Pt has had 3 wound care clinic visits so far with a fourth scheduled for tomorrow. Pt denies chest pain/pressure, palpitations. No fever, chills, nausea, vomiting, diarrhea, abdominal pain.? Denies lightheadedness, dizziness, headache. In the ED patient was afebrile, but tachypneic up to 24, and hypotensive? and satting at 86% O2 on RA. Labs were significant for leukocytosis of 23.3, H&H of 10.7/35.1, platelets 493, Pt 74.4, INR 6.0, BUN 50, creatinine 1.5, AST 37, alk-phos 379, BNP slightly elevated of 107, albumin 2.8.? UA pending. CXR showed multifocal hazy opacities in bilateral lungs, possibility of infiltrates from inflammatory versus infectious process.? Left hip and pelvis x-ray was limited incomplete evaluation of left hip fracture, on frontal radiographs note definite fracture is evident. EKG demonstrated sinus rhythm with PACs with prolonged QTc 485. Pt was treated with IVF, ceftriaxone, and azithromycin. Pt will be admitted to the hospital for treatment and further evaluation of BEENA and acute hypoxic respiratory failure in the setting of community-acquired pneumonia. Hospital Course: Patient initially presented to the hospital complaining left hip pain, workup negative for acute fracture. Was initially treated for pneumonia with a 7 day course of antibiotics and does not need additional p.o. antibiotics on discharge. Patient was also treated for BEENA likely secondary to dehydration, which has subsequently resolved. While still in the ER awaiting room on the hospital floor patient became hypotensive as low as 84/35 and patient was treated with IVF, midodrine, and and albumin. Additional workup was performed and patient was found on CT to have multiple new pulmonary masses that are highly suspicious of cancer. Patient was offered additional testing and imaging including biopsy, but patient and family declined any further evaluation. BEENA resolved. Left breast wound healing and ultrasound showed no suspicious findings, receiving daily dressing changes with silver alginate. During patient's stay INR has been erratic, Coumadin initially held however patient received doses on 05/04, 05/05, and 05/06, Coumadin held again on 05/07. Patient's INR 2 days supratherapeutic at 4.9. Discussed with patient and family about goals of care, including hospice which the family is considering on an outpatient basis. Patient initially presented as full code, but after workup has subsequently decided to be DNR/DNI. Status at Discharge Functional status at discharge: bed bound Overall status at discharge: patient is not back to baseline Time Spent with Patient Time attestation: Total time managing care of this patient today ____ minutes. Discharge coordination time: Greater than 30 minutes Quality: Safe Use of Opioids Does Pt have an Active Cancer Diagnosis on the Problem List?: No Quality: Stroke Does the patient have a stroke diagnosis?: No Physical Exam Vital Signs: Vital Signs: Last Vital Signs Temp 96.9 F 05/08/23 15:15 Pulse 66 05/08/23 15:15 Resp 18 05/08/23 15:15 BP 115/69 05/08/23 15:15 Pulse Ox 97 05/08/23 15:15 O2 Del Method Nasal Cannula 05/08/23 15:15 O2 Flow Rate 2 05/08/23 15:15 BMI result Body Mass Index 35.6 General: AOx3, no acute distress Resp: Diffuse rhonchi and wheezing CVS: S1, S2, RRR GI: +BS, NT, obese Neuro: Cranial nerves II-XII grossly intact bilaterally. Motor grossly intact bilaterally Extremities: No edema Psych: Appropriate affect DS: Data Data Completed and Pending Labs on day of discharge: Laboratory Results - last 24 hr 05/07/23 05/07/23 05/08/23 16:23 20:23 06:14 WBC 16.8 H RBC 3.51 L Hgb 9.0 L Hct 29.4 L MCV 83.8 MCH 25.6 L MCHC 30.6 L RDW 15.8 Plt Count 315 MPV 9.5 Immature Gran % (Auto) 1.0 H Neut % (Auto) 83.7 H Lymph % (Auto) 7.0 L [place] % (Auto) 6.9 Eos % (Auto) 1.0 Baso % (Auto) 0.4 Lymph # (Auto) 1.2 [place] # (Auto) 1.2 Eos # (Auto) 0.2 Baso # (Auto) 0.1 Abs Immat Gran (auto) 0.16 H Absolute Neuts (auto) 14.0 H Absolute Nucleated RBC 0.000 Nucleated RBC % (auto) 0.0 PT INR Sodium Potassium Chloride Carbon Dioxide Anion Gap BUN Creatinine Estim Creat Clear Calc Estimated GFR POC Glucose 184 H 148 H Random Glucose Calcium 05/08/23 05/08/23 05/08/23 06:14 07:21 08:33 WBC RBC Hgb Hct MCV MCH MCHC RDW Plt Count MPV Immature Gran % (Auto) Neut % (Auto) Lymph % (Auto) [place] % (Auto) Eos % (Auto) Baso % (Auto) Lymph # (Auto) [place] # (Auto) Eos # (Auto) Baso # (Auto) Abs Immat Gran (auto) Absolute Neuts (auto) Absolute Nucleated RBC Nucleated RBC % (auto) PT 60.1 H INR 4.9 H Sodium 139 Potassium 4.1 Chloride 105 Carbon Dioxide 27 Anion Gap 11 L BUN 15 Creatinine 0.78 Estim Creat Clear Calc 58.3 Estimated GFR > 60 POC Glucose 141 H Random Glucose 133 H Calcium 10.1 D 05/08/23 11:01 WBC RBC Hgb Hct MCV MCH MCHC RDW Plt Count MPV Immature Gran % (Auto) Neut % (Auto) Lymph % (Auto) [place] % (Auto) Eos % (Auto) Baso % (Auto) Lymph # (Auto) [place] # (Auto) Eos # (Auto) Baso # (Auto) Abs Immat Gran (auto) Absolute Neuts (auto) Absolute Nucleated RBC Nucleated RBC % (auto) PT INR Sodium Potassium Chloride Carbon Dioxide Anion Gap BUN Creatinine Estim Creat Clear Calc Estimated GFR POC Glucose 192 H Random Glucose Calcium Discharge Plan Discharge Anticipated Discharge Date/Time: 05/08/23 17:30 Patient Disposition: Xfer Inpatient Rehab Fac Discharge Diagnosis: Community-acquired pneumonia, lung masses Referrals: [facility] [Outside] - 1 Week Joe Tomlinson MD [Primary Care Provider] - 1 Week Discharge Medications: Continued glipizide 5 mg tablet 10 mg PO BID 90 Days Qty: 360 1RF nadolol 40 mg tablet 40 mg PO DAILY Qty: 90 0RF Santyl 250 unit/gram ointment 1 appl topical DAILY Rx Instructions: to breast wound fluticasone furoate-vilanterol [Breo Ellipta] 200-25 mcg/dose blister with device 1 inh inhalation DAILY furosemide 20 mg tablet 20 mg PO DAILY PRN (Reason: Edema) potassium chloride 10 mEq tablet extended release 10 meq PO DAILY lovastatin 40 mg tablet 40 mg PO DAILY lisinopril-hydrochlorothiazide 10-12.5 mg Tablet 1 tab PO DAILY (DME) blood-glucose meter [[employer] Ultra2 Meter] Kit See Rx Instructions .Route Qty: 1 0RF Rx Instructions: As directed metformin 500 mg tablet extended release 24hr 500 mg PO BID 30 Days Qty: 60 3RF albuterol sulfate 90 mcg/actuation HFA aerosol inhaler 2 puff inhalation QID PRN (Reason: shortness of breath or wheezing) 30 Days Qty: 8.5 5RF alogliptin 25 mg tablet 25 mg PO DAILY Held warfarin 2.5 mg tablet 2.5 mg PO DAILY@1800 Protocol: Dose Management Condition: Saturday (Week One) Dose/Route: 2.5 mg Instruction: 1 x 2.5 mg tablet Condition: Saturday Dose/Route: 2.5 mg Instruction: 1 x 2.5 mg tablet Condition: Saturday Dose/Route: 2.5 mg Instruction: 1 x 2.5 mg tablet Condition: Saturday Dose/Route: 2.5 mg Instruction: 1 x 2.5 mg tablet Condition: Dose/Route: 0 mg Instruction: 0 tablets Condition: Saturday Dose/Route: 2.5 mg Instruction: 1 x 2.5 mg tablet Condition: Saturday Dose/Route: 2.5 mg Instruction: 1 x 2.5 mg tablet Condition: Saturday (Week Two) Dose/Route: 2.5 mg Instruction: 1 x 2.5 mg tablet Condition: Saturday Dose/Route: 2.5 mg Instruction: 1 x 2.5 mg tablet Condition: Saturday Dose/Route: 2.5 mg Instruction: 1 x 2.5 mg tablet Condition: Saturday Dose/Route: 2.5 mg Instruction: 1 x 2.5 mg tablet Condition: Dose/Route: 2.5 mg Instruction: 1 x 2.5 mg tablet Condition: Saturday Dose/Route: 2.5 mg Instruction: 1 x 2.5 mg tablet Condition: Saturday Dose/Route: 2.5 mg Instruction: 1 x 2.5 mg tablet Protocol Text: Adjustment Start Date: Saturday04/24/23 INR Value: 3.5 INR Date: 04/24/23 Recheck Date: 05/01/23 warfarin 2.5 mg tablet 1.25 mg PO DAILY Discharge Orders: Discharge Order (Routine); Ordered 05/08/23 Ordered By: Regi Orta Activity on Discharge: As tolerated Stand Alone Forms: Patient Portal Discharge page Care Plan Goals: Resolution of pneumonia Resolution of BEENA Health Concerns: Lung masses Pneumonia Left breast wound Elevated INR Plan of Treatment: Patient completed 7 day course of antibiotics in the hospital for pneumonia, no additional treatment necessary Short-term rehab Hold Coumadin until INR is within therapeutic range of 2.0-3.0 Given that the patient does not want to pursue additional workup or biopsy of lung masses, patient and family should consider hospice care has a reasonable course of care outpatient Assessment: See discharge summary
--- NOTE | 2023-05-08 16:21 | MHC.CM.PN ---
Pt medically cleared for D/C to [facility] for STR. Transportation set up via [facility] at 5:30pm today. Pts daughter Vangie updated by this CM.
[2023-05-08] MEDS: Collagenase Clostridium Hist. 30 GM TUBE 1 APPL TOPICAL (17:26)
--- NOTE | 2023-05-08 17:32 | PM.EVENT ---
Event Note Date of Service: 05/08/23 Event Note: Spoke with patient and patient's family, who wishes patient's code status to be changed to DNR/DNI. Patient unable to print name on MOLST form, so will wait for healthcare proxy to sign MOLST form for her. MOLST form sent with patient to SNF where family will complete filling it out. Time Spent With Patient Time: Total time managing care of this patient today ____ minutes.
== END 2023-05-08 18:00 | DRG 194 ==
LOC: HO.ED 16:29 → HO.EDOVER 18:12 → HO.IMC 05-01 00:04
PROVIDERS: Hospitalist; Internal Medicine; Physician Assistant Medical; Admitting Provider Student in an Organized Health Care Education/Training Program; Emergency Provider Emergency Medicine; PCP Internal Medicine; Visit Provider Student in an Organized Health Care Education/Training Program
DX: J18.9 Pneumonia, unspecified organism (principal); C34.91 Malignant neoplasm of unspecified part of right bronchus or lung; I50.32 Chronic diastolic (congestive) heart failure; J44.0 Chronic obstructive pulmonary disease with (acute) lower respiratory infection; N17.9 Acute kidney failure, unspecified; C34.92 Malignant neoplasm of unspecified part of left bronchus or lung; E78.5 Hyperlipidemia, unspecified; I11.0 Hypertensive heart disease with heart failure; R79.1 Abnormal coagulation profile; L98.492 Non-pressure chronic ulcer of skin of other sites with fat layer exposed; I48.0 Paroxysmal atrial fibrillation; E87.6 Hypokalemia; S76.012A Strain of muscle, fascia and tendon of left hip, initial encounter; X58.XXXA Exposure to other specified factors, initial encounter; D50.9 Iron deficiency anemia, unspecified; E88.09 Other disorders of plasma-protein metabolism, not elsewhere classified; D63.8 Anemia in other chronic diseases classified elsewhere; I35.0 Nonrheumatic aortic (valve) stenosis; E66.01 Morbid (severe) obesity due to excess calories; Z68.35 Body mass index [BMI] 35.0-35.9, adult; E86.0 Dehydration; I95.9 Hypotension, unspecified; D63.0 Anemia in neoplastic disease; Z20.822 Contact with and (suspected) exposure to COVID-19; Z87.891 Personal history of nicotine dependence; Z79.01 Long term (current) use of anticoagulants; Z79.51 Long term (current) use of inhaled steroids; Z79.84 Long term (current) use of oral hypoglycemic drugs; Z79.899 Other long term (current) drug therapy
CPT/HCPCS: 36415; 71045; 71250; 73502; 76642; 76770; 80048; 80076; 80202; 81001; 81003; 82607; 82746; 82803; 82947; 83540; 83605; 83880; 84145; 84484; 85025; 85027; 85610; 87040; 87086; 87147; 87205; 87635; 93005; 93306; 94640; 97110; 97116; 97161; 97530; 99285; C1758; J0456; J0696; J3370; P9047; Q9957